=== PATIENT | male | born 1970 | race Caucasian/White ===

== ENCOUNTER 2016-08-01 05:23 | Inpatient (IN) | payer BC ==
[2016-07-13 13:48] VITALS: BMI 35.0
--- NOTE | 2016-07-13 14:09 | PAT Medication Instructions ---
Service Date Jul 13, 2016. Current Home Medication List B-Complex Vitamins (Vitamin B Complex), 1 TAB PO QAM Czopgukx-Idctpccs-Sdsfmdu-Vit (Liverite), 1 TAB PO QAM Vitamins C & E (Vitamin C), 1 TAB PO QAM Medication Instructions For Your Scheduled Surgery - Hold the following medications the morning of surgery: Vitamins C & E (Vitamin C), 1 TAB PO QAM B-Complex Vitamins (Vitamin B Complex), 1 TAB PO QAM Rkveaoua-Lgtqhwui-Gwuvbdi-Vit (Liverite), 1 TAB PO QAM Nothing to eat or drink after midnight If you have any questions please call us at [phone] or [phone] or [phone]
[2016-07-13 14:28] LABS: BASO % 0.3 %; BASO ABS # 0.02 K/uL (0-0.2); COMPLETE YES; EOS % 1.3 %; HEMATOCRIT 48.3 % (42-52); IG% 0.3 %; LYMPH % 30.5 %; LYMPH ABS # 1.91 K/uL (1.2-3.4); MEAN CORPUSCULAR HEMOGLOBIN 29.7 pg (25-34); MEAN CORPUSCULAR HGB CONC 35.4 g/dl (32-36); MEAN PLATELET VOLUME 11.6 fL (7.4-10.4); MONO % 8.6 %; PLATELET COUNT 168 K/uL (130-400); RED BLOOD COUNT 5.75 M/uL (4.7-6.1); WHITE BLOOD COUNT 6.27 K/uL (4.8-10.8)
[2016-07-13 14:45] LABS: BUN/CREATININE RATIO 11.9 (10-20); CALCIUM 9.6 mg/dl (8.5-10.1); CREATININE 0.9 mg/dl (0.60-1.40); POTASSIUM 4.4 mmol/L (3.5-5.1)
[2016-08-01] VITALS (9 sets, daily range): BP systolic 120–163; BP diastolic 71–96; PULSE 71–112; TEMP 36.4–36.9; O2SAT 90–97; Ht 170.2 cm; Wt 103.1 kg
[~2016-08-01] VITALS: Ht 170.2 cm; Wt 103.1 kg
[~2016-08-01 05:23] MED LIST: B-COTAB18 PO; VITACAP26 PO; [UNRECOGNIZED DRUG - CODE] PO
[2016-08-01] MEDS ORDERED: LACTATED RINGER'S 1000ML 1,000 ML IV SCH (06:00)
[2016-08-01] MEDS ORDERED: MIDAZOLAM HCL 1 MG/ML 2ML VIAL ONE (06:32)
[2016-08-01] MEDS ORDERED: ONDANSETRON INJ 2 MG/ML 2 ML VIAL ONE (06:32)
[2016-08-01] MEDS ORDERED: GLYCOPYRROLATE INJ 0.2 MG/ML VIAL ONE (06:32)
[2016-08-01] MEDS ORDERED: LIDOCAINE HCL 2% 2 ML VIAL (20MG/ML) ONE (06:32)
[2016-08-01] MEDS ORDERED: NEOSTIGMINE METHYLSULFATE 5 MG/5 ML SYR ONE (06:32)
[2016-08-01] MEDS ORDERED: PROPOFOL IV EMULSION 10 MG/ML 20 ML VIAL IV ONE (06:32)
[2016-08-01] MEDS ORDERED: ROCURONIUM BROMIDE 10 MG/ML 5 ML VIAL ONE ×3 (06:32→10:47)
[2016-08-01] MEDS ORDERED: FENTANYL CITRATE INJ 50 MCG/1 ML 2 ML VIAL ONE ×2 (06:32→09:43)
[2016-08-01] MEDS ORDERED: BUPIVACAINE LIPOSOME 1/3% 266 MG/20 ML VIAL INFIL ONE (07:14)
[2016-08-01] MEDS ORDERED: SODIUM CHLORIDE 0.9% PF 50 ML VIAL ONE (07:14)
--- NOTE | 2016-08-01 07:27 | History and Physical ---
History & Physical Date Aug 01, 2016. History of Present Illness The patient is a 46 year old male with a serendipitously found anterior mediastinal mass. We had a long discussion in the office and here. Will proceed with a robotic thymectomy today. Additional History Hepatic Disease: No Endocrine Disorder: No Kidney Disease: No Hypertension: No Heart Disease: No Bleeding Tendencies: No Infectious Diseases: No Allergies Coded Allergies: NO KNOWN DRUG ALLERGIES (Verified Allergy, Mild, ., 08/01/16) Home Medications Scheduled B-Complex Vitamins (Vitamin B Complex), 1 TAB PO QAM Zufsrytj-Qmdwcbtq-Wqaotek-Vit (Liverite), 1 TAB PO QAM Vitamins C & E (Vitamin C), 1 TAB PO QAM Physical Examination Skin: warm/dry, no rash Eyes: normal inspection, EOMI, sclerae normal ENT: normal ENT inspection, pharynx normal Head: normocephalic, atraumatic Neck: supple, no adenopathy, trachea midline Respiratory/Chest: lungs clear, normal breath sounds, no respiratory distress Cardiovascular: regular rate, rhythm, no edema, no murmur Abdomen / GI: normal bowel sounds, non tender Back: normal inspection Extremities: normal inspection, normal range of motion Neurologic/Psych: no motor/sensory deficits, alert, normal reflexes, oriented x 3 Diagnosis Anterior mediastinal mass. ASA Classification: ASA Class I Plan of Treatment Robotic thymectomy. Long discussion with patient and family about risks / benefits.
[2016-08-01] MEDS ORDERED: HYDROmorphone INJ 2 MG/ML SYR/VIAL IV PRN (07:30)
[2016-08-01] MEDS ORDERED: PHENYLEPHRINE 100MCG/ML 5ML SYR IV PRN (07:30)
[2016-08-01] MEDS ORDERED: EpHEDrine SULFATE INJ 50 MG/ML AMP IV PRN (07:30)
[2016-08-01] MEDS ORDERED: ATROPINE SULFATE 0.1 MG/ML 5ML SYR IV PRN (07:30)
[2016-08-01] MEDS ORDERED: ONDANSETRON INJ 2 MG/ML 2 ML VIAL IV PRN ×2 (07:30→11:45)
[2016-08-01] MEDS ORDERED: DEXAMETHASONE SOD INJ 4 MG/ML VIAL ONE (09:47)
[2016-08-01] MEDS ORDERED: HYDROmorphone INJ 2 MG/ML SYR/VIAL ONE (10:37)
[2016-08-01] MEDS ORDERED: OXYCODONE HCL IR 5 MG TAB (IMMEDIATE RELEASE) PO PRN (11:45)
[2016-08-01] MEDS ORDERED: MoRPHine SULFATE 2 MG/ML CARP IV PRN (11:45)
--- NOTE | 2016-08-01 12:05 | OPERATIVE REPORT ---
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 POSTOPERATIVE DIAGNOSIS: Same. PROCEDURE: Robotic left thoracoscopic thymectomy. SURGEON: Dr. Boston. PUBLIC RELATIONS SENIOR ASSOCIATE: Fracisco Miranda PA-C. ANESTHESIA: General anesthesia endotracheal intubation with double lumen tube. SPECIFICS OF PROCEDURE: Mr. Ortega is a 46-year-old male with no medical problems whatsoever except for the fact that he is a bit overweight. He works out and is in good physical shape and has never smoked. He underwent a CT scan as he was a potential bone marrow transplant donor for a member of his family and was found to have an anterior mediastinal mass. He was referred to me. This obviously needed to come out. On 08/01/2016 the patient had an uncomplicated robotic left thoracoscopic thymectomy. This is a very large mass and we removed it. There was no associated lymph nodes. It had a capsule and was not growing into any of the surrounding structures. He tolerated it well except we did have to extend our incision in order to remove the mass as it was rather large. PROCEDURE: The patient was brought to the operating room and laid in supine position. General anesthesia induced. Endotracheal intubation was performed. The patient was left in a supine position with his left arm dropped a bit. Three separate robotic ports were placed at about the third interspace, fifth interspace and fifth interspace laterally, middle and then more medial port. We were able to see that we were in the pleural cavity quite easily. I made an operator/assistant foreman port and triangulating it between the middle and the lateral port, a couple interspaces below. The mass was immediately seen and was rather large. I freed it up meticulously from the phrenic nerve as it was adherent to it. This came off nicely and took special care not to use the cautery and to avoid any injury. Most of the time blunt dissection was done. I then was able to pull this up. I freed it up laterally and rotated it medially and then started medially and free up our attachments and came upon there were a couple of vessels that needed to be clipped coming off the innominate vein and after we got these out the mass was completely free. I then placed the mass in an Endobag. Unfortunately, it was so large I had to enlarge the insertion tract of the operator/assistant foreman's port to about 8 cm and was able to deliver it out without using a retractor but it was very large. We lost about 200 mL of blood. I irrigated out the chest nicely. Exparel 266 mg mixed in 60 mL total of normal saline was injected from the 2nd to the 11th rib although it was a bit difficult down in the lower ribs. He had no air leak at the conclusion of the case. I did place a 24-[place] chest tube in the anterior thoracostomy port and directed towards the apex. 0 Vicryl was used to close the muscle layers and 4-0 Monocryl was used to close all of the skin of the thoracoscopy incisions. Heavy silk suture was used to anchor the chest tube to the patient's skin. He tolerated it well. I attest to the content of the Intraoperative Record and any orders documented therein. Any exceptio ns are noted below.
--- NOTE | 2016-08-01 12:37 | DIAGNOSTIC IMAGING REPORT ---
CHEST ONE VIEW PORTABLE CLINICAL HISTORY: s/p med mass excision postoperative evaluation COMPARISON STUDY: No previous studies for comparison. FINDINGS: Cardiomediastinal silhouette is unremarkable. Diaphragms are smooth. There is a chest tube in the left mid chest region. There is no significant pneumothorax. Diaphragms smooth. IMPRESSION: No evidence pneumothorax. Left-sided chest tube within the central left hemithorax Electronically signed by: Scot Jeffery M.D. 08/01/2016 12:36 PM Dictated Date/Time: 08/01/2016 12:31 PM
--- NOTE | 2016-08-01 12:41 | Medical Student: [facility] ---
Operative Report Operative Date Aug 01, 2016. Pre-Operative Diagnosis Anterior Mediastinal Mass likey Thymoma Post-Operative Diagnosis same Procedure(s) Performed Robotic thorascopic thymectomy Surgeon Dr. Boston Delineator Surgeon(s) Fracisco Miranda PA-C Estimated Blood Loss 100cc Findings Thymoma approximately 5cm in diameter Specimens Anterior Mediastinal Mass Drains Chest tube Complication(s) None Disposition Recovery Room / PACU
[2016-08-01] MEDS: D5W AND 1/2NSS 1,000 ML IV SCH ×2 (14:09→21:32)
[2016-08-01] MEDS: KETOROLAC TROMETHAMINE 15 MG/ML VIAL IV. SCH ×2 (14:10→21:35)
--- NOTE | 2016-08-01 14:33 | Anesthesiology Progress Note ---
Anesthesia Post Op Note Date & Time Aug 01, 2016 at 14:33 Vital Signs Pain Intensity: 7.0 Vital Signs Past 12 Hours Date Time Temp Pulse Resp B/P Pulse Ox O2 Delivery O2 Flow Rate FiO2 08/01/16 14:04 36.9 103 20 155/87 92 Nasal Cannula 4.0 08/01/16 13:46 36.7 95 20 132/86 91 Nasal Cannula 4.0 08/01/16 12:30 97 16 154/81 97 Nasal Cannula 4 08/01/16 12:20 80 16 150/97 99 Nasal Cannula 4 08/01/16 12:10 75 16 161/99 99 Mask 10 08/01/16 12:01 87 14 164/93 99 Mask 10 08/01/16 11:52 36.5 75 14 152/85 99 Mask 10 08/01/16 05:38 36.4 99 20 156/96 97 Room Air Notes Mental Status: alert / awake / arousable, participated in evaluation Pt Amnestic to Procedure: Yes Nausea / Vomiting: adequately controlled Pain: adequately controlled Airway Patency, RR, SpO2: stable & adequate BP & HR: stable & adequate Hydration State: stable & adequate Anesthetic Complications: no major complications apparent
[2016-08-01] MEDS: METOCLOPRAMIDE HCL INJ 5 MG/ML 2 ML VIAL IV. SCH ×2 (15:26→21:35)
[2016-08-01] MEDS: ACETAMINOPHEN IV 1,000 MG in EMPTY BAG 0 ML IV SCH ×2 (15:26→21:36)
[2016-08-01] MEDS: CEFAZOLIN IV 2,000 MG in DEXTROSE 5% 50ML 100 ML IV SCH ×2 (15:47→21:36)
[2016-08-01] MEDS: DOCUSATE SODIUM 100 MG CAP PO SCH (20:54)
[2016-08-02 04:11] VITALS: BP 130/66; PULSE 71; TEMP 36.7; O2SAT 93
[2016-08-02] MEDS: KETOROLAC TROMETHAMINE 15 MG/ML VIAL IV. SCH (05:41)
[2016-08-02] MEDS: METOCLOPRAMIDE HCL INJ 5 MG/ML 2 ML VIAL IV. SCH (05:41)
[2016-08-02] MEDS: ACETAMINOPHEN IV 1,000 MG in EMPTY BAG 0 ML IV SCH (05:42)
[2016-08-02] MEDS: D5W AND 1/2NSS 1,000 ML IV SCH (07:32)
--- NOTE | 2016-08-02 07:40 | DIAGNOSTIC IMAGING REPORT ---
CHEST ONE VIEW PORTABLE CLINICAL HISTORY: s/p med mass excision postoperative evaluation COMPARISON STUDY: 08/01/2016 FINDINGS: Stable postoperative changes left hemithorax. Subsegmental atelectasis left midlung. Left-sided chest tube in position. No pneumothorax. IMPRESSION: Stable postoperative changes left hemithorax. No evidence pneumothorax. Stable sub-segmental atelectasis left midlung Electronically signed by: Scot Jeffery M.D. 08/02/2016 7:39 AM Dictated Date/Time: 08/02/2016 7:34 AM
[2016-08-02] MEDS ORDERED: OXYC-57 PO (07:59)
[2016-08-02] MEDS ORDERED: CLC100 PO (07:59)
--- NOTE | 2016-08-02 08:01 | Discharge Instructions ---
Discharge Instructions Date of Service Aug 02, 2016. Admission Reason for Admission: Mediastinal Mass Discharge Discharge Diagnosis / Problem: Mediastinal Mass Discharge Goals Goal(s): Learn about illness Activity Recommendations Activity Limitations: as noted below Lifting Limitations: none Shower/Bathe: may shower/bathe in [address] if taking percocet 2. Do not fly until cleared to do so by Dr. Boston 3. You may remove dressings in 3 days and shower thereafter. No tub baths. . Instructions / Follow-Up Instructions / Follow-Up 1. Office appointment with Dr. Boston in 1 week. Office will call with date and time of appointment. You will need a chest x-ray prior to appointment. Current Hospital Diet Patient's current hospital diet: Regular Diet Discharge Diet Recommended Diet: Regular Diet Procedures Procedures Performed: Robotic assisted thymectomy Pending Studies Studies pending at discharge: no Medical Emergencies . Who to Call and When: Medical Emergencies: If at any time you feel your situation is an emergency, please call 911 immediately. . Non-Emergent Contact Non-Emergency issues call your: Surgeon Call Non-Emergent contact if: you have a fever, your pain is not controlled, wound has increased drainage . "Provider Documentation" section prepared by Nathaniel Miranda. VTE Core Measure Inpt VTE Proph given/why not?: Enoxaparin (Lovenox)SQ
--- NOTE | 2016-08-02 08:31 | DIAGNOSTIC IMAGING REPORT ---
CHEST ONE VIEW PORTABLE CLINICAL HISTORY: Chest tube removal. COMPARISON STUDY: Chest radiograph August 02, 2016. FINDINGS: Lung volumes are normal. Hazy left midlung opacity is unchanged. The left chest tube has been removed. There is no pneumothorax. Cardiac size is normal. Mediastinal contours are normal. IMPRESSION: 1. No pneumothorax following left chest tube removal. 2. No change in mild left midlung opacity. Electronically signed by: Shamar Nelson M.D. 08/02/2016 8:30 AM Dictated Date/Time: 08/02/2016 8:23 AM
[2016-08-02] MEDS ORDERED: ENOXAPARIN 40 MG/0.4 ML SYR SQ SCH (09:00)
[2016-08-02] MEDS: DOCUSATE SODIUM 100 MG CAP PO SCH (09:02)
--- NOTE | 2016-08-02 09:55 | Anesthesiology Progress Note ---
Anesthesia Post Op Note Date & Time Aug 02, 2016 at 09:54 Vital Signs Pain Intensity: 4.0 Vital Signs Past 12 Hours Date Time Temp Pulse Resp B/P Pulse Ox O2 Delivery O2 Flow Rate FiO2 08/02/16 04:11 36.7 71 17 130/66 93 Room Air 08/01/16 23:48 Nasal Cannula 08/01/16 23:05 36.7 92 18 120/73 90 Room Air Notes Mental Status: alert / awake / arousable Pt Amnestic to Procedure: Yes Nausea / Vomiting: adequately controlled Pain: adequately controlled Airway Patency, RR, SpO2: stable & adequate BP & HR: stable & adequate Hydration State: stable & adequate
[2016-08-02 10:25] VITALS: BP 130/66; PULSE 71; TEMP 36.7; O2SAT 93
--- NOTE | 2016-08-10 11:18 | DISCHARGE SUMMARY ---
DISCHARGE DIAGNOSIS: 1. Thymoma. HOSPITAL COURSE: This is a very nice 46-year-old male who was being worked up as a bone marrow donor and underwent a CT scan of his chest which found an asymptomatic mass in his anterior mediastinum. We suspected this was a thymoma, but he had no evidence of any metastases or lymphadenopathy. We elected to proceed with a robotic thymectomy. On 08/01/2016, the patient underwent an uncomplicated robotic thymectomy from the left side. We used 3 incisions. He tolerated it well. We placed a chest tube had no air leak and very little in the way of drainage. We removed his chest tube the following day and discharged him home. He was tolerating diet. His pain was very well controlled. I will see him back in the office in a week to go over his final pathology.
== END 2016-08-02 10:56 | disposition home or self-care (01) | DRG 804 ==
LOC: ENRESERVTM → ENRESERVDT → C.ACU 05:23 → C.MSN 11:36
PROVIDERS: ADMIT Surgery; ATTEND Surgery
PROC: 07TM4ZZ Resection of Thymus, Percutaneous Endoscopic Approach (ICD-10-PCS; principal; 2016-08-01 07:30)
PROC: 8E0W4CZ Robotic Assisted Procedure of Trunk Region, Percutaneous Endoscopic Approach (ICD-10-PCS; principal; 2016-08-01 07:30)
DX: D15.0 Benign neoplasm of thymus (principal); E66.3 Overweight; Z68.35 Body mass index [BMI] 35.0-35.9, adult

== ENCOUNTER → 2016-08-06 | Outpatient (CLI) | payer BC ==
[~2016-08-06] MED LIST changes: +CLC100 PO; +OXYC-57 PO
--- NOTE | 2016-08-06 13:09 | DIAGNOSTIC IMAGING REPORT ---
TWO VIEW CHEST CLINICAL HISTORY: Thymoma. FINDINGS: PA and lateral chest radiographs are compared to study dated 08/02/2016 and correlated with chest CT dated 06/08/2016. The cardiomediastinal silhouette is unremarkable. The lungs and pleural spaces are clear. There is no pneumothorax. The bony thorax appears intact. IMPRESSION: No active disease in the chest. Electronically signed by: Baldomero Díaz M.D. 08/06/2016 1:08 PM Dictated Date/Time: 08/06/2016 1:08 PM
== END | disposition home or self-care (01) ==
LOC: C.RAD1850 12:26
PROVIDERS: ATTEND Surgery
DX: D15.0 Benign neoplasm of thymus (principal)

== ENCOUNTER → 2016-11-10 | Outpatient (CLI) | payer BC ==
[2016-11-10 12:01] LABS: BASO % 0.3 %; BASO ABS # 0.02 K/uL (0-0.2); COMPLETE YES; EOS % 3.1 %; HEMATOCRIT 46.8 % (42-52); IG% 0.8 %; LYMPH % 27.9 %; LYMPH ABS # 1.71 K/uL (1.2-3.4); MEAN CELL VOLUME 84.9 fL (80-100); MEAN CORPUSCULAR HEMOGLOBIN 29.6 pg (25-34); MEAN CORPUSCULAR HGB CONC 34.8 g/dl (32-36); MEAN PLATELET VOLUME 11.7 fL (7.4-10.4); MONO % 7.2 %; NEUT % 60.7 %; PLATELET COUNT 151 K/uL (130-400); RED BLOOD COUNT 5.51 M/uL (4.7-6.1); WHITE BLOOD COUNT 6.14 K/uL (4.8-10.8)
[2016-11-10 12:30] LABS: CHOLESTEROL/HDL RATIO 6.8; PROSTATE SPECIFIC ANTIGEN 0.578 ng/ml (0.000-4.000)
[2016-11-10 12:47] LABS: HEPATITIS B AB NEG
== END | disposition home or self-care (01) ==
LOC: C.LAB 11:38
PROVIDERS: ATTEND Internal Medicine
DX: R74.8 Abnormal levels of other serum enzymes (principal); Z12.5 Encounter for screening for malignant neoplasm of prostate

== ENCOUNTER → 2017-03-08 | Outpatient (CLI) | payer BC ==
[~2017-03-08] MED LIST changes: -OXYC-57 PO
--- NOTE | 2017-03-08 16:36 | DIAGNOSTIC IMAGING REPORT ---
(CHEST) THORAX WITHOUT CLINICAL HISTORY: Z86.018 thymoma status post resection. COMPARISON STUDY: Outside CT scan dated 06/08/2016 CT DOSE: 836.30 mGy.cm TECHNIQUE: CT of the thorax was performed from the thoracic inlet to the lung bases. Images are reviewed in the axial, sagittal, and coronal planes. IV contrast was not administered for this examination. A dose lowering technique was utilized adhering to the principles of ALARA. FINDINGS: Thyroid: Imaged portions of the thyroid gland are normal in appearance. Thoracic aorta: The thoracic aorta is normal in course and caliber, noting standard 3 vessel arch anatomy. Heart: The heart is normal in size and configuration, without pericardial effusion. Lungs and pleural spaces: No pleural effusions are visualized. There is no evidence of focal pulmonary consolidation. There is a stable 3 mm right apical pulmonary nodule as visualized in image #[id number]. Mediastinum: There is been interval resection of the 6.7 cm anterior mediastinal mass. There is 7 mm of residual soft tissue anterior to the aortic arch. This may be postsurgical. This examination will serve as a postsurgical baseline. Surveillance is recommended. Loli: There is no evidence of pathologic hilar adenopathy given the limitations of a noncontrast study. Axilla: There is no evidence of pathologic axillary lymphadenopathy Upper abdomen: There is hepatic steatosis Skeletal structures: There are no lytic or blastic osseous lesions. IMPRESSION: 1. Interval resection of the 6.7 cm anterior mediastinal mass 2. 7 mm of residual soft tissue anterior to the aortic arch. This may be postsurgical. This examination will serve as a postsurgical baseline. Further surveillance is recommended. 3. Stable 3 mm right apical pulmonary nodule Electronically signed by: Primo Rolle M.D. 03/08/2017 4:35 PM Dictated Date/Time: 03/08/2017 4:29 PM
== END | disposition home or self-care (01) ==
LOC: C.CTS 16:19
PROVIDERS: ATTEND Surgery
DX: Z86.018 Personal history of other benign neoplasm (principal); Z98.890 Other specified postprocedural states; R91.1 Solitary pulmonary nodule

== ENCOUNTER → 2017-07-24 | Outpatient (CLI) | payer BC ==
[2017-07-24 09:57] LABS: ALBUMIN 4.3 gm/dl (3.4-5.0)
[2017-07-24 10:00] LABS: TOTAL PROTEIN 7.5 gm/dl (6.4-8.2)
== END | disposition home or self-care (01) ==
LOC: C.LAB1850 08:33
PROVIDERS: ATTEND Internal Medicine
DX: R74.8 Abnormal levels of other serum enzymes (principal); E78.1 Pure hyperglyceridemia

== ENCOUNTER 2021-04-30 01:12 | Inpatient (IN) ==
[2021-04-30] MEDS ORDERED: dexAMETHasone**PF** 10 MG/ML VIAL IV ONE (01:28)
[2021-04-30] MEDS ORDERED: ALBUT/IPRATROP 3MG/0.5MG NEB 3 ML VIAL INH STA (01:28)
[2021-04-30 01:53] LABS: Basophils # (auto) 0.02 K/uL (0-0.2); Basophils % (auto) 0.2 %; Eosinophils # (auto) 0.01 K/uL (0-0.5); Eosinophils % (auto) 0.1 %; Hematocrit (blood only) 46.7 % (42-52); Hemoglobin 16.3 g/dL (14.0-18.0); Immature Granulocytes # (auto) 0.05 K/uL (0.00-0.02); Immature Granulocytes % (auto) 0.4 %; Lymphocytes # (auto) 0.51 K/uL (1.2-3.4); Lymphocytes % (auto) 4.3 %; Mean Corpuscular Hemoglobin 30.8 pg (25-34); Mean Corpuscular Hgb Conc 34.9 g/dL (32-36); Mean Corpuscular Volume 88.3 fL (80-100); Mean Platelet Volume 11.6 fL (7.4-10.4); Monocytes # (auto) 0.58 K/uL (0.11-0.59); Monocytes % (auto) 4.8 %; Neutrophils # (auto) 10.79 K/uL (1.4-6.5); Neutrophils % (auto) 90.2 %; Platelet Count 148 K/uL (130-400); RDW Standard Deviation 42.2 fL (36.4-46.3); Red Blood Count 5.29 M/uL (4.7-6.1); White Blood Count 11.96 K/uL (4.8-10.8)
[2021-04-30 02:26] LABS: Alanine Aminotransferase 114 (12-78); Albumin Globulin Ratio 0.9 (0.9-2); Albumin Level 3.6 gm/dl (3.4-5.0); Alkaline Phosphatase 83 U/L (45-117); Aspartate Aminotransferase 60 U/L (15-37); BUN Creatinine Ratio 16.2 (10-20); Bilirubin,Total 1.4 mg/dl (0.2-1); Blood Urea Nitrogen 16 mg/dl (7-18); Calcium 9.6 mg/dl (8.5-10.1); Carbon Dioxide 23 mmol/L (21-32); Chloride 101 mmol/L (98-107); Creatinine Clr Calc Pharmacy 101.7 ml/min; Est GFR (African American) 104.9 ml/min; Est GFR (Non-African American) 90.5 ml/min; Globulin 4.2 gm/dl (2.5-4.0); Glucose 332 mg/dl (70-99); Potassium 3.9 mmol/L (3.5-5.1); Sodium 135 mmol/L (136-145); Total Protein 7.8 gm/dl (6.4-8.2); Troponin I < 0.015 ng/ml (0-0.045)
[2021-04-30] MEDS ORDERED: SODIUM CHLORIDE 0.9% 1000ML 1,000 ML IV ONE (02:26)
[2021-04-30] MEDS ORDERED: NovoLIN-R INSULIN PER UNIT CHARGE IV STA (02:26)
[2021-04-30 02:41] LABS: Influenza A virus by PCR Negative (Neg); Influenza B virus by PCR Negative (Neg); RSV by PCR Negative (Neg)
[2021-04-30 02:48] LABS: SARS CoV2 RNA(COVID-19) InHosp POSITIVE (Negative)
[2021-04-30 02:50] LABS: Beta-Hydroxybutyrate 26.07 mg/dl (0.2-2.81)
--- NOTE | 2021-04-30 03:08 | Emergency Department Note ---
Impression & Plan Pneumonia due to 2019-nCoV, Hypoxia, Acute hyperglycemia ED Provider Note CHIEF COMPLAINT: Shortness of breath HISTORY OF PRESENT ILLNESS: This 51-year-old male patient presents to the emergency department presents emergency department with complaints of shortness of breath. Patient states he has been ill for about 1 week. He has had some fevers, cough and believes it may be COVID-19. He is not vaccinated. He called the ambulance today because the shortness of breath became severe. He was noted to be 71% on room air by EMS. He is currently saturating above 90% on nonrebreather. Patient has been using occasional Tylenol for fevers. He states his is at home with a very similar illness but seems to be getting better. His daughter graduates from [employer] next week and he would like to see her graduate. REVIEW OF SYSTEMS: A review of systems was performed with positives and pertinent negatives listed in the history of present illness. 10 systems were reviewed and are otherwise negative. ALLERGIES: see below MEDICATIONS: see below PMH: see below SOCIAL HISTORY: see below DDx: Reactive airway disease, pneumonia, pneumothorax, COPD, CHF, infections, cardiac ischemia, pulmonary embolism, musculoskeletal, gastrointestinal, as well as other pathologies. PHYSICAL EXAM: Vital signs reviewed. Noted to be hypoxic on room air to 71% General: Chronically ill-appearing 51-year-old male, in some respiratory discomfort on nonrebreather. HEENT: No scleral icterus, PERRLA, neck supple. Atraumatic. Cardiovascular: Tachycardic rate and regular rhythm, no extra sounds. Pulmonary: Coarse breath sounds to auscultation bilaterally, increased work of breathing. On nonrebreather Abdomen: Soft, nontender, nondistended, positive bowel sounds. Musculoskeletal: Atraumatic, no peripheral edema. Neurologic: Patient awake alert and oriented x 3 Skin: Warm, dry, no rash EMERGENCY DEPARTMENT COURSE/MDM: This patient was evaluated and appeared to be in no significant distress. IV access was obtained and laboratory work was drawn. Patient was placed on a monitor car operator noted to be in a sinus tachycardia. Chest x-ray was performed and reveals a significant viral pneumonitis pattern. Patient is tested positive for COVID-19. He was given IV dexamethasone, DuoNeb treatment. He was able to maintain his oxygen saturations on 15 L nonrebreather. An order for BiPAP was placed as the patient seem to be tired from a respiratory standpoint and awfully tachypneic. CT imaging of the chest was performed and reveals no evidence of PE. The hospitalist service was consulted as the patient will require further management. The patient has expressed an understanding of the plan and agreed. MONITORING: An order for cardiac monitoring was placed and the patient is noted to be in a sinus tachycardia at 122 beats per minute. RADIOLOGY: See below EKG: Sinus tachycardia at 106 bpm. Left atrial enlargement. No PVC, no PAC. Nonspecific ST abnormality. DISPOSITION:admit I have personally spent greater than 40 minutes of critical care time in the direct management of this patient. This includes bedside care, interpretation of diagnostic studies, and testing, discussion with consultants, patient, and family members, and other required patient management activities. This 40 minutes is in excess of all separately billable procedures. Past Med/Surg History Medical History (Updated 05/01/21 @ 21:19 by Denzel Pizarro) Thymoma, benign Surgical History History of hernia repair S/P tonsillectomy S/P wisdom tooth extraction Family History Grandfather (Maternal) Myocardial infarction Grandfather (Paternal) Myocardial infarction Father AML (acute myeloblastic leukemia) Denies family history of Ovarian cancer Prostate cancer Breast cancer Colorectal cancer Social History Smoking Status: Never smoker Hx Alcohol Use: No Hx Substance Use: No Preferred Language: Lao Communication Ability: Effective Hairspring Truer Required: No Beliefs That Will Affect Care: None marital status: Current Living Situation: Family current occupational status: employed current occupation: Internet Sales Representative Other Information That Helps Us Care for You: No Feels Safe at Home: Yes Safety Concerns: Feels Safe At This Time Childhood Exposure to Second-Hand Smoke: Yes Dental Care, Regularly: Yes Physical Activity Frequency: 5-6 Times per Week Seatbelt Use: always Sunscreen Use: Yes Assistive Devices: Glasses and Oxygen - Continuous Allergies Allergies Allergy/AdvReac Type Severity Reaction Status Date / Time No Known Drug Allergies Allergy Mild . Verified 04/30/21 02:37 Home Meds Home Medications Medication Instructions Recorded Confirmed ascorbic acid (vitamin C) 500 mg 0 mg PO DAILY 04/30/21 04/30/21 tablet (Vitamin C) cholecalciferol (vitamin D3) 25 0 mcg PO DAILY 04/30/21 04/30/21 mcg (1,000 unit) tablet (Vitamin D3) ivermectin 3 mg tablet 12 mg PO .TODAY 04/30/21 04/30/21 vitamin B complex 1 tab PO DAILY 04/30/21 04/30/21 Results & Data (ED) Vital Signs Vital Signs - 24 hr 04/30/21 01:13 04/30/21 01:18 Temperature 36.5 C Temperature Source Temporal Artery Scan Pulse Rate 122 H Pulse Rate [Right Finger] 110 H Respiratory Rate 38 H 20 Respiratory Effort / Characteristics Labored Short of Breath Non-Labored Spontaneous Respiratory Depth Shallow Normal Blood Pressure 155/94 H Blood Pressure [Right Arm] 119/87 Blood Pressure Mean 114 Blood Pressure Mean [Right Arm] 97 Blood Pressure Position Sitting Pulse Oximetry 90 71 L Oxygen Delivery Method Non-rebreather Room Air Oxygen Flow Rate 15 Sepsis Recent Fever Within 48 Hours No Sepsis New/Unexplained Change in Mental Status N/A Sepsis Action Taken by Nursing No Action Required Oxygen Flow Rate - Titration 15 Pulse Oximetry Post Tiitration 91 Home Medications Current Medication List: was personally reviewed by me Laboratory Data Attestation: I reviewed the patient's lab results. Result diagrams: 05/04/21 07:10 05/04/21 07:10 Lab Results 04/30/21 04/30/21 04/30/21 Range/Units 01:39 01:39 01:39 WBC 11.96 H (4.8-10.8) K/uL RBC 5.29 (4.7-6.1) M/uL Hgb 16.3 (14.0-18.0) g/dL Hct 46.7 (42-52) % MCV 88.3 (80-100) fL MCH 30.8 (25-34) pg MCHC 34.9 (32-36) g/dL RDW Std Deviation 42.2 (36.4-46.3) fL RDW Coeff of Wan 13.0 (11.5-14.5) % Plt Count 148 (130-400) K/uL MPV 11.6 H (7.4-10.4) fL Immature Gran % (Auto) 0.4 % Neut % (Auto) 90.2 % Lymph % (Auto) 4.3 % Harney % (Auto) 4.8 % Eos % (Auto) 0.1 % Baso % (Auto) 0.2 % Neut # (Auto) 10.79 H (1.4-6.5) K/uL Lymph # (Auto) 0.51 L (1.2-3.4) K/uL Harney # (Auto) 0.58 (0.11-0.59) K/uL Eos # (Auto) 0.01 (0-0.5) K/uL Baso # (Auto) 0.02 (0-0.2) K/uL Immature Gran # (Auto) 0.05 H (0.00-0.02) K/uL Sodium 135 L (136-145) mmol/L Potassium 3.9 (3.5-5.1) mmol/L Chloride 101 (98-107) mmol/L Carbon Dioxide 23 (21-32) mmol/L Anion Gap 11.0 (3-11) BUN 16 (7-18) mg/dl Creatinine 0.96 (0.6-1.4) mg/dl Est Cr Clr Drug Dosing 101.7 ml/min Est GFR ( Amer) 104.9 ml/min Est GFR (Non-Af Amer) 90.5 ml/min BUN/Creatinine Ratio 16.2 (10-20) Glucose 332 H* (70-99) mg/dl POC Glucose (70-99) mg/dl Calcium 9.6 (8.5-10.1) mg/dl Total Bilirubin 1.4 H (0.2-1) mg/dl AST 60 H (15-37) U/L ALT 114 H (12-78) Alkaline Phosphatase 83 (45-117) U/L Troponin I < 0.015 (0-0.045) ng/ml C-Reactive Protein 21.20 H (0-0.29) mg/dl Total Protein 7.8 (6.4-8.2) gm/dl Albumin 3.6 (3.4-5.0) gm/dl Globulin 4.2 H (2.5-4.0) gm/dl Albumin/Globulin Ratio 0.9 (0.9-2) Beta-Hydroxybutyric Acd 26.07 H (0.2-2.81) mg/dl SARS-CoV-2 (PCR) (Negative) Influenza Type A (PCR) (Neg) Influenza Type B (PCR) (Neg) RSV (RT-PCR) (Neg) 04/30/21 04/30/21 Range/Units 01:41 04:35 WBC (4.8-10.8) K/uL RBC (4.7-6.1) M/uL Hgb (14.0-18.0) g/dL Hct (42-52) % MCV (80-100) fL MCH (25-34) pg MCHC (32-36) g/dL RDW Std Deviation (36.4-46.3) fL RDW Coeff of Wan (11.5-14.5) % Plt Count (130-400) K/uL MPV (7.4-10.4) fL Immature Gran % (Auto) % Neut % (Auto) % Lymph % (Auto) % Harney % (Auto) % Eos % (Auto) % Baso % (Auto) % Neut # (Auto) (1.4-6.5) K/uL Lymph # (Auto) (1.2-3.4) K/uL Harney # (Auto) (0.11-0.59) K/uL Eos # (Auto) (0-0.5) K/uL Baso # (Auto) (0-0.2) K/uL Immature Gran # (Auto) (0.00-0.02) K/uL Sodium (136-145) mmol/L Potassium (3.5-5.1) mmol/L Chloride (98-107) mmol/L Carbon Dioxide (21-32) mmol/L Anion Gap (3-11) BUN (7-18) mg/dl Creatinine (0.6-1.4) mg/dl Est Cr Clr Drug Dosing ml/min Est GFR ( Amer) ml/min Est GFR (Non-Af Amer) ml/min BUN/Creatinine Ratio (10-20) Glucose (70-99) mg/dl POC Glucose 310 H* (70-99) mg/dl Calcium (8.5-10.1) mg/dl Total Bilirubin (0.2-1) mg/dl AST (15-37) U/L ALT (12-78) Alkaline Phosphatase (45-117) U/L Troponin I (0-0.045) ng/ml C-Reactive Protein (0-0.29) mg/dl Total Protein (6.4-8.2) gm/dl Albumin (3.4-5.0) gm/dl Globulin (2.5-4.0) gm/dl Albumin/Globulin Ratio (0.9-2) Beta-Hydroxybutyric Acd (0.2-2.81) mg/dl SARS-CoV-2 (PCR) POSITIVE A* (Negative) Influenza Type A (PCR) Negative (Neg) Influenza Type B (PCR) Negative (Neg) RSV (RT-PCR) Negative (Neg) Administered Medications Ascorbic Acid (Ascorbic Acid 500 Mg Tab) 500 mg PO DAILY [facility] Stop: 05/30/21 08:59 Last Admin: 05/04/21 09:12 Dose: 500 mg Documented by: [id number] Admin: 05/03/21 08:14 Dose: 500 mg Documented by: [id number] Admin: 05/02/21 08:54 Dose: 500 mg Documented by: [id number] Admin: 05/01/21 15:12 Dose: 500 mg Documented by: [id number] Admin: 04/30/21 08:36 Dose: 500 mg Documented by: [id number] Azithromycin (Azithromycin 250 Mg Tab) 250 mg PO [facility] Stop: 05/05/21 08:59 Last Admin: 05/04/21 09:12 Dose: 250 mg Documented by: [id number] Admin: 05/03/21 08:14 Dose: 250 mg Documented by: [id number] Admin: 05/02/21 09:44 Dose: 250 mg Documented by: [id number] Baricitinib (4mg Daily X 14 Days (Egfr >60 Ml/Min/1.73m2)) 4 mg PO DAILY [facility]; Protocol Stop: 05/14/21 10:59 Last Admin: 05/04/21 09:11 Dose: 4 mg Documented by: [id number] Admin: 05/03/21 08:15 Dose: 4 mg Documented by: [id number] Admin: 05/02/21 08:53 Dose: 4 mg Documented by: [id number] Admin: 05/01/21 18:12 Dose: 4 mg Documented by: [id number] Admin: 04/30/21 10:47 Dose: 4 mg Documented by: [id number] Dextrose (Dextrose 50% 50 Ml Syringe) 25 - 50 ml IV UD PRN; Protocol PRN Reason: Hypoglycemia Protocol Stop: 05/30/21 06:32 Last Admin: 05/02/21 05:03 Dose: 25 ml Documented by: [id number] Enoxaparin Sodium (Enoxaparin Inj 60 Mg/0.6 Ml Syr) 50 mg SQ Q12H [facility] Stop: 05/30/21 07:59 Last Admin: 05/04/21 09:13 Dose: 50 mg Documented by: [id number] Admin: 05/03/21 20:38 Dose: 50 mg Documented by: [id number] Admin: 05/03/21 08:15 Dose: 50 mg Documented by: [id number] Admin: 05/02/21 20:23 Dose: 50 mg Documented by: [id number] Admin: 05/02/21 08:54 Dose: 50 mg Documented by: [id number] Admin: 05/01/21 20:27 Dose: 50 mg Documented by: [id number] Admin: 05/01/21 09:47 Dose: 50 mg Documented by: [id number] Admin: 04/30/21 21:05 Dose: 50 mg Documented by: [id number] Admin: 04/30/21 08:33 Dose: 50 mg Documented by: [id number] Famotidine (Famotidine 20 Mg Tab) 20 mg PO BID [facility] Stop: 05/30/21 08:59 Last Admin: 05/04/21 09:13 Dose: 20 mg Documented by: [id number] Admin: 05/03/21 20:37 Dose: 20 mg Documented by: [id number] Admin: 05/03/21 08:14 Dose: 20 mg Documented by: [id number] Admin: 05/02/21 20:23 Dose: 20 mg Documented by: [id number] Admin: 05/02/21 08:55 Dose: 20 mg Documented by: [id number] Admin: 05/01/21 20:25 Dose: 20 mg Documented by: [id number] Admin: 05/01/21 09:58 Dose: 20 mg Documented by: [id number] Admin: 04/30/21 21:06 Dose: 20 mg Documented by: [id number] Admin: 04/30/21 08:44 Dose: 20 mg Documented by: [id number] Guaifenesin (Guaifenesin 600 Mg Tabcr) 1,200 mg PO Q12 [facility] Stop: 05/30/21 08:59 Last Admin: 05/04/21 09:13 Dose: 1,200 mg Documented by: [id number] Admin: 05/03/21 20:37 Dose: 1,200 mg Documented by: [id number] Admin: 05/03/21 08:16 Dose: 1,200 mg Documented by: [id number] Admin: 05/02/21 20:23 Dose: 1,200 mg Documented by: [id number] Admin: 05/02/21 08:54 Dose: 1,200 mg Documented by: [id number] Admin: 05/01/21 20:26 Dose: 1,200 mg Documented by: [id number] Admin: 05/01/21 09:58 Dose: 1,200 mg Documented by: [id number] Admin: 04/30/21 21:06 Dose: 1,200 mg Documented by: [id number] Admin: 04/30/21 08:40 Dose: 1,200 mg Documented by: [id number] Dexamethasone 6 mg/ Syringe 1.5 mls @ 1 mls/min IV Q24H [facility] Stop: 05/30/21 08:59 Last Admin: 05/04/21 09:38 Dose: 1 mls/min Documented by: [id number] Admin: 05/03/21 08:14 Dose: 1 mls/min Documented by: [id number] Admin: 05/02/21 08:53 Dose: 1 mls/min Documented by: [id number] Admin: 05/01/21 09:48 Dose: 1 mls/min Documented by: [id number] Admin: 04/30/21 08:38 Dose: 1 mls/min Documented by: [id number] Remdesivir 100 mg/ Sodium (Chloride) 250 mls @ 250 mls/hr IV Q24H [facility]; Protocol Stop: 05/04/21 12:59 Last Infusion: 05/03/21 14:03 Dose: 0 mls/hr Documented by: [id number] Admin: 05/03/21 12:54 Dose: 250 mls/hr Documented by: [id number] Infusion: 05/02/21 14:09 Dose: 0 mls/hr Documented by: [id number] Admin: 05/02/21 12:50 Dose: 250 mls/hr Documented by: [id number] Infusion: 05/01/21 21:45 Dose: 0 mls/hr Documented by: [id number] Admin: 05/01/21 18:12 Dose: 250 mls/hr Documented by: [id number] Insulin Aspart (Insulin Aspart Per Unit) 0 units SC ACHS [facility] Stop: 05/30/21 16:29 Last Admin: 05/04/21 09:24 Dose: 7 units Documented by: [id number] Cosigned by: [id number] Admin: 05/03/21 21:39 Dose: Not Given Documented by: [id number] Admin: 05/03/21 17:49 Dose: 8 units Documented by: [id number] Cosigned by: [id number] Admin: 05/03/21 12:46 Dose: 11 units Documented by: [id number] Cosigned by: [id number] Admin: 05/03/21 08:48 Dose: 11 units Documented by: [id number] Cosigned by: [id number] Admin: 05/02/21 20:32 Dose: 1 units Documented by: [id number] Cosigned by: [id number] Admin: 05/02/21 17:43 Dose: 13 units Documented by: [id number] Cosigned by: [id number] Admin: 05/02/21 13:02 Dose: 7 units Documented by: [id number] Cosigned by: [id number] Admin: 05/02/21 09:11 Dose: 10 units Documented by: [id number] Cosigned by: [id number] Admin: 05/01/21 21:31 Dose: Not Given Documented by: [id number] Cosigned by: [id number] Admin: 05/01/21 18:57 Dose: Not Given Documented by: [id number] Cosigned by: [id number] Admin: 05/01/21 18:57 Dose: Not Given Documented by: [id number] Cosigned by: [id number] Admin: 05/01/21 07:38 Dose: Not Given Documented by: [id number] Admin: 04/30/21 21:07 Dose: Not Given Documented by: [id number] Admin: 04/30/21 18:55 Dose: 3 units Documented by: [id number] Cosigned by: [id number] Insulin Human NPH (Insulin Human Nph) 25 units SC DAILY [facility] Stop: 06/01/21 08:59 Last Admin: 05/04/21 09:25 Dose: 25 units Documented by: [id number] Cosigned by: [id number] Admin: 05/03/21 08:48 Dose: 25 units Documented by: [id number] Cosigned by: [id number] Admin: 05/02/21 09:12 Dose: 25 units Documented by: [id number] Cosigned by: [id number] Sodium Chloride (Sodium Chloride 0.9% 10ml Flush) 30 ml IV Q24H [facility] Stop: 05/04/21 14:01 Last Admin: 05/03/21 12:55 Dose: 30 ml Documented by: [id number] Admin: 05/02/21 13:11 Dose: 30 ml Documented by: [id number] Admin: 05/01/21 21:45 Dose: 30 ml Documented by: [id number] Vitamin B Complex (Vitamin B Complex Tab) 1 tab PO DAILY [facility] Stop: 05/30/21 08:59 Last Admin: 05/04/21 09:12 Dose: 1 tab Documented by: [id number] Admin: 05/03/21 08:14 Dose: 1 tab Documented by: [id number] Admin: 05/02/21 08:54 Dose: 1 tab Documented by: [id number] Admin: 05/01/21 15:12 Dose: 1 tab Documented by: [id number] Admin: 04/30/21 08:41 Dose: 1 tab Documented by: [id number] Vitamin D (Cholecalciferol 1,000 Units 25 Mcg Tab) 1,000 units PO DAILY [facility] Stop: 05/30/21 08:59 Last Admin: 05/04/21 09:12 Dose: 1,000 units Documented by: [id number] Admin: 05/03/21 08:14 Dose: 1,000 units Documented by: [id number] Admin: 05/02/21 08:54 Dose: 1,000 units Documented by: [id number] Admin: 05/01/21 15:12 Dose: 1,000 units Documented by: [id number] Admin: 04/30/21 08:37 Dose: 1,000 units Documented by: [id number] Zinc Sulfate (Zinc Sulfate 220 Mg Capsule) 220 mg PO QAM [facility] Stop: 05/30/21 08:59 Last Admin: 05/04/21 09:12 Dose: 220 mg Documented by: [id number] Admin: 05/03/21 08:17 Dose: 220 mg Documented by: [id number] Admin: 05/02/21 08:54 Dose: 220 mg Documented by: [id number] Admin: 05/01/21 15:12 Dose: 220 mg Documented by: [id number] Admin: 04/30/21 08:41 Dose: 220 mg Documented by: [id number] Discontinued Medications Albuterol (Albut/Ipratrop 3mg/0.5mg Neb 3 Ml Vial) 3 ml INH NOW STA Stop: 04/30/21 01:29 Last Admin: 04/30/21 02:01 Dose: 3 ml Documented by: [id number] Albuterol (Albut/Ipratrop 3mg/0.5mg Neb 3 Ml Vial) 3 ml NEB QIDR [facility] Stop: 05/30/21 06:59 Last Admin: 05/03/21 11:29 Dose: Not Given Documented by: [id number] Admin: 05/03/21 07:13 Dose: 3 ml Documented by: [id number] Admin: 05/02/21 20:05 Dose: 3 ml Documented by: [id number] Admin: 05/02/21 15:12 Dose: 3 ml Documented by: [id number] Admin: 05/02/21 11:55 Dose: 3 ml Documented by: [id number] Admin: 05/02/21 07:19 Dose: 3 ml Documented by: [id number] Admin: 05/01/21 19:28 Dose: 3 ml Documented by: [id number] Admin: 05/01/21 14:42 Dose: 3 ml Documented by: [id number] Admin: 05/01/21 11:20 Dose: 3 ml Documented by: [id number] Admin: 05/01/21 06:26 Dose: 3 ml Documented by: [id number] Admin: 04/30/21 19:32 Dose: 3 ml Documented by: [id number] Admin: 04/30/21 15:51 Dose: 3 ml Documented by: [id number] Admin: 04/30/21 11:12 Dose: 3 ml Documented by: [id number] Admin: 04/30/21 07:27 Dose: 3 ml Documented by: [id number] Baricitinib (Baricitinib Communication) 1 ea N/A ONE ONE Stop: 04/30/21 09:57 Last Admin: 04/30/21 13:19 Dose: Not Given Documented by: [id number] Dexamethasone Sodium Phosphate (DexamethasonePf 10 Mg/Ml Vial) 6 mg IV NOW ONE Stop: 04/30/21 01:29 Last Admin: 04/30/21 02:01 Dose: 10 mg Documented by: [id number] Furosemide (Furosemide 20 Mg Tab) 20 mg PO NOW ONE Stop: 05/03/21 14:19 Last Admin: 05/03/21 15:56 Dose: 20 mg Documented by: [id number] Furosemide (Furosemide 20 Mg Tab) 20 mg PO 0900 ONE Stop: 05/04/21 09:01 Last Admin: 05/04/21 09:38 Dose: 20 mg Documented by: [id number] Sodium Chloride (Nss 1000ml) 1,000 mls @ 999 mls/hr IV .Q1H1M ONE Stop: 04/30/21 03:26 Last Infusion: 04/30/21 04:06 Dose: 0 mls/hr Documented by: [id number] Admin: 04/30/21 02:50 Dose: 999 mls/hr Documented by: [id number] Remdesivir 200 mg/ Sodium (Chloride) 250 mls @ 125 mls/hr IV ONE [facility]; Protocol Stop: 04/30/21 05:14 Last Infusion: 04/30/21 06:02 Dose: 0 mls/hr Documented by: [id number] Admin: 04/30/21 03:50 Dose: 125 mls/hr Documented by: [id number] Azithromycin 500 mg/ Dextrose 255 mls @ 125 mls/hr IV DAILY [facility] Stop: 05/07/21 08:59 Last Infusion: 05/01/21 12:24 Dose: 0 mls/hr Documented by: [id number] Admin: 05/01/21 09:52 Dose: 125 mls/hr Documented by: [id number] Infusion: 04/30/21 10:59 Dose: 0 mls/hr Documented by: [id number] Admin: 04/30/21 08:42 Dose: 125 mls/hr Documented by: [id number] Insulin Human Regular 250 (units/ Sodium Chloride) 250 mls @ 0 mls/hr IV .Q0M [facility]; Protocol Stop: 05/30/21 14:44 Last Admin: 05/02/21 07:47 Dose: Not Given Documented by: [id number] Titration: 05/02/21 07:46 Dose: 0 units/hr, 0 mls/hr Documented by: [id number] Cosigned by: [id number] Titration: 05/02/21 04:58 Dose: 0 units/hr, 0 mls/hr Documented by: [id number] Cosigned by: [id number] Titration: 05/02/21 03:49 Dose: 2.4 units/hr, 2.4 mls/hr Documented by: [id number] Cosigned by: [id number] Titration: 05/02/21 01:34 Dose: 3 units/hr, 3 mls/hr Documented by: [id number] Cosigned by: [id number] Titration: 05/01/21 22:54 Dose: 3 units/hr, 3 mls/hr Documented by: [id number] Cosigned by: [id number] Titration: 05/01/21 20:35 Dose: 3 units/hr, 3 mls/hr Documented by: [id number] Cosigned by: [id number] Titration: 05/01/21 19:26 Dose: 3 units/hr, 3 mls/hr Documented by: [id number] Cosigned by: [id number] Titration: 05/01/21 18:30 Dose: 3.7 units/hr, 3.7 mls/hr Documented by: [id number] Cosigned by: [id number] Titration: 05/01/21 15:24 Dose: 4.6 units/hr, 4.6 mls/hr Documented by: [id number] Cosigned by: [id number] Titration: 05/01/21 04:20 Dose: 3.8 units/hr, 3.8 mls/hr Documented by: [id number] Cosigned by: [id number] Titration: 05/01/21 01:06 Dose: 4.8 units/hr, 4.8 mls/hr Documented by: [id number] Cosigned by: [id number] Titration: 04/30/21 19:04 Dose: 6 units/hr, 6 mls/hr Documented by: [id number] Cosigned by: [id number] Titration: 04/30/21 16:39 Dose: 8 units/hr, 8 mls/hr Documented by: [id number] Cosigned by: [id number] Admin: 04/30/21 15:30 Dose: 10 units/hr, 10 mls/hr Documented by: [id number] Cosigned by: [id number] Insulin Human Regular 10 units (/ Syringe) 10 mls @ 10 mls/min IV 1445 ONE Stop: 04/30/21 14:46 Last Admin: 04/30/21 15:30 Dose: 10 mls/min Documented by: [id number] Cosigned by: [id number] Insulin Aspart (Insulin Aspart Per Unit) 0 units SC ACHS [facility] Stop: 05/30/21 07:29 Last Admin: 04/30/21 14:01 Dose: 12 units Documented by: [id number] Cosigned by: [id number] Admin: 04/30/21 10:42 Dose: 10 units Documented by: [id number] Cosigned by: [id number] Insulin Glargine (Insulin Glargine Solostar 100 Units/Ml 3 Ml Pen) 10 units SC HS [facility] Stop: 05/30/21 20:59 Last Admin: 05/01/21 22:06 Dose: 10 units Documented by: [id number] Cosigned by: [id number] Admin: 04/30/21 21:25 Dose: 10 units Documented by: [id number] Cosigned by: [id number] Insulin Human Regular (Novolin-R Insulin Per Unit Charge) 10 units IV NOW STA Stop: 04/30/21 02:27 Last Admin: 04/30/21 03:15 Dose: 10 units Documented by: [id number] Cosigned by: [id number] Ioversol (Optiray 320 125ml) 120 ml IV ONCE ONE Stop: 04/30/21 03:44 Last Admin: 04/30/21 03:44 Dose: 120 ml Documented by: [id number] Miscellaneous (Dka Goal Range 150-250 Mg/Dl) 1 ea N/A ONE ONE Stop: 04/30/21 14:10 Last Admin: 04/30/21 15:30 Dose: 1 ea Documented by: [id number] Miscellaneous Information (Dc All Previously Ordered Diabetes Meds) 1 ea N/A ONE ONE Stop: 04/30/21 14:10 Last Admin: 04/30/21 15:30 Dose: 1 ea Documented by: [id number] Potassium Chloride (Potassium Chloride 10 Meq Tabcr) 10 meq PO NOW ST[facility] Stop: 05/03/21 14:19 Last Admin: 05/03/21 15:56 Dose: 10 meq Documented by: [id number] Potassium Chloride (Potassium Chloride 10 Meq Tabcr) 10 meq PO NOW ST[facility] Stop: 05/04/21 08:56 Last Admin: 05/04/21 09:11 Dose: 10 meq Documented by: [id number] Sodium Chloride (Sodium Chloride 0.9% 10ml Flush) 30 ml IV Q24H [facility] Stop: 04/30/21 06:34 Last Admin: 04/30/21 13:19 Dose: Not Given Documented by: [id number] Imaging Data Radiologist's Impression: Chest X-Ray 04/30/21 01:28 XR chest 1V portable CLINICAL HISTORY: Dyspnea TECHNIQUE: Single frontal radiograph of the chest was obtained. Comparison: Comparison is made to chest one view 08/02/2016 FINDINGS: No lines and tubes are seen. The cardiomediastinal silhouette is normal. Lungs are underinflated. Multifocal airspace opacities are seen. No evidence of pleural effusion or pneumothorax. IMPRESSION: Multifocal airspace opacities may represent atelectasis, pneumonia, and/or aspiration. ACT 112: Negative or not required by law. Electronically signed by: Robinson Henderson M.D. 04/30/2021 9:09 AM Chest CTA 04/30/21 02:38 CT angio chest PE protocol CLINICAL HISTORY: Chest pain and shortness of breath. Covid positive. Evaluate for pulmonary embolus. COMPARISON STUDY: Portable chest from 04/30/2021 CT DOSE: 806.87 mGy.cm TECHNIQUE: CT Angio of the chest was performed.followed by image post processing with coronal, and sagittal MIP reformats. Contrast Volume: Optiray 320, 120 ml FINDINGS: Vasculature: There is homogeneous perfusion of the pulmonary vasculature bilate rally. No intraluminal filling defects or evidence for pulmonary embolus is seen. Airway: The airway is clear. No endobronchial lesion is identified. Lungs: Extensive groundglass opacities are present throughout both lungs characteristic of a viral type pneumonitis and Covid 19 pneumonia. The lungs are otherwise clear of confluent alveolar opacities, air bronchograms or pulmonary nodules. Pleura: There is no evidence for pleural effusion. There is no evidence for pneumothorax. Mediastinum: There is no evidence for pathologic adenopathy. The heart size is within normal limits. The thoracic aorta is within normal limits. There is no evidence for pericardial effusion. Upper abdomen:The adrenal glands are normal bilaterally. There is a small hiatal hernia. There is evidence for fatty infiltration of the liver. Osseous structures: There is no acute osseous pathology. Impression: 1. No CTA evidence for pulmonary embolus. 2. Extensive groundglass opacities are present throughout both lungs characteristic of a viral type pneumonitis and Covid 19 pneumonia. 3. Small hiatal hernia and fatty infiltration of the liver. ACT 112: Negative or not required by law. Electronically signed by: Renan Hamilton M.D. 04/30/2021 9:16 AM Blood Pressure Blood Pressure Findings: Normal blood pressure Blood Pressure Disposition: did not require urgent referral Discharge Plan Visit Data Chief Complaint: Shortness of Breath/Dyspnea Stated Complaint: SOB ED Provider: Rhoda Wyatt Discharge Problem: Pneumonia due to 2019-nCoV, Hypoxia, Acute hyperglycemia Patient Disposition: Admitted As Inpatient Discharge Instructions Interventions: ED Discharge Assessment Last Done: 04/30/21 09:27
[2021-04-30] MEDS ORDERED: REMDESIVIR 200 MG in SODIUM CHLORIDE 0.9% 210 ML IV STA (03:15)
--- NOTE | 2021-04-30 03:16 | History & Physical Report ---
Date of Service April 30, 2021 Assessment & Plan (1) Pneumonia due to 2019-nCoV: Plan: COVID-19 pneumonia/acute respiratory failure with hypoxia- Dexamethasone 6 mg IV every morning Remdesivir IV per protocol Duonebs every 4 hours while awake and every 2 hours when necessary. Guaifenesin extended release 1200 mg p.o. twice daily Vitamin D 1000 international units p.o. daily Zinc sulfate 200 mg p.o. daily Azithromycin 500 mg IV daily Oxygen, titrate to keep pulse ox around 92% CT angiography PE protocol ordered and pending (2) Hypoxia: Plan: See above (3) Acute respiratory failure with hypoxia: Plan: See above (4) Acute hyperglycemia: Plan: Glucose 332 upon admission Diabetes mellitus is a new diagnosis for him Father has a history of diabetes mellitus Status post 10 units of regular insulin IV in the ED. We need to put on long-acting insulin to help control blood glucose which will have intensive to significantly elevate while on dexamethasone (5) Essential hypertriglyceridemia: Plan: Follow in the outpatient setting (6) History of thymoma: Plan: Followed in the outpatient setting (7) Fatty liver: Plan: AST 60, ALT 111, total bilirubin 1.4 Follow serially History of Present Illness Chief Complaint: The patient presents to the emergency department with 1 week of worsening shortness of breath, dyspnea exertion, cough and generalized fatigue Primary Care Provider: Janny Cool MD The patient is a 51-year-old male with a past medical history including essential hypertriglyceridemia, fatty liver, anxiety, thymoma, hypertension, and obesity. He reports that his is at home with COVID-19 infection, and he presents with symptoms as above concerning for the same. Pulse ox upon arrival 71% on room air Chest x-ray consistent with multifocal pneumonia Significant laboratories: WBC 11.96, hemoglobin 16.3, hematocrit 46.7, platelets 148, glucose 332, AST 60, ALT 111, total bilirubin 1.4. COVID-19 testing was positive. Influenza A & B are negative, and RSV is negative. Allergies Allergy/AdvReac Type Severity Reaction Status Date / Time No Known Drug Allergies Allergy Mild . Verified 04/30/21 02:37 Home Medications Medication Instructions Recorded Confirmed Type ascorbic acid (vitamin C) 500 mg 0 mg PO DAILY 04/30/21 04/30/21 History tablet (Vitamin C) cholecalciferol (vitamin D3) 25 0 mcg PO DAILY 04/30/21 04/30/21 History mcg (1,000 unit) tablet (Vitamin D3) ivermectin 3 mg tablet 12 mg PO .TODAY 04/30/21 04/30/21 History vitamin B complex 1 tab PO DAILY 04/30/21 04/30/21 History Past Med/Surg History Medical History (Updated 04/30/21 @ 04:19 by Jordy Wright MD) Thymoma, benign Surgical History History of hernia repair S/P tonsillectomy S/P wisdom tooth extraction Family History Grandfather (Maternal) Myocardial infarction Grandfather (Paternal) Myocardial infarction Father AML (acute myeloblastic leukemia) Denies family history of Ovarian cancer Prostate cancer Breast cancer Colorectal cancer Social History Smoking Status: Never smoker Hx Alcohol Use: No Hx Substance Use: No Preferred Language: Kazakh marital status: current occupational status: employed current occupation: [employer] Feels Safe at Home: Yes Childhood Exposure to Second-Hand Smoke: Yes Dental Care, Regularly: Yes Physical Activity Frequency: 5-6 Times per Week Seatbelt Use: always Sunscreen Use: Yes Review of Systems Review of Systems: The patient denies chest pain, palpitations, lower extremity swelling, sore throat, fevers, chills, sweats, nausea, vomiting, diarrhea , constipation, abdominal pain, pelvic pain, blood in urine or stool, dysuria, urinary frequency or urgency, lightheadedness, dizziness, headache, memory loss, loss of consciousness, rash, abnormal bruising or bleeding, imbalance, focal weakness, numbness or tingling in arms or legs, generalized arthralgias or myalgias, back or neck pain, or night sweats. The review of systems is otherwise negative other than for that already noted above, and at least 10 systems have been reviewed. Physical Exam Physical Exam: The patient is awake, alert and oriented 3, well developed and well nourished, normocephalic and atraumatic, sitting upright in bed, and in mild to moderate respiratory distress. HEENT--PERRL, EOMI, mucous membranes and oropharynx dry. Neck--supple. No JVD. No bruits. Thyroid normal, trachea midline, no adenopathy. Heart--normal S1 and S2. No murmurs, rubs or gallops. Lungs--coarse breath sounds bilaterally. Mild to moderate respiratory distress, no accessory muscle use. Abdomen--normal bowel sounds and soft. Nontender. Nondistended, morbidly obese Extremities--no cyanosis or clubbing. No edema. Dermatologic--normal skin turgor, normal color, no abnormal lymph nodes, no rash. Neurologic--cranial nerves II through XII grossly intact. Rheumatologic--normal range of motion. Psychiatric--normal affect. Results & Data Results & Data ([facility]) Vital Signs (Past 12 Hours) Vital Signs Temp Pulse Pulse Resp BP BP Pulse Ox 04/30/21 01:18 36.5 C 122 H 20 155/94 H 71 L 04/30/21 01:13 110 H 38 H 119/87 90 Laboratory Results Laboratory Results WBC 11.96 K/uL (4.8-10.8) H 04/30/21 01:39 RBC 5.29 M/uL (4.7-6.1) 04/30/21 01:39 Hgb 16.3 g/dL (14.0-18.0) 04/30/21 01:39 Hct 46.7 % (42-52) 04/30/21 01:39 MCV 88.3 fL (80-100) 04/30/21 01:39 MCH 30.8 pg (25-34) 04/30/21 01:39 MCHC 34.9 g/dL (32-36) 04/30/21 01:39 RDW Std Deviation 42.2 fL (36.4-46.3) 04/30/21 01:39 RDW Coeff of Wan 13.0 % (11.5-14.5) 04/30/21 01:39 Plt Count 148 K/uL (130-400) 04/30/21 01:39 MPV 11.6 fL (7.4-10.4) H 04/30/21 01:39 Immature Gran % (Auto) 0.4 % 04/30/21 01:39 Neut % (Auto) 90.2 % 04/30/21 01:39 Lymph % (Auto) 4.3 % 04/30/21 01:39 [place] % (Auto) 4.8 % 04/30/21 01:39 Eos % (Auto) 0.1 % 04/30/21 01:39 Baso % (Auto) 0.2 % 04/30/21 01:39 Neut # (Auto) 10.79 K/uL (1.4-6.5) H 04/30/21 01:39 Lymph # (Auto) 0.51 K/uL (1.2-3.4) L 04/30/21 01:39 [place] # (Auto) 0.58 K/uL (0.11-0.59) 04/30/21 01:39 Eos # (Auto) 0.01 K/uL (0-0.5) 04/30/21 01:39 Baso # (Auto) 0.02 K/uL (0-0.2) 04/30/21 01:39 Immature Gran # (Auto) 0.05 K/uL (0.00-0.02) H 04/30/21 01:39 Sodium 135 mmol/L (136-145) L 04/30/21 01:39 Potassium 3.9 mmol/L (3.5-5.1) 04/30/21 01:39 Chloride 101 mmol/L (98-107) 04/30/21 01:39 Carbon Dioxide 23 mmol/L (21-32) 04/30/21 01:39 Anion Gap 11.0 (3-11) 04/30/21 01:39 BUN 16 mg/dl (7-18) 04/30/21 01:39 Creatinine 0.96 mg/dl (0.6-1.4) 04/30/21 01:39 Est Cr Clr Drug Dosing 101.7 ml/min 04/30/21 01:39 Est GFR ( Amer) 104.9 ml/min 04/30/21 01:39 Est GFR (Non-Af Amer) 90.5 ml/min 04/30/21 01:39 BUN/Creatinine Ratio 16.2 (10-20) 04/30/21 01:39 Glucose 332 mg/dl (70-99) H* 04/30/21 01:39 Calcium 9.6 mg/dl (8.5-10.1) 04/30/21 01:39 Total Bilirubin 1.4 mg/dl (0.2-1) H 04/30/21 01:39 AST 60 U/L (15-37) H 04/30/21 01:39 ALT 114 (12-78) H 04/30/21 01:39 Alkaline Phosphatase 83 U/L (45-117) 04/30/21 01:39 Troponin I < 0.015 ng/ml (0-0.045) 04/30/21 01:39 Total Protein 7.8 gm/dl (6.4-8.2) 04/30/21 01:39 Albumin 3.6 gm/dl (3.4-5.0) 04/30/21 01:39 Globulin 4.2 gm/dl (2.5-4.0) H 04/30/21 01:39 Albumin/Globulin Ratio 0.9 (0.9-2) 04/30/21 01:39 Beta-Hydroxybutyric Acd 26.07 mg/dl (0.2-2.81) H 04/30/21 01:39 SARS-CoV-2 (PCR) POSITIVE (Negative) A* 04/30/21 01:41 Influenza Type A (PCR) Negative (Neg) 04/30/21 01:41 Influenza Type B (PCR) Negative (Neg) 04/30/21 01:41 RSV (RT-PCR) Negative (Neg) 04/30/21 01:41 Code Status & VTE Plan Code Status Full code PG Care Time/CCT Total # of Minutes Spent Total Time Spent with Patient: Total time spent is greater than 50% in coordination of care (as documented) at patient's floor/unit and/or counseling patient: Coding Level of Care Code 51435 Initial Inpt Care Lvl 3 Diagnoses Pneumonia due to 2019-nCoV U07.1; J12.82 Hypoxia R09.02 Acute respiratory failure with hypoxia J96.01 Acute hyperglycemia R73.9 Essential hypertriglyceridemia E78.1 History of thymoma Z86.018 Fatty liver K76.0
[2021-04-30] MEDS ORDERED: OPTIRAY 320 125ml IV ONE (03:43)
[2021-04-30] MEDS ORDERED: GLUCOSE 10 TABS/TUBE PO PRN (06:33)
[2021-04-30] MEDS ORDERED: ONDANSETRON INJ 2 MG/ML 2 ML VIAL IV PRN (06:33)
[2021-04-30] MEDS ORDERED: CARBOHYDRATES FOR HYPOGLYCEMIA PO PRN (06:33)
[2021-04-30] MEDS ORDERED: SODIUM CHLORIDE 0.9% 10ML FLUSH IV SCH (06:33)
[2021-04-30] MEDS ORDERED: DEXTROSE 50% 50 ML SYRINGE IV PRN (06:33)
[2021-04-30] MEDS ORDERED: GLUCAGON FOR INJ 1 MG VIAL SQ PRN (06:33)
[2021-04-30] MEDS ORDERED: GLUCOSE 40% GEL 15 GM TUBE PO PRN (06:33)
[2021-04-30 06:43] LABS: Appearance Urine Clear (Clear); Bacteria Urine Automated Negative (Negative); Bilirubin Urine Negative (Negative); Blood Urine Negative (Negative); Color Urine Yellow; Glucose Urine UA 3+ (Negative); Ketones Urine 4+ (Negative); Leukocyte Esterase Urine Negative (Negative); Nitrite Urine Negative (Negative); Protein Urine 1+ (Negative); RBC Urine Automated 0-4 /hpf (0-4); Specific Gravity Urine > 1.045 (1.000-1.030); Urobilinogen Urine Negative (Negative)
[2021-04-30] MEDS: ALBUT/IPRATROP 3MG/0.5MG NEB 3 ML VIAL NEB SCH ×4 (07:27→19:32)
[2021-04-30] MEDS: ENOXAPARIN INJ 60 MG/0.6 ML SYR SQ SCH ×2 (08:33→21:05)
[2021-04-30] MEDS: ASCORBIC ACID 500 MG TAB PO SCH (08:36)
[2021-04-30] MEDS: CHOLECALCIFEROL 1,000 UNITS 25 MCG TAB PO SCH (08:37)
[2021-04-30] MEDS: dexAMETHasone 6 MG in SYRINGE 0 ML IV SCH (08:38)
[2021-04-30] MEDS: guaiFENesin 600 MG TABCR PO SCH ×2 (08:40→21:06)
[2021-04-30] MEDS: VITAMIN B COMPLEX TAB PO SCH (08:41)
[2021-04-30] MEDS: ZINC SULFATE 220 MG CAPSULE PO SCH (08:41)
[2021-04-30] MEDS: AZITHROMYCIN 500 MG in DEXTROSE 5% 250 ML IV SCH (08:42)
[2021-04-30] MEDS: FAMOTIDINE 20 MG TAB PO SCH ×2 (08:44→21:06)
--- NOTE | 2021-04-30 09:10 | XRay Report ---
XR chest 1V portable CLINICAL HISTORY: Dyspnea TECHNIQUE: Single frontal radiograph of the chest was obtained. Comparison: Comparison is made to chest one view 08/02/2016 FINDINGS: No lines and tubes are seen. The cardiomediastinal silhouette is normal. Lungs are underinflated. Mul tifocal airspace opacities are seen. No evidence of pleural effusion or pneumothorax. IMPRESSION: Multifocal airspace opacities may represent atelectasis, pneumonia, and/or aspiration. ACT 112: Negative or not required by law. Electronically signed by: Robinson Henderson M.D. 04/30/2021 9:09 AM
--- NOTE | 2021-04-30 09:18 | CT Scan Report ---
CT angio chest PE protocol CLINICAL HISTORY: Chest pain and shortness of breath. Covid positive. Evaluate for pulmonary embolus. COMPARISON STUDY: Portable chest from 04/30/2021 CT DOSE: 806.87 mGy.cm TECHNIQUE: CT Angio of the chest was performed.followed by image post processing with coronal, and s agittal MIP reformats. Contrast Volume: Optiray 320, 120 ml FINDINGS: Vasculature: There is homogeneous perfusion of the pulmonary vasculature bilaterally. No intraluminal filling defects or evidence for pulmonary embolus is seen. Airway: The airway is clear. No endobronchial lesion is identified. Lungs: Extensive groundglass opacities are present throughout both lungs characteristic of a viral ty pe pneumonitis and Covid 19 pneumonia. The lungs are otherwise clear of confluent alveolar opacities, air bronchograms or pulmonary nodules. Pleura: There is no evidence for pleural effusion. There is no evidence for pneumothorax. Mediastinum: There is no evidence for pathologic adenopathy. The heart size is within normal limits. The thoracic aorta is within normal limits. There is no evidence for pericardial effusion. Upper abdomen:The adrenal glands are normal bilaterally. There is a small hiatal hernia. There is jerrica dence for fatty infiltration of the liver. Osseous structures: There is no acute osseous pathology. Impression: 1. No CTA evidence for pulmonary embolus. 2. Extensive groundglass opacities are present throughout both lungs characteristic of a viral type p neumonitis and Covid 19 pneumonia. 3. Small hiatal hernia and fatty infiltration of the liver. ACT 112: Negative or not required by law. Electronically signed by: Renan Hamilton M.D. 04/30/2021 9:16 AM
[2021-04-30] MEDS ORDERED: BARICITINIB COMMUNICATION ONE (09:56)
--- NOTE | 2021-04-30 09:59 | Communication Note ---
Date of Service: April 30, 2021 Saw patient in the ER - room A3 - earlier this am. Patient was mildly tachypneic on maxed out HFNC. Satting low 90s on 100% FiO2. He was able to speak in full sentences but endorsed dyspnea with minimal exertion. We discussed that he was a candidate for Baricitinib therapy (severe FiO2 requirement, markedly elevated CRP, etc). EUA sheet discussing Baricitinib given to patient. He verbally consented for starting the medication. I encouraged him to prone as much as possible, use flutter, etc. Exam - gen - mild tachypnea, looks tired and sick neck - no JVD mouth - MM dry heart - tachy, RR, s1 s2, no murmur lungs - bibasilar rales, no wheeze, tachypnea abd - soft NT no HSM ext - no edema, pulses 2+ b/l A/P: Severe acute hypoxic resp failure 2nd to severe COVID-19 pneumonia with early ARDS. New-onset T2DM - uncontrolled. Steroids/baricitinib/remdesivir/self-proning/etc. Start insulin infusion for glycemic control; consult pharmacy for their assistance. Will update pt's . Pt's status is very tenuous and he is at high risk of intubation. He does endorse snoring so BIPAP at night would be beneficial. Denzel Pizarro MD
[2021-04-30] MEDS: INSULIN ASPART PER UNIT SC SCH ×4 (10:42→21:07)
[2021-04-30] MEDS: 4mg Daily x 14 days (eGFR >60 mL/min/1.73m2) PO SCH (10:47)
[2021-04-30] MEDS ORDERED: PHARMACY GLYCEMIC MGMT CONSULT PRN (14:09)
[2021-04-30] MEDS ORDERED: DC ALL PREVIOUSLY ORDERED DIABETES MEDS ONE (14:09)
[2021-04-30] MEDS ORDERED: DKA GOAL RANGE 150-250 mg/dl ONE (14:09)
[2021-04-30] MEDS ORDERED: STAT IV Infusion **Titration per Protocol STA ×2 (14:09)
[2021-04-30] MEDS ORDERED: INSULIN HUMAN REGULAR IV BOLUS 10 UNITS in SYRINGE 0 ML IV ONE (14:45)
[2021-04-30] MEDS: INSULIN REGULAR 250 UNITS in SODIUM CHLORIDE 0.9% 247.5 ML IV SCH (15:30)
[2021-04-30 20:47] LABS: Base Excess VBG 1.1 mEq/L; Oxygen Saturation VBG 75.6 %; pH VBG 7.46 (7.36-7.41)
[2021-04-30] MEDS: INSULIN GLARGINE SOLOSTAR 100 UNITS/ML 3 ML PEN SC SCH (21:25)
--- NOTE | 2021-04-30 21:50 | Electrocardiogram Report ---
Test Reason : Blood Pressure : / mmHG Vent. Rate : 106 BPM Atrial Rate : 106 BPM P-R Int : 142 ms QRS Dur : 082 ms QT Int : 344 ms P-R-T Axes : 025 009 006 degrees QTc Int : 456 ms Sinus tachycardia Possible Left atrial enlargement Borderline ECG No previous ECGs available Confirmed by Omar Richardson ([id number]) on 04/30/2021 9:49:48 PM Referred By: REFERRED SELF Confirmed By:Omar Richardson
[2021-05-01 06:15] LABS: Basophils # (auto) 0.02 K/uL (0-0.2); Basophils % (auto) 0.1 %; Eosinophils # (auto) 0.01 K/uL (0-0.5); Eosinophils % (auto) 0.1 %; Hematocrit (blood only) 43.8 % (42-52); Hemoglobin 14.9 g/dL (14.0-18.0); Immature Granulocytes # (auto) 0.19 K/uL (0.00-0.02); Immature Granulocytes % (auto) 1.1 %; Lymphocytes # (auto) 1.19 K/uL (1.2-3.4); Lymphocytes % (auto) 6.9 %; Mean Corpuscular Hemoglobin 29.7 pg (25-34); Mean Corpuscular Volume 87.3 fL (80-100); Mean Platelet Volume 11.9 fL (7.4-10.4); Monocytes # (auto) 0.87 K/uL (0.11-0.59); Neutrophils # (auto) 15.04 K/uL (1.4-6.5); Neutrophils % (auto) 86.8 %; Platelet Count 194 K/uL (130-400); RDW Coefficient of Variation 13.2 % (11.5-14.5); RDW Standard Deviation 42.2 fL (36.4-46.3); Red Blood Count 5.02 M/uL (4.7-6.1); White Blood Count 17.32 K/uL (4.8-10.8)
[2021-05-01] MEDS: ALBUT/IPRATROP 3MG/0.5MG NEB 3 ML VIAL NEB SCH ×4 (06:26→19:28)
[2021-05-01 06:43] LABS: Albumin Level 2.8 gm/dl (3.4-5.0); BUN Creatinine Ratio 33.6 (10-20); Calcium 8.8 mg/dl (8.5-10.1); Creatinine Clr Calc Pharmacy 135.6 ml/min; Est GFR (African American) 124.3 ml/min; Est GFR (Non-African American) 107.3 ml/min; Potassium 3.8 mmol/L (3.5-5.1)
[2021-05-01 06:47] LABS: Albumin Globulin Ratio 0.7 (0.9-2); Bilirubin,Total 0.7 mg/dl (0.2-1); C Reactive Protein 13.3 mg/dl (0-0.29); Globulin 3.8 gm/dl (2.5-4.0); Magnesium 2.5 mg/dl (1.8-2.4); Total Protein 6.6 gm/dl (6.4-8.2)
[2021-05-01] MEDS: INSULIN ASPART PER UNIT SC SCH ×3 (07:38→21:31)
[2021-05-01 07:44] LABS: Estimated Average Glucose 203 mg/dl; Hemoglobin A1C 8.7 % (4.5-5.6)
--- NOTE | 2021-05-01 09:03 | Pharmacy Report ---
Pharmacy Glycemic Short Note 2 - Date of Service May 01, 2021 - Glycemic Short BSG Results (Last 24 hours): 04/30/21 04/30/21 04/30/21 12:27 15:10 16:37 Glucose POC Glucose 352 H* 305 H* 220 H 04/30/21 04/30/21 04/30/21 17:39 18:49 19:59 Glucose POC Glucose 195 H 149 H 141 H 04/30/21 04/30/21 05/01/21 20:59 22:50 01:00 Glucose POC Glucose 148 H 128 H 92 05/01/21 05/01/21 05/01/21 02:03 03:06 04:03 Glucose POC Glucose 96 103 H 98 05/01/21 05/01/21 05/01/21 05:12 05:48 06:17 Glucose 110 H POC Glucose 102 H 104 H 05/01/21 05/01/21 07:26 08:20 Glucose POC Glucose 119 H 127 H OUTPATIENT ANTIDIABETIC REGIMEN: * N/A * A1c = 8.7% 05/01/21 ASSESSMENT: * Patient admitted for COVID19 viral pneumonia * Severely hyperglycemic on admission, but no prior dx of DM. A1c consistent with DM. Hyperglycemic but not DKA/HHS. * IV insulin infusion started due to addition of IV steroids while already hyperglycemic. Low dose basal insulin also started in attempts to make future transition to SQ regimen easier. * Insulin infusion continues this AM, running steadily at 3.8units/hr with BSGs in goal range. Discussed pt's respiratory and nutritional status w/ RN this AM. Pt quickly desaturates when off BiPAP and likely will not be able to eat much if any today. Will refrain from adding NPH insulin due to uncertain PO intake. Will wait to see response to IV dexamethasone while NPO this AM to determine if NPH would still be appropriate moving forward. Insulin drip remains most appropriate therapy this AM, however may be able to begin transition to SQ later today once more data collected. PLAN FOR INPATIENT GLYCEMIC CONTROL: * Basal insulin * Lantus 10 units Q HS while on insulin drip. May add NPH if BSGs rise today following IV dexamethasone. * Bolus insulin * Nutritional / Prandial insulin per carb ratio of 1 unit per 5 grams CHO consumed PLAN FOR DISCHARGE: * to be determined
[2021-05-01] MEDS: ENOXAPARIN INJ 60 MG/0.6 ML SYR SQ SCH ×2 (09:47→20:27)
[2021-05-01] MEDS: dexAMETHasone 6 MG in SYRINGE 0 ML IV SCH (09:48)
[2021-05-01] MEDS: AZITHROMYCIN 500 MG in DEXTROSE 5% 250 ML IV SCH (09:52)
[2021-05-01] MEDS: FAMOTIDINE 20 MG TAB PO SCH ×2 (09:58→20:25)
[2021-05-01] MEDS: guaiFENesin 600 MG TABCR PO SCH ×2 (09:58→20:26)
--- NOTE | 2021-05-01 12:47 | Hospitalist Progress Note ---
Date of Service May 01, 2021 Assessment & Plan (1) Pneumonia due to 2019-nCoV: Plan: Severe, with resulting acute hypoxic respiratory failure. Continue dexamethasone 6 mg IV daily, day #2 today. Continue Remdesivir, day #2 today. Day #2 of azithromycin. Plan 5 days. Can d/c IV -- change to oral tomorrow. Day #2 of Baricitinib. Continue Duonebs q6h. Self-proning, flutter valve and incentive spirometry all encouraged once again. Lovenox 50mg BID for DVT prophylaxis. Repeat CRP today is improved in comparison to yesterday. He is at high risk of decompensation, intubation, and [facility]. (2) Acute respiratory failure with hypoxia: Plan: 2nd to #1. Continue CPAP at HS, HFNC during the day. (3) History of thymoma: (4) Fatty liver: (5) Diabetes mellitus type 2, uncontrolled: Plan: New diagnosis. A1C 8.7%. Discussed diagnosis with him. Will ultimately need diabetes education. He remains on insulin drip due to steroids & stress of illness. Pharmacy glycemic team involved; recommendations appreciated. Lantus initiated by pharmacy as well. T2DM diet. (6) DVT prophylaxis: Plan: lovenox 50mg BID (7) Transaminitis: Plan: likely 2nd to COVID infection. trend, repeat ast/alt in am. Plan: updated pt's by phone this evening Admission and Anticipated Discharge Date Admission Date: April 30, 2021 Subjective patient wore the CPAP all night he has been proning as much as possible he states he feels "slightly" better today; breathing marginally better able to eat breakfast mild cough, no sputum no chest pain no fevers/chills Review of Systems Review of Systems: gen - fatigue, weak CV - no chest pain, no orthopnea pulm - mild dyspnea on exertion GI - no N/V/D/abd pain Physical Exam Physical Exam: gen - mild tachypnea, but able to talk in complete sentences, l ooks sick neck - no JVD mouth - MM slightly dry heart - RRR, s1 s2, no murmur lungs - bibasilar rales, no wheeze; mild subcostal retractions; mild tachypnea abd - soft, NT, ND, BS+ ext - no edema, pulses 2+ b/l skin - no rash Results & Data Results & Data ([facility]) Vital Signs (Past 12 Hours) Vital Signs Pulse Pulse Resp BP Pulse Ox Pulse Ox 05/01/21 11:29 104 H 28 H 94 05/01/21 11:17 91 H 26 H 92 05/01/21 11:15 91 H 26 H 92 05/01/21 07:37 92 05/01/21 06:26 86 85 26 H 93 05/01/21 05:21 90 24 158/83 H 92 Laboratory Results Laboratory Results - last 24 hr 04/30/21 05/01/21 05/01/21 22:50 01:00 02:03 WBC RBC Hgb Hct MCV MCH MCHC RDW Std Deviation RDW Coeff of Wan Plt Count MPV Immature Gran % (Auto) Neut % (Auto) Lymph % (Auto) [place] % (Auto) Eos % (Auto) Baso % (Auto) Neut # (Auto) Lymph # (Auto) [place] # (Auto) Eos # (Auto) Baso # (Auto) Immature Gran # (Auto) Sodium Potassium Chloride Carbon Dioxide Anion Gap BUN Creatinine Est Cr Clr Drug Dosing Est GFR ( Amer) Est GFR (Non-Af Amer) BUN/Creatinine Ratio Glucose POC Glucose 128 H 92 96 Estimat Average Glucose Hemoglobin A1c Calcium Magnesium Total Bilirubin AST ALT Alkaline Phosphatase C-Reactive Protein Total Protein Albumin Globulin Albumin/Globulin Ratio Procalcitonin 05/01/21 05/01/21 05/01/21 03:06 04:03 05:12 WBC RBC Hgb Hct MCV MCH MCHC RDW Std Deviation RDW Coeff of Wan Plt Count MPV Immature Gran % (Auto) Neut % (Auto) Lymph % (Auto) [place] % (Auto) Eos % (Auto) Baso % (Auto) Neut # (Auto) Lymph # (Auto) [place] # (Auto) Eos # (Auto) Baso # (Auto) Immature Gran # (Auto) Sodium Potassium Chloride Carbon Dioxide Anion Gap BUN Creatinine Est Cr Clr Drug Dosing Est GFR ( Amer) Est GFR (Non-Af Amer) BUN/Creatinine Ratio Glucose POC Glucose 103 H 98 102 H Estimat Average Glucose Hemoglobin A1c Calcium Magnesium Total Bilirubin AST ALT Alkaline Phosphatase C-Reactive Protein Total Protein Albumin Globulin Albumin/Globulin Ratio Procalcitonin 05/01/21 05/01/21 05/01/21 05:48 05:48 05:48 WBC 17.32 H RBC 5.02 Hgb 14.9 Hct 43.8 MCV 87.3 MCH 29.7 MCHC 34.0 RDW Std Deviation 42.2 RDW Coeff of Wan 13.2 Plt Count 194 MPV 11.9 H Immature Gran % (Auto) 1.1 Neut % (Auto) 86.8 Lymph % (Auto) 6.9 [place] % (Auto) 5.0 Eos % (Auto) 0.1 Baso % (Auto) 0.1 Neut # (Auto) 15.04 H Lymph # (Auto) 1.19 L [place] # (Auto) 0.87 H Eos # (Auto) 0.01 Baso # (Auto) 0.02 Immature Gran # (Auto) 0.19 H Sodium 140 Potassium 3.8 Chloride 108 H Carbon Dioxide 26 Anion Gap 6.0 BUN 24 H Creatinine 0.72 Est Cr Clr Drug Dosing 135.6 Est GFR ( Amer) 124.3 Est GFR (Non-Af Amer) 107.3 BUN/Creatinine Ratio 33.6 H Glucose 110 H POC Glucose Estimat Average Glucose 203 Hemoglobin A1c 8.7 H Calcium 8.8 Magnesium 2.5 H Total Bilirubin 0.7 D AST 68 H ALT 83 H Alkaline Phosphatase 76 C-Reactive Protein 13.30 H Total Protein 6.6 Albumin 2.8 L Globulin 3.8 Albumin/Globulin Ratio 0.7 L Procalcitonin 05/01/21 05/01/21 05/01/21 05:48 06:17 07:26 WBC RBC Hgb Hct MCV MCH MCHC RDW Std Deviation RDW Coeff of Wan Plt Count MPV Immature Gran % (Auto) Neut % (Auto) Lymph % (Auto) [place] % (Auto) Eos % (Auto) Baso % (Auto) Neut # (Auto) Lymph # (Auto) [place] # (Auto) Eos # (Auto) Baso # (Auto) Immature Gran # (Auto) Sodium Potassium Chloride Carbon Dioxide Anion Gap BUN Creatinine Est Cr Clr Drug Dosing Est GFR ( Amer) Est GFR (Non-Af Amer) BUN/Creatinine Ratio Glucose POC Glucose 104 H 119 H Estimat Average Glucose Hemoglobin A1c Calcium Magnesium Total Bilirubin AST ALT Alkaline Phosphatase C-Reactive Protein Total Protein Albumin Globulin Albumin/Globulin Ratio Procalcitonin 0.41 05/01/21 05/01/21 05/01/21 08:20 10:37 12:36 WBC RBC Hgb Hct MCV MCH MCHC RDW Std Deviation RDW Coeff of Wan Plt Count MPV Immature Gran % (Auto) Neut % (Auto) Lymph % (Auto) [place] % (Auto) Eos % (Auto) Baso % (Auto) Neut # (Auto) Lymph # (Auto) [place] # (Auto) Eos # (Auto) Baso # (Auto) Immature Gran # (Auto) Sodium Potassium Chloride Carbon Dioxide Anion Gap BUN Creatinine Est Cr Clr Drug Dosing Est GFR ( Amer) Est GFR (Non-Af Amer) BUN/Creatinine Ratio Glucose POC Glucose 127 H 142 H 180 H Estimat Average Glucose Hemoglobin A1c Calcium Magnesium Total Bilirubin AST ALT Alkaline Phosphatase C-Reactive Protein Total Protein Albumin Globulin Albumin/Globulin Ratio Procalcitonin 05/01/21 05/01/21 05/01/21 15:11 16:30 18:17 WBC RBC Hgb Hct MCV MCH MCHC RDW Std Deviation RDW Coeff of Wan Plt Count MPV Immature Gran % (Auto) Neut % (Auto) Lymph % (Auto) [place] % (Auto) Eos % (Auto) Baso % (Auto) Neut # (Auto) Lymph # (Auto) [place] # (Auto) Eos # (Auto) Baso # (Auto) Immature Gran # (Auto) Sodium Potassium Chloride Carbon Dioxide Anion Gap BUN Creatinine Est Cr Clr Drug Dosing Est GFR ( Amer) Est GFR (Non-Af Amer) BUN/Creatinine Ratio Glucose POC Glucose 211 H 190 H 138 H Estimat Average Glucose Hemoglobin A1c Calcium Magnesium Total Bilirubin AST ALT Alkaline Phosphatase C-Reactive Protein Total Protein Albumin Globulin Albumin/Globulin Ratio Procalcitonin 05/01/21 05/01/21 19:18 20:32 WBC RBC Hgb Hct MCV MCH MCHC RDW Std Deviation RDW Coeff of Wan Plt Count MPV Immature Gran % (Auto) Neut % (Auto) Lymph % (Auto) [place] % (Auto) Eos % (Auto) Baso % (Auto) Neut # (Auto) Lymph # (Auto) [place] # (Auto) Eos # (Auto) Baso # (Auto) Immature Gran # (Auto) Sodium Potassium Chloride Carbon Dioxide Anion Gap BUN Creatinine Est Cr Clr Drug Dosing Est GFR ( Amer) Est GFR (Non-Af Amer) BUN/Creatinine Ratio Glucose POC Glucose 110 H 127 H Estimat Average Glucose Hemoglobin A1c Calcium Magnesium Total Bilirubin AST ALT Alkaline Phosphatase C-Reactive Protein Total Protein Albumin Globulin Albumin/Globulin Ratio Procalcitonin PG Care Time/CCT Total # of Minutes Spent Total Time Spent with Patient: Total time spent is greater than 50% in coordination of care (as documented) at patient's floor/unit and/or counseling patient: Coding Level of Care Code 28307 Subseq Hosp Care Lvl 3 Diagnoses Pneumonia due to 2019-nCoV U07.1; J12.82 Acute respiratory failure with hypoxia J96.01 History of thymoma Z86.018 Fatty liver K76.0 Diabetes mellitus type 2, uncontrolled E11.65 DVT prophylaxis Z29.9 Transaminitis R74.01
[2021-05-01] MEDS: CHOLECALCIFEROL 1,000 UNITS 25 MCG TAB PO SCH (15:12)
[2021-05-01] MEDS: ASCORBIC ACID 500 MG TAB PO SCH (15:12)
[2021-05-01] MEDS: ZINC SULFATE 220 MG CAPSULE PO SCH (15:12)
[2021-05-01] MEDS: VITAMIN B COMPLEX TAB PO SCH (15:12)
[2021-05-01] MEDS: 4mg Daily x 14 days (eGFR >60 mL/min/1.73m2) PO SCH (18:12)
[2021-05-01] MEDS: REMDESIVIR 100 MG in SODIUM CHLORIDE 0.9% 230 ML IV SCH (18:12)
[2021-05-01] MEDS: SODIUM CHLORIDE 0.9% 10ML FLUSH IV SCH (21:45)
[2021-05-01] MEDS: INSULIN GLARGINE SOLOSTAR 100 UNITS/ML 3 ML PEN SC SCH (22:06)
[2021-05-02] MEDS: ALBUT/IPRATROP 3MG/0.5MG NEB 3 ML VIAL NEB SCH ×4 (07:19→20:05)
[2021-05-02] MEDS: INSULIN REGULAR 250 UNITS in SODIUM CHLORIDE 0.9% 247.5 ML IV SCH (07:47)
[2021-05-02 08:05] LABS: BUN Creatinine Ratio 33.2 (10-20); Calcium 8.4 mg/dl (8.5-10.1); Creatinine Clr Calc Pharmacy 126.9 ml/min; Est GFR (African American) 121.6 ml/min; Est GFR (Non-African American) 104.9 ml/min
[2021-05-02 08:22] LABS: Potassium 3.7 mmol/L (3.5-5.1)
[2021-05-02] MEDS: dexAMETHasone 6 MG in SYRINGE 0 ML IV SCH (08:53)
[2021-05-02] MEDS: 4mg Daily x 14 days (eGFR >60 mL/min/1.73m2) PO SCH (08:53)
[2021-05-02] MEDS: ENOXAPARIN INJ 60 MG/0.6 ML SYR SQ SCH ×2 (08:54→20:23)
[2021-05-02] MEDS: ASCORBIC ACID 500 MG TAB PO SCH (08:54)
[2021-05-02] MEDS: CHOLECALCIFEROL 1,000 UNITS 25 MCG TAB PO SCH (08:54)
[2021-05-02] MEDS: ZINC SULFATE 220 MG CAPSULE PO SCH (08:54)
[2021-05-02] MEDS: guaiFENesin 600 MG TABCR PO SCH ×2 (08:54→20:23)
[2021-05-02] MEDS: VITAMIN B COMPLEX TAB PO SCH (08:54)
[2021-05-02] MEDS: FAMOTIDINE 20 MG TAB PO SCH ×2 (08:55→20:23)
[2021-05-02] MEDS: INSULIN ASPART PER UNIT SC SCH ×4 (09:11→20:32)
[2021-05-02] MEDS: INSULIN HUMAN NPH SC SCH (09:12)
[2021-05-02] MEDS: AZITHROMYCIN 250 MG TAB PO SCH (09:44)
[2021-05-02] MEDS: REMDESIVIR 100 MG in SODIUM CHLORIDE 0.9% 230 ML IV SCH (12:50)
[2021-05-02] MEDS: SODIUM CHLORIDE 0.9% 10ML FLUSH IV SCH (13:11)
--- NOTE | 2021-05-02 13:19 | Pharmacy Report ---
Pharmacy Glycemic Short Note 2 - Date of Service May 02, 2021 - Glycemic Short BSG Results (Last 24 hours): 05/01/21 05/01/21 05/01/21 15:11 16:30 18:17 Glucose POC Glucose 211 H 190 H 138 H 05/01/21 05/01/21 05/01/21 19:18 20:32 22:50 Glucose POC Glucose 110 H 127 H 138 H 05/02/21 05/02/21 05/02/21 01:31 03:34 04:53 Glucose POC Glucose 122 H 98 77 05/02/21 05/02/21 05/02/21 05:19 06:02 06:41 Glucose 142 H POC Glucose 152 H 138 H 05/02/21 05/02/21 07:10 11:54 Glucose POC Glucose 156 H 122 H OUTPATIENT ANTIDIABETIC REGIMEN: * N/A * A1c = 8.7% 05/01/21 ASSESSMENT: 05/02: * BSGs well-controlled yesterday while on insulin infusion * Insulin infusion discontinued this morning due to BSGs below goal range at reasonable insulin infusion rates * Will cover IV dexamethasone with conservative NPH dose and maintain aggressive Novolog parameters 05/01: * Patient admitted for COVID19 viral pneumonia * Severely hyperglycemic on admission, but no prior dx of DM. A1c consistent with DM. Hyperglycemic but not DKA/HHS. * IV insulin infusion started due to addition of IV steroids while already hyperglycemic. Low dose basal insulin also started in attempts to make future transition to SQ regimen easier. * Insulin infusion continues this AM, running steadily at 3.8units/hr with BSGs in goal range. Discussed pt's respiratory and nutritional status w/ RN this AM. Pt quickly desaturates when off BiPAP and likely will not be able to eat much if any today. Will refrain from adding NPH insulin due to uncertain PO intake. Will wait to see response to IV dexamethasone while NPO this AM to determine if NPH would still be appropriate moving forward. Insulin drip remains most appropriate therapy this AM, however may be able to begin transition to SQ later today once more data collected. PLAN FOR INPATIENT GLYCEMIC CONTROL: * Basal insulin * NPH 25 units (~0.25 unit/kg) * Bolus insulin * NovoLog per scale ACHS or Q6hrs while NPO * Goal Range: Low 110 mg/dL - High 140 mg/dL * Correction Factor: 15 mg/dL/unit * Nutritional / Prandial insulin per carb ratio of 1 unit per 5 grams CHO consumed PLAN FOR DISCHARGE: * HbA1c of 8.7% (05/01/21), reasonable goal for this patient would be less than 7% * Metformin should be started at the time type 2 diabetes is diagnosed unless there are contraindications. Metformin is effective and safe, is inexpensive, and may reduce risk of cardiovascular events and . * B12 supplementation may be necessary with intermediate metformin use * FDA has revised the label for metformin to reflect its safety in patients with eGFR 30 mL/min or above * Recommend starting: Metformin XR 500mg PO daily with evening meal. Typically the XR formulation of metformin is better tolerated than the immediate release formulation. Continue to titrate metformin dosing upwards as recommended. Dosage increases should be made in increments of 500 mg weekly, up to 2,000 mg/day PO, given in divided doses. Doses above 2000 mg/day may be better tolerated if divided and given 3 times per day with meals. Max: 2,550 mg/day PO, in divided doses * Support Patient Self-Management * Healthy Lifestyle (diet, exercise, and smoking cessation) * Disease self-management (SMBG) * Prevention of complications (BP, Lipid goals, Immunizations) * Consider outpatient Diabetes Self-Management Education & Support * Patient will likely require additional antidiabetic therapy, but would first trial metformin and defer further decision-making to outpatient provider
--- NOTE | 2021-05-02 23:47 | Hospitalist Progress Note ---
Date of Service May 02, 2021 Assessment & Plan (1) Pneumonia due to 2019-nCoV: Plan: Severe, with resulting acute hypoxic respiratory failure. Continue dexamethasone 6 mg IV daily, day #3 today. Continue Remdesivir, day #3 today. Day #3 of azithromycin. Plan 5 days. Day #3 of Baricitinib. Continue Duonebs q6h. Self-proning, flutter valve and incentive spirometry. Lovenox 50mg BID for DVT prophylaxis. Repeat CRP today again is improved. Continue HFNC during the day; CPAP at night. (2) Acute respiratory failure with hypoxia: Plan: 2nd to #1. Continue CPAP at HS, HFNC during the day. (3) History of thymoma: (4) Fatty liver: Plan: stable LFTs (5) Diabetes mellitus type 2, uncontrolled: Plan: New diagnosis. A1C 8.7%. Discussed diagnosis with him. Needs diabetes education and dietary counseling. Pharmacy glycemic team involved; recommendations appreciated. Insulin drip stopped. Transitioned to basal-bolus SC regimen. (6) DVT prophylaxis: Plan: lovenox 50mg BID (7) Transaminitis: Plan: likely 2nd to COVID infection. trend, repeat ast/alt in am. Plan: updated pt's by phone this evening and last evening Admission and Anticipated Discharge Date Admission Date: April 30, 2021 Subjective no events overnight tele stable remains on 40 L + 100% FiO2 HFNC has been in the chair much of the day no significant dyspnea at rest; PRESTON remains no significant cough no chest pain "eating well" Review of Systems Review of Systems: gen - no fevers or chills; mild fatigue CV - no orthopnea, no cp pulm - no sputum GI - no N/V/D/constipation/pain Physical Exam Physical Exam: gen - tachypnea improved; looks better than previous visits neck - no JVD mouth - MMM heart - RRR, s1 s2, no murmur lungs - fine bibasilar rales, no wheeze; no increased work of breathing abd - soft, NT, ND, BS+ ext - no edema, pulses 2+ b/l skin - no rash Results & Data Results & Data ([facility]) Vital Signs (Past 12 Hours) Vital Signs Temp Pulse Pulse Resp BP Pulse Ox 05/02/21 22:49 36.6 C 83 21 117/80 94 05/02/21 22:19 67 05/02/21 20:06 77 26 H 89 L 05/02/21 19:25 36.5 C 75 23 148/81 H 88 L 05/02/21 15:30 36.6 C 98 H 24 139/85 89 L 05/02/21 15:15 78 20 93 05/02/21 12:14 37.0 C 91 H 24 125/81 88 L 05/02/21 11:56 88 24 90 Laboratory Results Laboratory Results - last 24 hr 05/02/21 05/02/21 05/02/21 01:31 03:34 04:53 Sodium Potassium Chloride Carbon Dioxide Anion Gap BUN Creatinine Est Cr Clr Drug Dosing Est GFR ( Amer) Est GFR (Non-Af Amer) BUN/Creatinine Ratio Glucose POC Glucose 122 H 98 77 Calcium AST ALT C-Reactive Protein 05/02/21 05/02/21 05/02/21 05:19 06:02 06:41 Sodium 139 Potassium 3.7 Chloride 108 H Carbon Dioxide 24 Anion Gap 7.0 BUN 25 H Creatinine 0.76 Est Cr Clr Drug Dosing 126.9 Est GFR ( Amer) 121.6 Est GFR (Non-Af Amer) 104.9 BUN/Creatinine Ratio 33.2 H Glucose 142 H POC Glucose 152 H 138 H Calcium 8.4 L AST 91 H ALT 95 H C-Reactive Protein 6.00 H 05/02/21 05/02/21 05/02/21 07:10 11:54 16:52 Sodium Potassium Chloride Carbon Dioxide Anion Gap BUN Creatinine Est Cr Clr Drug Dosing Est GFR ( Amer) Est GFR (Non-Af Amer) BUN/Creatinine Ratio Glucose POC Glucose 156 H 122 H 169 H Calcium AST ALT C-Reactive Protein 05/02/21 05/02/21 16:52 20:15 Sodium Potassium Chloride Carbon Dioxide Anion Gap BUN Creatinine Est Cr Clr Drug Dosing Est GFR ( Amer) Est GFR (Non-Af Amer) BUN/Creatinine Ratio Glucose POC Glucose 169 H 145 H Calcium AST ALT C-Reactive Protein PG Care Time/CCT Total # of Minutes Spent Total Time Spent with Patient: Total time spent is greater than 50% in coordination of care (as documented) at patient's floor/unit and/or counseling patient: Coding Level of Care Code 01365 Subseq Hosp Care Lvl 2 Diagnoses Pneumonia due to 2019-nCoV U07.1; J12.82 Acute respiratory failure with hypoxia J96.01 History of thymoma Z86.018 Fatty liver K76.0 Diabetes mellitus type 2, uncontrolled E11.65 DVT prophylaxis Z29.9 Transaminitis R74.01
[2021-05-03] MEDS: ALBUT/IPRATROP 3MG/0.5MG NEB 3 ML VIAL NEB SCH ×2 (07:13→11:29)
[2021-05-03 07:28] LABS: BUN Creatinine Ratio 26.3 (10-20); Est GFR (African American) 116.7 ml/min; Est GFR (Non-African American) 100.7 ml/min; Potassium 4.2 mmol/L (3.5-5.1)
[2021-05-03 07:48] LABS: Magnesium 2.4 mg/dl (1.8-2.4)
[2021-05-03] MEDS: ASCORBIC ACID 500 MG TAB PO SCH (08:14)
[2021-05-03] MEDS: FAMOTIDINE 20 MG TAB PO SCH ×2 (08:14→20:37)
[2021-05-03] MEDS: CHOLECALCIFEROL 1,000 UNITS 25 MCG TAB PO SCH (08:14)
[2021-05-03] MEDS: VITAMIN B COMPLEX TAB PO SCH (08:14)
[2021-05-03] MEDS: AZITHROMYCIN 250 MG TAB PO SCH (08:14)
[2021-05-03] MEDS: dexAMETHasone 6 MG in SYRINGE 0 ML IV SCH (08:14)
[2021-05-03] MEDS: ENOXAPARIN INJ 60 MG/0.6 ML SYR SQ SCH ×2 (08:15→20:38)
[2021-05-03] MEDS: 4mg Daily x 14 days (eGFR >60 mL/min/1.73m2) PO SCH (08:15)
[2021-05-03] MEDS: guaiFENesin 600 MG TABCR PO SCH ×2 (08:16→20:37)
[2021-05-03] MEDS: ZINC SULFATE 220 MG CAPSULE PO SCH (08:17)
[2021-05-03] MEDS: INSULIN HUMAN NPH SC SCH (08:48)
[2021-05-03] MEDS: INSULIN ASPART PER UNIT SC SCH ×4 (08:48→21:39)
[2021-05-03] MEDS ORDERED: ALBUT/IPRATROP 3MG/0.5MG NEB 3 ML VIAL NEB PRN (11:24)
[2021-05-03] MEDS: REMDESIVIR 100 MG in SODIUM CHLORIDE 0.9% 230 ML IV SCH (12:54)
[2021-05-03] MEDS: SODIUM CHLORIDE 0.9% 10ML FLUSH IV SCH (12:55)
[2021-05-03] MEDS ORDERED: FUROSEMIDE 20 MG TAB PO ONE (14:18)
[2021-05-03] MEDS ORDERED: POTASSIUM CHLORIDE 10 MEQ TABCR PO STA (14:18)
--- NOTE | 2021-05-03 14:19 | Hospitalist Progress Note ---
Date of Service May 03, 2021 Assessment & Plan (1) Pneumonia due to 2019-nCoV: Plan: Severe, with resulting acute hypoxic respiratory failure. NO significant change today but no worsening either. Continue dexamethasone 6 mg IV daily, day #4 today. Continue Remdesivir, day #4 today. Day #4 of azithromycin. Plan 5 days. Day #4 of Baricitinib. No wheezing - make Duonebs prn. Self-proning, flutter valve and incentive spirometry. Lovenox 50mg BID for DVT prophylaxis. Continue HFNC during the day; CPAP at night. (2) Acute respiratory failure with hypoxia: Plan: 2nd to #1. Continue CPAP at HS, HFNC during the day. lasix 20mg po x 1 to keep net I/O balance negative (3) History of thymoma: (4) Fatty liver: Plan: LFTs modestly worse today but still meets criteria for use of remdesivir/baricitinib (5) Diabetes mellitus type 2, uncontrolled: Plan: New diagnosis. A1C 8.7%. Discussed diagnosis with him. Needs diabetes education and dietary counseling. Pharmacy glycemic team involved; recommendations appreciated. Insulin drip stopped. Transitioned to basal-bolus SC regimen. Control very adequate now. (6) DVT prophylaxis: Plan: lovenox 50mg BID (7) Transaminitis: Plan: likely 2nd to COVID infection. ast/alt modestly worse today these need to be watched carefully if they continue to worsen would need to consider holding last doses of Remdesivir and/or Baricitinib LFTs am Plan: updated pt's by phone this evening and last evening Admission and Anticipated Discharge Date Admission Date: April 30, 2021 Subjective patient again states he feels a little better today slept very well last night eating robustly PRESTON remains and this is unchanged; walking 5-10 feet leads to severe dyspnea scant cough no chest pain remains on very high settings of HFNC tolerant of CPAP at HS he continues to prone Review of Systems Review of Systems: gen - fever this am; weak CV - no cp, no orthopnea pulm - no wheezing GI - no N/V/diarrhea Physical Exam Physical Exam: gen - tachypnea similar to yesterday's exam, slight conversational dyspnea neck - no JVD mouth - MMM heart - RRR, s1 s2, no murmur lungs - fine bibasilar rales, no wheeze; no increased work of breathing but mild tachypnea abd - soft, NT, ND, BS+ ext - no edema, pulses 2+ b/l skin - no rash Results & Data Results & Data ([facility]) Vital Signs (Past 12 Hours) Vital Signs Temp Pulse Pulse Resp BP Pulse Ox Pulse Ox 05/03/21 11:37 80 19 89 L 05/03/21 11:32 36.9 C 79 24 109/73 89 L 05/03/21 08:46 37.1 C 05/03/21 08:00 91 05/03/21 07:35 37.9 C H 88 24 138/77 95 05/03/21 07:13 68 22 98 05/03/21 03:35 72 22 96 05/03/21 03:04 92 05/03/21 03:00 37.4 C 73 20 119/72 93 Laboratory Results Laboratory Results - last 24 hr 05/02/21 05/02/21 05/02/21 16:52 16:52 20:15 Sodium Potassium Chloride Carbon Dioxide Anion Gap BUN Creatinine Est Cr Clr Drug Dosing Est GFR ( Amer) Est GFR (Non-Af Amer) BUN/Creatinine Ratio Glucose POC Glucose 169 H 169 H 145 H Calcium Phosphorus Magnesium AST ALT Specimen Hemolysis 05/03/21 05/03/21 05/03/21 06:25 07:35 11:31 Sodium 140 Potassium 4.2 Chloride 108 H Carbon Dioxide 23 Anion Gap 9.0 BUN 22 H Creatinine 0.84 Est Cr Clr Drug Dosing 115.0 Est GFR ( Amer) 116.7 Est GFR (Non-Af Amer) 100.7 BUN/Creatinine Ratio 26.3 H Glucose 130 H POC Glucose 143 H 169 H Calcium 9.0 Phosphorus 4.0 Magnesium 2.4 AST 148 H ALT 149 H Specimen Hemolysis PG Care Time/CCT Total # of Minutes Spent Total Time Spent with Patient: Total time spent is greater than 50% in coordination of care (as documented) at patient's floor/unit and/or counseling patient: Coding Level of Care Code 06435 Subseq Hosp Care Lvl 2 Diagnoses Pneumonia due to 2019-nCoV U07.1; J12.82 Acute respiratory failure with hypoxia J96.01 History of thymoma Z86.018 Fatty liver K76.0 Diabetes mellitus type 2, uncontrolled E11.65 DVT prophylaxis Z29.9 Transaminitis R74.01
[2021-05-04 08:06] LABS: Hematocrit (blood only) 43.3 % (42-52); Hemoglobin 15.3 g/dL (14.0-18.0); Mean Corpuscular Hemoglobin 30.6 pg (25-34); Mean Corpuscular Hgb Conc 35.3 g/dL (32-36); Mean Corpuscular Volume 86.6 fL (80-100); Mean Platelet Volume 11.7 fL (7.4-10.4); Platelet Count 278 K/uL (130-400); RDW Standard Deviation 41.6 fL (36.4-46.3); White Blood Count 17.17 K/uL (4.8-10.8)
[2021-05-04 08:40] LABS: Albumin Level 2.9 gm/dl (3.4-5.0); BUN Creatinine Ratio 27.8 (10-20); Bilirubin Direct 0.2 mg/dl (0-0.2); Creatinine Clr Calc Pharmacy 129.5 ml/min; Est GFR (African American) 122.2 ml/min; Est GFR (Non-African American) 105.5 ml/min
[2021-05-04 08:43] LABS: Bilirubin,Total 0.9 mg/dl (0.2-1); Total Protein 6.8 gm/dl (6.4-8.2)
[2021-05-04] MEDS ORDERED: POTASSIUM CHLORIDE 10 MEQ TABCR PO STA (08:55)
[2021-05-04] MEDS ORDERED: FUROSEMIDE 20 MG TAB PO ONE (09:00)
[2021-05-04] MEDS: 4mg Daily x 14 days (eGFR >60 mL/min/1.73m2) PO SCH (09:11)
[2021-05-04] MEDS: VITAMIN B COMPLEX TAB PO SCH (09:12)
[2021-05-04] MEDS: AZITHROMYCIN 250 MG TAB PO SCH (09:12)
[2021-05-04] MEDS: CHOLECALCIFEROL 1,000 UNITS 25 MCG TAB PO SCH (09:12)
[2021-05-04] MEDS: ZINC SULFATE 220 MG CAPSULE PO SCH (09:12)
[2021-05-04] MEDS: ASCORBIC ACID 500 MG TAB PO SCH (09:12)
[2021-05-04] MEDS: guaiFENesin 600 MG TABCR PO SCH ×2 (09:13→20:56)
[2021-05-04] MEDS: ENOXAPARIN INJ 60 MG/0.6 ML SYR SQ SCH ×2 (09:13→20:57)
[2021-05-04] MEDS: FAMOTIDINE 20 MG TAB PO SCH ×2 (09:13→20:57)
[2021-05-04] MEDS: INSULIN ASPART PER UNIT SC SCH ×4 (09:24→20:56)
[2021-05-04] MEDS: INSULIN HUMAN NPH SC SCH (09:25)
[2021-05-04] MEDS: dexAMETHasone 6 MG in SYRINGE 0 ML IV SCH (09:38)
[2021-05-04] MEDS: REMDESIVIR 100 MG in SODIUM CHLORIDE 0.9% 230 ML IV SCH (11:10)
[2021-05-04] MEDS: SODIUM CHLORIDE 0.9% 10ML FLUSH IV SCH (13:34)
--- NOTE | 2021-05-04 22:55 | Hospitalist Progress Note ---
Date of Service May 04, 2021 Assessment & Plan (1) Pneumonia due to 2019-nCoV: Plan: Severe, with resulting acute hypoxic respiratory failure. No change in O2 requirements overnight. Continue dexamethasone 6 mg IV daily, day #5 today. Continue Remdesivir, day #5 today. Day #5 of azithromycin. Plan 5 days. Day #5 of Baricitinib. Cont self-proning, flutter valve and incentive spirometry. Lovenox 50mg BID for DVT prophylaxis. Continue HFNC during the day; CPAP at night. Showed CT of chest to patient and his today explaining the severity of his disease, potential timing of his hospital course, etc. Give another dose of PO lasix to keep I/O balance negative (2) Acute respiratory failure with hypoxia: Plan: 2nd to #1. Continue CPAP at HS, HFNC during the day. lasix 20mg po x 1 to keep net I/O balance negative (3) History of thymoma: (4) Fatty liver: Plan: LFTs modestly improved today repeat am still meets criteria for use of remdesivir/baricitinib (5) Diabetes mellitus type 2, uncontrolled: Plan: New diagnosis. A1C 8.7%. Needs diabetes education and dietary counseling. Pharmacy glycemic team involved; recommendations appreciated. Insulin drip stopped. Transitioned to basal-bolus SC regimen. Control very adequate now. (6) DVT prophylaxis: Plan: lovenox 50mg BID (7) Transaminitis: Plan: likely 2nd to COVID infection. ast/alt modestly improved today these need to be watched carefully LFTs am Plan: updated pt's via Face-time call today Admission and Anticipated Discharge Date Admission Date: April 30, 2021 Subjective patient has no new complaints using CPAP at HS HFNC - max settings - during the day states his PRESTON is improved eating well no areas of pain during the visit the pt's was face-timing with him no chest pain no orthopnea Review of Systems Review of Systems: gen - no fevers, no chills CV - no pleurisy pulm - no dyspnea at rest GI - no N/V/D Physical Exam Physical Exam: gen - modest tachypnea similar to yesterday's exam, slight conversational dyspnea; sitting in bed neck - no JVD mouth - MMM heart - RRR, s1 s2, no murmur lungs - fine bibasilar rales - improved from prior exams; decreased BS bases; no wheeze; no increased work of breathing but mild tachypnea abd - soft, NT, ND, BS+ ext - no edema, pulses 2+ b/l skin - no rash Results & Data Results & Data ([facility]) Vital Signs (Past 12 Hours) Vital Signs Temp Pulse Pulse Resp BP Pulse Ox 05/04/21 20:16 86 22 91 05/04/21 19:16 37.4 C 77 22 134/77 88 L 05/04/21 18:00 76 05/04/21 15:57 37.3 C 87 22 116/82 94 05/04/21 15:04 96 H 24 91 05/04/21 11:50 37.0 C 91 H 18 123/70 89 L 05/04/21 11:12 98 H 24 88 L Laboratory Results Laboratory Results - last 24 hr 05/04/21 05/04/21 05/04/21 07:10 07:10 07:59 WBC 17.17 H RBC 5.00 Hgb 15.3 Hct 43.3 MCV 86.6 MCH 30.6 MCHC 35.3 RDW Std Deviation 41.6 RDW Coeff of Wan 13.0 Plt Count 278 MPV 11.7 H Sodium 138 Potassium 4.0 Chloride 107 Carbon Dioxide 20 L Anion Gap 11.0 BUN 21 H Creatinine 0.75 Est Cr Clr Drug Dosing 129.5 Est GFR ( Amer) 122.2 Est GFR (Non-Af Amer) 105.5 BUN/Creatinine Ratio 27.8 H Glucose 137 H POC Glucose 139 H Calcium 9.0 Total Bilirubin 0.9 Direct Bilirubin 0.2 AST 99 H ALT 130 H Alkaline Phosphatase 84 Total Protein 6.8 Albumin 2.9 L 05/04/21 05/04/21 05/04/21 11:50 17:03 20:14 WBC RBC Hgb Hct MCV MCH MCHC RDW Std Deviation RDW Coeff of Wan Plt Count MPV Sodium Potassium Chloride Carbon Dioxide Anion Gap BUN Creatinine Est Cr Clr Drug Dosing Est GFR ( Amer) Est GFR (Non-Af Amer) BUN/Creatinine Ratio Glucose POC Glucose 162 H 90 132 H Calcium Total Bilirubin Direct Bilirubin AST ALT Alkaline Phosphatase Total Protein Albumin PG Care Time/CCT Total # of Minutes Spent Total Time Spent with Patient: Total time spent is greater than 50% in coordination of care (as documented) at patient's floor/unit and/or counseling patient: Coding Level of Care Code 62711 Subseq Hosp Care Lvl 3 Diagnoses Pneumonia due to 2019-nCoV U07.1; J12.82 Acute respiratory failure with hypoxia J96.01 History of thymoma Z86.018 Fatty liver K76.0 Diabetes mellitus type 2, uncontrolled E11.65 DVT prophylaxis Z29.9 Transaminitis R74.01
[2021-05-05] MEDS: dexAMETHasone 6 MG in SYRINGE 0 ML IV SCH (07:49)
[2021-05-05] MEDS: guaiFENesin 600 MG TABCR PO SCH ×2 (07:52→19:44)
[2021-05-05] MEDS: ZINC SULFATE 220 MG CAPSULE PO SCH (07:52)
[2021-05-05] MEDS: CHOLECALCIFEROL 1,000 UNITS 25 MCG TAB PO SCH (07:52)
[2021-05-05] MEDS: ASCORBIC ACID 500 MG TAB PO SCH (07:52)
[2021-05-05] MEDS: ENOXAPARIN INJ 60 MG/0.6 ML SYR SQ SCH ×2 (07:52→19:44)
[2021-05-05] MEDS: FAMOTIDINE 20 MG TAB PO SCH ×2 (07:52→19:45)
[2021-05-05] MEDS: VITAMIN B COMPLEX TAB PO SCH (07:52)
[2021-05-05 08:28] LABS: BUN Creatinine Ratio 27.4 (10-20); C Reactive Protein 7.31 mg/dl (0-0.29); Calcium 8.3 mg/dl (8.5-10.1); Creatinine Clr Calc Pharmacy 123.6 ml/min; Est GFR (African American) 120.3 ml/min; Est GFR (Non-African American) 103.8 ml/min; Potassium 4.3 mmol/L (3.5-5.1)
[2021-05-05] MEDS: 4mg Daily x 14 days (eGFR >60 mL/min/1.73m2) PO SCH (09:29)
--- NOTE | 2021-05-05 09:35 | Pharmacy Report ---
Pharmacy Glycemic Short Note 2 - Date of Service May 05, 2021 - Glycemic Short BSG Results (Last 24 hours): 05/04/21 05/04/21 05/04/21 11:50 17:03 20:14 Glucose POC Glucose 162 H 90 132 H 05/05/21 05/05/21 07:33 07:34 Glucose 126 H POC Glucose 144 H OUTPATIENT ANTIDIABETIC REGIMEN: * N/A * A1c = 8.7% 05/01/21 ASSESSMENT: 05/05 * Pt has received 47 units of insulin over the past 24hrs * 25 units of basal with NPH for steroid induced hyperglycemia * 22 units of bolus with NovoLog * BSGs well controlled with current orders. All BSGs <180. No changes needed to regimen at this time. 05/02: * BSGs well-controlled yesterday while on insulin infusion * Insulin infusion discontinued this morning due to BSGs below goal range at reasonable insulin infusion rates * Will cover IV dexamethasone with conservative NPH dose and maintain aggressive Novolog parameters 05/01: * Patient admitted for COVID19 viral pneumonia * Severely hyperglycemic on admission, but no prior dx of DM. A1c consistent with DM. Hyperglycemic but not DKA/HHS. * IV insulin infusion started due to addition of IV steroids while already hyperglycemic. Low dose basal insulin also started in attempts to make future transition to SQ regimen easier. * Insulin infusion continues this AM, running steadily at 3.8units/hr with BSGs in goal range. Discussed pt's respiratory and nutritional status w/ RN this AM. Pt quickly desaturates when off BiPAP and likely will not be able to eat much if any today. Will refrain from adding NPH insulin due to uncertain PO intake. Will wait to see response to IV dexamethasone while NPO this AM to determine if NPH would still be appropriate moving forward. Insulin drip remains most appropriate therapy this AM, however may be able to begin transition to SQ later today once more data collected. PLAN FOR INPATIENT GLYCEMIC CONTROL: * Basal insulin * NPH 25 units (~0.25 unit/kg) SQ daily to be given with dexamethasone. * Bolus insulin * NovoLog per scale ACHS or Q6hrs while NPO * Goal Range: Low 110 mg/dL - High 140 mg/dL * Correction Factor: 15 mg/dL/unit * Nutritional / Prandial insulin per carb ratio of 1 unit per 5 grams CHO consumed PLAN FOR DISCHARGE: * HbA1c of 8.7% (05/01/21), reasonable goal for this patient would be less than 7% * Metformin should be started at the time type 2 diabetes is diagnosed unless there are contraindications. Metformin is effective and safe, is inexpensive, and may reduce risk of cardiovascular events and . * B12 supplementation may be necessary with vermin exterminator metformin use * FDA has revised the label for metformin to reflect its safety in patients with eGFR 30 mL/min or above * Recommend starting: Metformin XR 500mg PO daily with evening meal. Typically the XR formulation of metformin is better tolerated than the immediate release formulation. Continue to titrate metformin dosing upwards as recommended. Dosage increases should be made in increments of 500 mg weekly, up to 2,000 mg/day PO, given in divided doses. Doses above 2000 mg/day may be better tolerated if divided and given 3 times per day with meals. Max: 2,550 mg/day PO, in divided doses * Support Patient Self-Management * Healthy Lifestyle (diet, exercise, and smoking cessation) * Disease self-management (SMBG) * Prevention of complications (BP, Lipid goals, Immunizations) * Consider outpatient Diabetes Self-Management Education & Support * Patient will likely require additional antidiabetic therapy, but would first trial metformin and defer further decision-making to outpatient provider
[2021-05-05] MEDS: INSULIN ASPART PER UNIT SC SCH ×4 (10:01→21:15)
[2021-05-05] MEDS: INSULIN HUMAN NPH SC SCH (10:02)
--- NOTE | 2021-05-05 22:35 | Hospitalist Progress Note ---
Date of Service May 05, 2021 Assessment & Plan (1) Pneumonia due to 2019-nCoV: Plan: Severe, with resulting acute hypoxic respiratory failure. No change in O2 requirements overnight. No change in overall respiratory status. Continue dexamethasone 6 mg IV daily, day #6 today. Continue Baricitinib - day #6 today. Completed 5-day course of Remdesivir. Completed 5-day course of Azithromycin. Cont self-proning, flutter valve and incentive spirometry. Lovenox 50mg BID for DVT prophylaxis. Continue HFNC during the day; BIPAP at night. CO2 on BMP this am dropped slightly, and Cr vivian slightly - no additional lasix today. CRP noted to be high today - stagnant. Cont to trend. Thus far no evidence of complicating bacterial superinfection or CHF or PE. (2) Acute respiratory failure with hypoxia: Plan: 2nd to #1. Continue BIPAP at HS, HFNC during the day. see above (3) History of thymoma: (4) Fatty liver: Plan: LFTs mildly high but acceptable enought to continue Baricitinib Continue to trend (5) Diabetes mellitus type 2, uncontrolled: Plan: New diagnosis. A1C 8.7%. Needs diabetes education and dietary counseling. Pharmacy glycemic team involved; recommendations appreciated. Was on Insulin drip early in his stay then transitioned to basal-bolus SC regimen. Control acceptable at this time. (6) DVT prophylaxis: Plan: lovenox 50mg BID (7) Transaminitis: Plan: likely 2nd to COVID infection. ast/alt mildly high but acceptable cont to trend Plan: updated pt's by phone this evening cont supportive care hospital stay will be lengthy given severity of his illness Admission and Anticipated Discharge Date Admission Date: April 30, 2021 Subjective patient without any new complaints stable overnight - used BIPAP last pm without issues max HFNC during the day he states "I'm ready to go home" he is despondent today - he is missing his daughter's college graduation tomorrow he is also sad about the potential of missing Ree with his family he continues to prone, use his incentive and flutter, etc appetite good no new complaints tele overnight wnl Review of Systems Review of Systems: gen - no fevers or chills CV - no pleuritic chest pain or substernal cp pulm - PRESTON but no change from prior exam GI - no N/V/D or abd pain Physical Exam Physical Exam: gen - sitting in chair, NAD, looks sad today; no respiratory distress neck - no JVD mouth - MMM, no thrush heart - RRR, s1 s2, no murmur lungs - fine bibasilar rales; decreased BS bases; no wheeze; no increased work of breathing but mild tachypnea still present like on previous exams abd - soft, NT, ND, BS+ ext - no edema, pulses 2+ b/l skin - no rash psych - restricted affect Results & Data Results & Data ([facility]) Vital Signs (Past 12 Hours) Vital Signs Temp Pulse Pulse Resp BP Pulse Ox Pulse Ox 05/05/21 19:39 37.1 C 84 28 H 141/71 H 92 05/05/21 16:03 81 05/05/21 15:23 36.6 C 70 39 H 92 05/05/21 15:21 79 05/05/21 12:00 75 22 88 L 05/05/21 11:59 36.5 C 76 26 H 124/84 92 05/05/21 11:33 94 H 93 Laboratory Results Laboratory Results - last 24 hr 05/05/21 05/05/21 05/05/21 07:33 07:34 12:04 Sodium 136 Potassium 4.3 Chloride 104 Carbon Dioxide 19 L Anion Gap 12.0 H BUN 21 H Creatinine 0.78 Est Cr Clr Drug Dosing 123.6 Est GFR ( Amer) 120.3 Est GFR (Non-Af Amer) 103.8 BUN/Creatinine Ratio 27.4 H Glucose 126 H POC Glucose 144 H 190 H Calcium 8.3 L AST 91 H ALT 105 H C-Reactive Protein 7.31 H 05/05/21 05/05/21 16:59 20:40 Sodium Potassium Chloride Carbon Dioxide Anion Gap BUN Creatinine Est Cr Clr Drug Dosing Est GFR ( Amer) Est GFR (Non-Af Amer) BUN/Creatinine Ratio Glucose POC Glucose 125 H 120 H Calcium AST ALT C-Reactive Protein PG Care Time/CCT Total # of Minutes Spent Total Time Spent with Patient: Total time spent is greater than 50% in coordination of care (as documented) at patient's floor/unit and/or counseling patient: Coding Level of Care Code 60386 Subseq Hosp Care Lvl 2 Diagnoses Pneumonia due to 2019-nCoV U07.1; J12.82 Acute respiratory failure with hypoxia J96.01 History of thymoma Z86.018 Fatty liver K76.0 Diabetes mellitus type 2, uncontrolled E11.65 DVT prophylaxis Z29.9 Transaminitis R74.01
[2021-05-06] MEDS: 4mg Daily x 14 days (eGFR >60 mL/min/1.73m2) PO SCH (07:52)
[2021-05-06] MEDS: CHOLECALCIFEROL 1,000 UNITS 25 MCG TAB PO SCH (07:52)
[2021-05-06] MEDS: ASCORBIC ACID 500 MG TAB PO SCH (07:52)
[2021-05-06] MEDS: ZINC SULFATE 220 MG CAPSULE PO SCH (07:52)
[2021-05-06] MEDS: FAMOTIDINE 20 MG TAB PO SCH ×2 (07:53→21:10)
[2021-05-06] MEDS: VITAMIN B COMPLEX TAB PO SCH (07:53)
[2021-05-06] MEDS: guaiFENesin 600 MG TABCR PO SCH ×2 (07:53→21:10)
[2021-05-06] MEDS: ENOXAPARIN INJ 60 MG/0.6 ML SYR SQ SCH ×2 (07:55→21:10)
[2021-05-06] MEDS: INSULIN HUMAN NPH SC SCH (09:08)
[2021-05-06] MEDS: INSULIN ASPART PER UNIT SC SCH ×4 (09:08→21:16)
[2021-05-06] MEDS: dexAMETHasone 6 MG in SYRINGE 0 ML IV SCH (09:09)
[2021-05-06 09:23] LABS: Basophils # (auto) 0.01 K/uL (0-0.2); Basophils % (auto) 0.1 %; Eosinophils # (auto) 0.21 K/uL (0-0.5); Eosinophils % (auto) 1.3 %; Hematocrit (blood only) 41.3 % (42-52); Hemoglobin 14.6 g/dL (14.0-18.0); Immature Granulocytes # (auto) 0.25 K/uL (0.00-0.02); Immature Granulocytes % (auto) 1.5 %; Lymphocytes # (auto) 0.66 K/uL (1.2-3.4); Mean Corpuscular Hemoglobin 30.4 pg (25-34); Mean Corpuscular Hgb Conc 35.4 g/dL (32-36); Mean Corpuscular Volume 85.9 fL (80-100); Mean Platelet Volume 11.2 fL (7.4-10.4); Monocytes # (auto) 0.69 K/uL (0.11-0.59); Monocytes % (auto) 4.1 %; Neutrophils # (auto) 14.82 K/uL (1.4-6.5); Platelet Count 241 K/uL (130-400); RDW Coefficient of Variation 12.7 % (11.5-14.5); RDW Standard Deviation 40.3 fL (36.4-46.3); Red Blood Count 4.81 M/uL (4.7-6.1); White Blood Count 16.64 K/uL (4.8-10.8)
[2021-05-06 09:52] LABS: Calcium 8.5 mg/dl (8.5-10.1); Creatinine Clr Calc Pharmacy 108.4 ml/min; Est GFR (African American) 113.9 ml/min; Est GFR (Non-African American) 98.3 ml/min
--- NOTE | 2021-05-06 11:16 | Hospitalist Progress Note ---
Date of Service May 06, 2021 Assessment & Plan (1) Pneumonia due to 2019-nCoV: Plan: Severe, with resulting acute hypoxic respiratory failure. currently on 50L and 80% FiO2 Continue dexamethasone 6 mg IV daily, day #7 today. Continue Baricitinib - day #7 today. Completed 5-day course of Remdesivir. Completed 5-day course of Azithromycin. Cont self-proning, flutter valve and incentive spirometry. Lovenox 50mg BID for DVT prophylaxis. Continue HFNC during the day; BIPAP at night. CO2 on BMP this am dropped slightly, and Cr vivian slightly - no additional lasix today. had a fever, procalcitonin is normal has gotten Lasix, urine is dark, lungs clear, hold on Lasix for today (2) Acute respiratory failure with hypoxia: Plan: 2nd to #1. Continue BIPAP at HS, HFNC during the day, he is on 50L 80% he is compliant with proning no distress at all, sitting up in a chair currently see above (3) Diabetes mellitus type 2, uncontrolled: Plan: New diagnosis. A1C 8.7%. Needs diabetes education and dietary counseling. Pharmacy glycemic team involved; recommendations appreciated. Was on Insulin drip early in his stay then transitioned to basal-bolus SC regimen. Control acceptable at this time monitor for hypoglycemia and hyperglycemia (4) History of thymoma: (5) Fatty liver: Plan: LFTs mildly high but acceptable enought to continue Baricitinib Continue to trend (6) DVT prophylaxis: Plan: lovenox 50mg BID (7) Transaminitis: Plan: likely 2nd to COVID infection. ast/alt mildly high but acceptable cont to trend Admission and Anticipated Discharge Date Admission Date: April 30, 2021 Subjective patient looks great even though he is on 50L and 80% he is sitting up in a chair, breathing comfortably he is eating and drinking more he has a dry cough he watched his daughter graduate today, upset that he could not be there in person reviewed chart and labs he had a fever this morning but procalcitonin is normal Review of Systems Review of Systems: All systems reviewed & are unremarkable except as noted in Subjective Constitutional: + fever, + fatigue and + weakness Respiratory: + cough, + dyspnea and + dyspnea on exertion Physical Exam Physical Exam: General: well developed, well nourished, middle aged man, ill appearing, no distress Neck: supple, trachea midline, normal thyroid Lungs: clear to auscultation bilaterally, + tachypneic, no accessory muscle use, no distress Heart: regular S1 and S2, no murmur, peripheral pulses normal, capillary refill normal, no edema Abdomen: soft, NT, ND, + BS, no hepatomegaly, normal to percussion Extremities: normal in appearance, no cyanosis, no petechiae, strength is 5/5 bilaterally Neuro: awake, cooperative, moves all extremities, no focal motor deficits, CN II-XII intact, sensation in extremities intact, normal speech Skin: warm, dry, no rash, normal turgor Psych: Awake, alert oriented x 3, euthymic affect Results & Data Results & Data ([facility]) Vital Signs (Past 12 Hours) Vital Signs Temp Pulse Pulse Resp BP Pulse Ox 05/06/21 10:27 86 24 88 L 05/06/21 09:16 76 05/06/21 08:06 71 28 H 91 05/06/21 08:01 37.3 C 79 19 121/72 89 L 05/06/21 03:00 73 30 H 97 05/06/21 02:40 38.2 C H 84 24 137/71 100 05/06/21 00:03 36.8 C 76 21 122/59 L 98 05/05/21 23:31 68 27 H 95 Laboratory Results Laboratory Results - last 24 hr 05/05/21 05/05/21 05/05/21 12:04 16:59 20:40 WBC RBC Hgb Hct MCV MCH MCHC RDW Std Deviation RDW Coeff of Wan Plt Count MPV Immature Gran % (Auto) Neut % (Auto) Lymph % (Auto) Randolph % (Auto) Eos % (Auto) Baso % (Auto) Neut # (Auto) Lymph # (Auto) Randolph # (Auto) Eos # (Auto) Baso # (Auto) Immature Gran # (Auto) Sodium Potassium Chloride Carbon Dioxide Anion Gap BUN Creatinine Est Cr Clr Drug Dosing Est GFR ( Amer) Est GFR (Non-Af Amer) BUN/Creatinine Ratio Glucose POC Glucose 190 H 125 H 120 H Calcium AST ALT Procalcitonin 05/06/21 05/06/21 05/06/21 07:57 08:58 08:58 WBC 16.64 H RBC 4.81 Hgb 14.6 Hct 41.3 L MCV 85.9 MCH 30.4 MCHC 35.4 RDW Std Deviation 40.3 RDW Coeff of Wan 12.7 Plt Count 241 MPV 11.2 H Immature Gran % (Auto) 1.5 Neut % (Auto) 89.0 Lymph % (Auto) 4.0 Randolph % (Auto) 4.1 Eos % (Auto) 1.3 Baso % (Auto) 0.1 Neut # (Auto) 14.82 H Lymph # (Auto) 0.66 L Randolph # (Auto) 0.69 H Eos # (Auto) 0.21 Baso # (Auto) 0.01 Immature Gran # (Auto) 0.25 H Sodium 133 L Potassium 4.0 Chloride 102 Carbon Dioxide 22 Anion Gap 10.0 BUN 19 H Creatinine 0.89 Est Cr Clr Drug Dosing 108.4 Est GFR ( Amer) 113.9 Est GFR (Non-Af Amer) 98.3 BUN/Creatinine Ratio 21.0 H Glucose 247 H POC Glucose 129 H Calcium 8.5 AST 85 H ALT 90 H Procalcitonin 05/06/21 08:58 WBC RBC Hgb Hct MCV MCH MCHC RDW Std Deviation RDW Coeff of Wna Plt Count MPV Immature Gran % (Auto) Neut % (Auto) Lymph % (Auto) Randolph % (Auto) Eos % (Auto) Baso % (Auto) Neut # (Auto) Lymph # (Auto) Randolph # (Auto) Eos # (Auto) Baso # (Auto) Immature Gran # (Auto) Sodium Potassium Chloride Carbon Dioxide Anion Gap BUN Creatinine Est Cr Clr Drug Dosing Est GFR ( Amer) Est GFR (Non-Af Amer) BUN/Creatinine Ratio Glucose POC Glucose Calcium AST ALT Procalcitonin 0.25 Medications Administered Current Inpatient Medications Albuterol (Albut/Ipratrop 3mg/0.5mg Neb 3 Ml Vial) 3 ml NEB Q4 PRN PRN Reason: Shortness Of Breath Or Wheezing Stop: 06/02/21 11:59 Ascorbic Acid (Ascorbic Acid 500 Mg Tab) 500 mg PO DAILY ANISHA Stop: 05/30/21 08:59 Last Admin: 05/06/21 07:52 Dose: 500 mg Documented by: Baricitinib (4mg Daily X 14 Days (Egfr >60 Ml/Min/1.73m2)) 4 mg PO DAILY ANISHA; Protocol Stop: 05/14/21 10:59 Last Admin: 05/06/21 07:52 Dose: 4 mg Documented by: Dextrose (Dextrose 50% 50 Ml Syringe) 25 - 50 ml IV UD PRN; Protocol PRN Reason: Hypoglycemia Protocol Stop: 05/30/21 06:32 Last Admin: 05/02/21 05:03 Dose: 25 ml Documented by: Enoxaparin Sodium (Enoxaparin Inj 60 Mg/0.6 Ml Syr) 50 mg SQ Q12H ANISHA Stop: 05/30/21 07:59 Last Admin: 05/06/21 07:55 Dose: 50 mg Documented by: Famotidine (Famotidine 20 Mg Tab) 20 mg PO BID ANISHA Stop: 05/30/21 08:59 Last Admin: 05/06/21 07:53 Dose: 20 mg Documented by: Glucagon (Glucagon For Inj 1 Mg Vial) 1 mg SQ UD PRN; Protocol PRN Reason: Hypoglycemia Protocol Stop: 05/30/21 06:32 Glucose (Glucose 10 Tabs/Tube) 4 - 8 tabs PO UD PRN; Protocol PRN Reason: Hypoglycemia Protocol Stop: 05/30/21 06:32 Glucose (Glucose 40% Gel 15 Gm Tube) 15 - 30 gm PO UD PRN; Protocol PRN Reason: Hypoglycemia Protocol Stop: 05/30/21 06:32 Guaifenesin (Guaifenesin 600 Mg Tabcr) 1,200 mg PO Q12 ANISHA Stop: 05/30/21 08:59 Last Admin: 05/06/21 07:53 Dose: 1,200 mg Documented by: Dexamethasone 6 mg/ Syringe 1.5 mls @ 1 mls/min IV Q24H ANISHA Stop: 05/30/21 08:59 Last Admin: 05/06/21 09:09 Dose: 1 mls/min Documented by: Insulin Aspart (Insulin Aspart Per Unit) 0 units SC ACHS [facility] Stop: 05/30/21 16:29 Last Admin: 05/06/21 09:08 Dose: 16 units Documented by: Insulin Human NPH (Insulin Human Nph) 25 units SC DAILY [facility] Stop: 06/01/21 08:59 Last Admin: 05/06/21 09:08 Dose: 25 units Documented by: Miscellaneous (Carbohydrates For Hypoglycemia ) 15 - 30 gm PO UD PRN PRN Reason: Hypoglycemia Protocol Stop: 05/30/21 06:32 Miscellaneous Information (Pharmacy Glycemic Mgmt Consult) 1 ea N/A UD PRN PRN Reason: Consult Stop: 05/30/21 14:08 Ondansetron HCl (Ondansetron Inj 2 Mg/Ml 2 Ml Vial) 4 mg IV Q6H PRN PRN Reason: Nausea Stop: 05/30/21 06:32 Vitamin B Complex (Vitamin B Complex Tab) 1 tab PO DAILY ANISHA Stop: 05/30/21 08:59 Last Admin: 05/06/21 07:53 Dose: 1 tab Documented by: Vitamin D (Cholecalciferol 1,000 Units 25 Mcg Tab) 1,000 units PO DAILY ANISHA Stop: 05/30/21 08:59 Last Admin: 05/06/21 07:52 Dose: 1,000 units Documented by: Zinc Sulfate (Zinc Sulfate 220 Mg Capsule) 220 mg PO QAM [facility] Stop: 05/30/21 08:59 Last Admin: 05/06/21 07:52 Dose: 220 mg Documented by: PG Care Time/CCT Total # of Minutes Spent Total Time Spent: 33 Total Time Spent with Patient: Total time spent is greater than 50% in coordination of care (as documented) at patient's floor/unit and/or counseling patient: Coding Level of Care Code 89492 Subseq Hosp Care Lvl 2 Diagnoses Pneumonia due to 2019-nCoV U07.1; J12.82 Acute respiratory failure with hypoxia J96.01 History of thymoma Z86.018 Fatty liver K76.0 Diabetes mellitus type 2, uncontrolled E11.65 DVT prophylaxis Z29.9 Transaminitis R74.01
[2021-05-07] MEDS: 4mg Daily x 14 days (eGFR >60 mL/min/1.73m2) PO SCH (08:03)
[2021-05-07] MEDS: VITAMIN B COMPLEX TAB PO SCH (08:03)
[2021-05-07] MEDS: ZINC SULFATE 220 MG CAPSULE PO SCH (08:03)
[2021-05-07] MEDS: CHOLECALCIFEROL 1,000 UNITS 25 MCG TAB PO SCH (08:04)
[2021-05-07] MEDS: ASCORBIC ACID 500 MG TAB PO SCH (08:04)
[2021-05-07] MEDS: ENOXAPARIN INJ 60 MG/0.6 ML SYR SQ SCH ×2 (08:04→21:27)
[2021-05-07] MEDS: FAMOTIDINE 20 MG TAB PO SCH ×2 (08:04→21:27)
[2021-05-07] MEDS: guaiFENesin 600 MG TABCR PO SCH ×2 (08:04→21:27)
[2021-05-07] MEDS: dexAMETHasone 6 MG in SYRINGE 0 ML IV SCH (09:12)
--- NOTE | 2021-05-07 09:32 | XRay Report ---
XR chest 1V portable HISTORY: 51 years-old Male covid, hypoxia acute hypoxia. COVID Positive. COMPARISON: Chest radiograph and CTA chest 04/30/2021 TECHNIQUE: Portable AP view of the chest FINDINGS: Cardiac silhouette is enlarged. No pneumothorax. Mild blunting of the costophrenic angles is unchange d. Extensive bilateral airspace opacities redemonstrated. No pneumothorax or large pleural effusion. No acute fracture. IMPRESSION: No significant change of the extensive bilateral airspace opacities compatible with viral pneumonia. ACT 112: Negative or not required by law. The above report was generated using voice recognition software. It may contain grammatical, syntax o r spelling errors. Electronically signed by: Chino Pace M.D. 05/07/2021 9:31 AM
[2021-05-07] MEDS: INSULIN HUMAN NPH SC SCH (09:53)
[2021-05-07] MEDS: INSULIN ASPART PER UNIT SC SCH ×4 (09:53→21:32)
--- NOTE | 2021-05-07 09:54 | Pharmacy Report ---
Pharmacy Glycemic Short Note 2 - Date of Service May 07, 2021 - Glycemic Short BSG Results (Last 24 hours): 05/06/21 05/06/21 05/06/21 12:01 16:46 20:50 POC Glucose 161 H 76 179 H 05/07/21 07:43 POC Glucose 137 H OUTPATIENT ANTIDIABETIC REGIMEN: * N/A * A1c = 8.7% 05/01/21 ASSESSMENT: 05/07/21 * Patient's BSGs yesterday were 223-321-50-179 mg/dL. Fasting today is 137 mg/dL. * Patient received 57 units of insulin yesterday. * 25 units of basal with NPH for steroid induced hyperglycemia * 22 units of bolus with NovoLog * BSGs well controlled with current orders. All BSGs <180. No changes needed to regimen at this time. 05/05 * Pt has received 47 units of insulin over the past 24hrs * 25 units of basal with NPH for steroid induced hyperglycemia * 22 units of bolus with NovoLog * BSGs well controlled with current orders. All BSGs <180. No changes needed to regimen at this time. 05/02: * BSGs well-controlled yesterday while on insulin infusion * Insulin infusion discontinued this morning due to BSGs below goal range at reasonable insulin infusion rates * Will cover IV dexamethasone with conservative NPH dose and maintain aggressive Novolog parameters 05/01: * Patient admitted for COVID19 viral pneumonia * Severely hyperglycemic on admission, but no prior dx of DM. A1c consistent with DM. Hyperglycemic but not DKA/HHS. * IV insulin infusion started due to addition of IV steroids while already hyperglycemic. Low dose basal insulin also started in attempts to make future transition to SQ regimen easier. * Insulin infusion continues this AM, running steadily at 3.8units/hr with BSGs in goal range. Discussed pt's respiratory and nutritional status w/ RN this AM. Pt quickly desaturates when off BiPAP and likely will not be able to eat much if any today. Will refrain from adding NPH insulin due to uncertain PO intake. Will wait to see response to IV dexamethasone while NPO this AM to determine if NPH would still be appropriate moving forward. Insulin drip remains most appropriate therapy this AM, however may be able to begin transition to SQ later today once more data collected. PLAN FOR INPATIENT GLYCEMIC CONTROL: * Basal insulin * NPH 25 units (~0.25 unit/kg) SQ daily to be given with dexamethasone. * Bolus insulin * NovoLog per scale ACHS or Q6hrs while NPO * Goal Range: Low 110 mg/dL - High 140 mg/dL * Correction Factor: 15 mg/dL/unit * Nutritional / Prandial insulin per carb ratio of 1 unit per 5 grams CHO consumed PLAN FOR DISCHARGE: * HbA1c of 8.7% (05/01/21), reasonable goal for this patient would be less than 7% * Metformin should be started at the time type 2 diabetes is diagnosed unless there are contraindications. Metformin is effective and safe, is inexpensive, and may reduce risk of cardiovascular events and . * B12 supplementation may be necessary with correction metformin use * FDA has revised the label for metformin to reflect its safety in patients with eGFR 30 mL/min or above * Recommend starting: Metformin XR 500mg PO daily with evening meal. Typically the XR formulation of metformin is better tolerated than the immediate release formulation. Continue to titrate metformin dosing upwards as recommended. Dosage increases should be made in increments of 500 mg weekly, up to 2,000 mg/day PO, given in divided doses. Doses above 2000 mg/day may be better tolerated if divided and given 3 times per day with meals. Max: 2,550 mg/day PO, in divided doses * Support Patient Self-Management * Healthy Lifestyle (diet, exercise, and smoking cessation) * Disease self-management (SMBG) * Prevention of complications (BP, Lipid goals, Immunizations) * Consider outpatient Diabetes Self-Management Education & Support * Patient will likely require additional antidiabetic therapy, but would first trial metformin and defer further decision-making to outpatient provider
--- NOTE | 2021-05-07 16:28 | Hospitalist Progress Note ---
Date of Service May 07, 2021 Assessment & Plan (1) Pneumonia due to 2019-nCoV: Plan: Severe, with resulting acute hypoxic respiratory failure. currently on 50L and 70% FiO2 Continue dexamethasone 6 mg IV daily, day #8 today. Continue Baricitinib - day #8 today. CXR 05/07: no significant change compared to 04/30 Completed 5-day course of Remdesivir. Completed 5-day course of Azithromycin. Cont self-proning, flutter valve and incentive spirometry. Lovenox 50mg BID for DVT prophylaxis. Continue HFNC during the day; BIPAP at night. hold Lasix for now, check BMP tomorrow had a fever, procalcitonin is normal (2) Acute respiratory failure with hypoxia: Plan: 2nd to #1. Continue BIPAP at HS, HFNC during the day, he is on 5L 70% he is compliant with proning no distress at all, sitting up in a chair currently see above (3) Diabetes mellitus type 2, uncontrolled: Plan: New diagnosis. A1C 8.7%. Needs diabetes education and dietary counseling. Pharmacy glycemic team involved; recommendations appreciated. Was on Insulin drip early in his stay then transitioned to basal-bolus SC regimen. Control acceptable at this time monitor for hypoglycemia and hyperglycemia, no issues, all sugars are < 200 and no hypoglycemia (4) Fatty liver: Plan: LFTs mildly high but acceptable enought to continue Baricitinib Continue to trend (5) DVT prophylaxis: Plan: lovenox 50mg BID (6) Transaminitis: Plan: likely 2nd to COVID infection. ast/alt mildly high but acceptable cont to trend Admission and Anticipated Discharge Date Admission Date: April 30, 2021 Subjective patient feeling great, he feels so good that he would "walk home now if you would let me" he is on 50L and 70%, sitting upright in a chair eating very well, moving his bowels, making urine no fever, minimal cough he is laying prone several hours a day and at night Review of Systems Review of Systems: All systems reviewed & are unremarkable except as noted in Subjective Respiratory: + cough and + dyspnea on exertion Physical Exam Physical Exam: General: well developed, well nourished, middle aged man, ill appearing, no distress Neck: supple, trachea midline, normal thyroid Lungs: clear to auscultation bilaterally, + tachypneic, no accessory muscle use, no distress Heart: regular S1 and S2, no murmur, peripheral pulses normal, capillary refill normal, no edema Abdomen: soft, NT, ND, + BS, no hepatomegaly, normal to percussion Extremities: normal in appearance, no cyanosis, no petechiae, strength is 5/5 bilaterally Neuro: awake, cooperative, moves all extremities, no focal motor deficits, CN II-XII intact, sensation in extremities intact, normal speech Skin: warm, dry, no rash, normal turgor Psych: Awake, alert oriented x 3, euthymic affect Results & Data Results & Data ([facility]) Vital Signs (Past 12 Hours) Vital Signs Temp Pulse Pulse Resp BP Pulse Ox Pulse Ox 05/07/21 15:53 88 22 93 05/07/21 14:18 76 05/07/21 11:55 37.7 C H 76 19 119/75 92 05/07/21 11:02 86 18 89 L 05/07/21 10:00 93 05/07/21 08:52 74 20 92 05/07/21 07:46 37.9 C H 82 21 132/69 95 Laboratory Results Laboratory Results - last 24 hr 05/06/21 05/06/21 05/07/21 16:46 20:50 07:43 POC Glucose 76 179 H 137 H 05/07/21 11:53 POC Glucose 171 H Medications Administered Current Inpatient Medications Albuterol (Albut/Ipratrop 3mg/0.5mg Neb 3 Ml Vial) 3 ml NEB Q4 PRN PRN Reason: Shortness Of Breath Or Wheezing Stop: 06/02/21 11:59 Ascorbic Acid (Ascorbic Acid 500 Mg Tab) 500 mg PO DAILY ANISHA Stop: 05/30/21 08:59 Last Admin: 05/07/21 08:04 Dose: 500 mg Documented by: Baricitinib (4mg Daily X 14 Days (Egfr >60 Ml/Min/1.73m2)) 4 mg PO DAILY ANISHA; Protocol Stop: 05/14/21 10:59 Last Admin: 05/07/21 08:03 Dose: 4 mg Documented by: Dextrose (Dextrose 50% 50 Ml Syringe) 25 - 50 ml IV UD PRN; Protocol PRN Reason: Hypoglycemia Protocol Stop: 05/30/21 06:32 Last Admin: 05/02/21 05:03 Dose: 25 ml Documented by: Enoxaparin Sodium (Enoxaparin Inj 60 Mg/0.6 Ml Syr) 50 mg SQ Q12H ANISHA Stop: 05/30/21 07:59 Last Admin: 05/07/21 08:04 Dose: 50 mg Documented by: Famotidine (Famotidine 20 Mg Tab) 20 mg PO BID ANISHA Stop: 05/30/21 08:59 Last Admin: 05/07/21 08:04 Dose: 20 mg Documented by: Glucagon (Glucagon For Inj 1 Mg Vial) 1 mg SQ UD PRN; Protocol PRN Reason: Hypoglycemia Protocol Stop: 05/30/21 06:32 Glucose (Glucose 10 Tabs/Tube) 4 - 8 tabs PO UD PRN; Protocol PRN Reason: Hypoglycemia Protocol Stop: 05/30/21 06:32 Glucose (Glucose 40% Gel 15 Gm Tube) 15 - 30 gm PO UD PRN; Protocol PRN Reason: Hypoglycemia Protocol Stop: 05/30/21 06:32 Guaifenesin (Guaifenesin 600 Mg Tabcr) 1,200 mg PO Q12 ANISHA Stop: 05/30/21 08:59 Last Admin: 05/07/21 08:04 Dose: 1,200 mg Documented by: Dexamethasone 6 mg/ Syringe 1.5 mls @ 1 mls/min IV Q24H ANISHA Stop: 05/30/21 08:59 Last Admin: 05/07/21 09:12 Dose: 1 mls/min Documented by: Insulin Aspart (Insulin Aspart Per Unit) 0 units SC ACHS ANISHA Stop: 05/30/21 16:29 Last Admin: 05/07/21 13:14 Dose: 14 units Documented by: Insulin Human NPH (Insulin Human Nph) 25 units SC DAILY ANISHA Stop: 06/01/21 08:59 Last Admin: 05/07/21 09:53 Dose: 25 units Documented by: Miscellaneous (Carbohydrates For Hypoglycemia ) 15 - 30 gm PO UD PRN PRN Reason: Hypoglycemia Protocol Stop: 05/30/21 06:32 Miscellaneous Information (Pharmacy Glycemic Mgmt Consult) 1 ea N/A UD PRN PRN Reason: Consult Stop: 05/30/21 14:08 Ondansetron HCl (Ondansetron Inj 2 Mg/Ml 2 Ml Vial) 4 mg IV Q6H PRN PRN Reason: Nausea Stop: 05/30/21 06:32 Vitamin B Complex (Vitamin B Complex Tab) 1 tab PO DAILY ANISHA Stop: 05/30/21 08:59 Last Admin: 05/07/21 08:03 Dose: 1 tab Documented by: Vitamin D (Cholecalciferol 1,000 Units 25 Mcg Tab) 1,000 units PO DAILY ANISHA Stop: 05/30/21 08:59 Last Admin: 05/07/21 08:04 Dose: 1,000 units Documented by: Zinc Sulfate (Zinc Sulfate 220 Mg Capsule) 220 mg PO QAM ANISHA Stop: 05/30/21 08:59 Last Admin: 05/07/21 08:03 Dose: 220 mg Documented by: PG Care Time/CCT Total # of Minutes Spent Total Time Spent with Patient: Total time spent is greater than 50% in coordination of care (as documented) at patient's floor/unit and/or counseling patient: Coding Level of Care Code 80697 Subseq Hosp Care Lvl 2 Diagnoses Pneumonia due to 2019-nCoV U07.1; J12.82 Acute respiratory failure with hypoxia J96.01 Diabetes mellitus type 2, uncontrolled E11.65 Fatty liver K76.0 DVT prophylaxis Z29.9 Transaminitis R74.01
[2021-05-08 08:09] LABS: Hematocrit (blood only) 42.6 % (42-52); Hemoglobin 14.7 g/dL (14.0-18.0); Mean Corpuscular Hemoglobin 29.9 pg (25-34); Mean Corpuscular Hgb Conc 34.5 g/dL (32-36); Mean Corpuscular Volume 86.6 fL (80-100); Mean Platelet Volume 11.1 fL (7.4-10.4); Platelet Count 298 K/uL (130-400); RDW Coefficient of Variation 12.8 % (11.5-14.5); RDW Standard Deviation 40.7 fL (36.4-46.3); Red Blood Count 4.92 M/uL (4.7-6.1)
[2021-05-08] MEDS: 4mg Daily x 14 days (eGFR >60 mL/min/1.73m2) PO SCH (08:18)
[2021-05-08] MEDS: CHOLECALCIFEROL 1,000 UNITS 25 MCG TAB PO SCH (08:19)
[2021-05-08] MEDS: ASCORBIC ACID 500 MG TAB PO SCH (08:19)
[2021-05-08] MEDS: guaiFENesin 600 MG TABCR PO SCH ×2 (08:19→20:58)
[2021-05-08] MEDS: FAMOTIDINE 20 MG TAB PO SCH ×2 (08:19→20:58)
[2021-05-08] MEDS: ENOXAPARIN INJ 60 MG/0.6 ML SYR SQ SCH ×2 (08:20→20:59)
[2021-05-08] MEDS: ZINC SULFATE 220 MG CAPSULE PO SCH (08:20)
[2021-05-08] MEDS: VITAMIN B COMPLEX TAB PO SCH (08:20)
[2021-05-08] MEDS: dexAMETHasone 6 MG in SYRINGE 0 ML IV SCH (08:22)
[2021-05-08 08:42] LABS: Albumin Level 2.5 gm/dl (3.4-5.0); BUN Creatinine Ratio 19.2 (10-20); Bilirubin,Total 0.7 mg/dl (0.2-1); C Reactive Protein 5.85 mg/dl (0-0.29); Calcium 8.5 mg/dl (8.5-10.1); Creatinine Clr Calc Pharmacy 121.2 ml/min; Est GFR (Non-African American) 102.7 ml/min; Potassium 3.7 mmol/L (3.5-5.1)
[2021-05-08 08:44] LABS: Albumin Globulin Ratio 0.6 (0.9-2); Globulin 4.2 gm/dl (2.5-4.0); Total Protein 6.7 gm/dl (6.4-8.2)
[2021-05-08] MEDS: INSULIN HUMAN NPH SC SCH (09:00)
[2021-05-08] MEDS: INSULIN ASPART PER UNIT SC SCH ×4 (09:00→21:45)
[2021-05-08] MEDS ORDERED: FUROSEMIDE INJ 20 MG/2 ML VIAL IV ONE (09:42)
--- NOTE | 2021-05-08 12:25 | Hospitalist Progress Note ---
Date of Service May 08, 2021 Assessment & Plan (1) Pneumonia due to 2019-nCoV: Plan: Severe, with resulting acute hypoxic respiratory failure. still on 50L and 70% FiO2 Continue dexamethasone 6 mg IV daily, day #9 today CRP is 5 today, if no improvement in high flow tomorrow then will increase dexamethasone to 20mg Continue Baricitinib - day #9 today. CXR 05/07: no significant change compared to 04/30 Completed 5-day course of Remdesivir. Completed 5-day course of Azithromycin. Cont self-proning, flutter valve and incentive spirometry. Lovenox 50mg BID for DVT prophylaxis. Continue HFNC during the day; BIPAP at night. Cr is stable, give Lasix 20mg IV qAM to keep negative fluid balance had a fever, procalcitonin is normal (2) Acute respiratory failure with hypoxia: Plan: 2nd to #1. Continue BIPAP at HS, HFNC during the day, he is on 50L 70% he is compliant with proning no distress at all, sitting up in a chair currently see above (3) Diabetes mellitus type 2, uncontrolled: Plan: New diagnosis. A1C 8.7%. Needs diabetes education and dietary counseling. Pharmacy glycemic team involved; recommendations appreciated. Was on Insulin drip early in his stay then transitioned to basal-bolus SC regimen. Control acceptable at this time monitor for hypoglycemia and hyperglycemia, no issues, all sugars are < 200 and no hypoglycemia (4) Fatty liver: Plan: LFTs mildly high but acceptable enough to continue Baricitinib AST 92 and ALT 117 today (5) Transaminitis: Plan: see above (6) DVT prophylaxis: Plan: lovenox 50mg BID Admission and Anticipated Discharge Date Admission Date: April 30, 2021 Subjective patient continues to feel fine eating and sleeping well making a lot of urine after Lasix 20mg IV this morning CR is stable, CRP is still elevated at 5 K is stable, CBC stable discussed possibly increasing dexamethasone tomorrow Review of Systems Review of Systems: All systems reviewed & are unremarkable except as noted in Subjective Respiratory: + cough, + dyspnea and + dyspnea on exertion Physical Exam Physical Exam: General: well developed, well nourished, middle aged man, ill appearing, no distress Neck: supple, trachea midline, normal thyroid Lungs: clear to auscultation bilaterally, + tachypneic, no accessory muscle use, no distress Heart: regular S1 and S2, no murmur, peripheral pulses normal, capillary refill normal, no edema Abdomen: soft, NT, ND, + BS, no hepatomegaly, normal to percussion Extremities: normal in appearance, no cyanosis, no petechiae, strength is 5/5 bilaterally Neuro: awake, cooperative, moves all extremities, no focal motor deficits, CN II-XII intact, sensation in extremities intact, normal speech Skin: warm, dry, no rash, normal turgor Psych: Awake, alert oriented x 3, euthymic affect Results & Data Results & Data ([facility]) Vital Signs (Past 12 Hours) Vital Signs Temp Pulse Resp BP Pulse Ox Pulse Ox 05/08/21 11:34 36.8 C 93 H 22 127/75 93 05/08/21 11:31 81 15 92 05/08/21 11:00 93 05/08/21 08:36 101 H 18 91 05/08/21 07:30 37.2 C 75 18 116/66 90 05/08/21 03:23 36.9 C 72 16 112/60 90 05/08/21 03:01 76 14 94 Laboratory Results Laboratory Results - last 24 hr 05/07/21 05/07/21 05/08/21 16:56 20:56 07:40 WBC 15.10 H RBC 4.92 Hgb 14.7 Hct 42.6 MCV 86.6 MCH 29.9 MCHC 34.5 RDW Std Deviation 40.7 RDW Coeff of Wan 12.8 Plt Count 298 MPV 11.1 H Sodium Potassium Chloride Carbon Dioxide Anion Gap BUN Creatinine Est Cr Clr Drug Dosing Est GFR ( Amer) Est GFR (Non-Af Amer) BUN/Creatinine Ratio Glucose POC Glucose 171 H 115 H Calcium Total Bilirubin AST ALT Alkaline Phosphatase C-Reactive Protein Total Protein Albumin Globulin Albumin/Globulin Ratio 05/08/21 05/08/21 05/08/21 07:40 07:54 11:51 WBC RBC Hgb Hct MCV MCH MCHC RDW Std Deviation RDW Coeff of Wan Plt Count MPV Sodium 135 L Potassium 3.7 Chloride 102 Carbon Dioxide 27 Anion Gap 6.0 BUN 15 Creatinine 0.80 Est Cr Clr Drug Dosing 121.2 Est GFR ( Amer) 119.0 Est GFR (Non-Af Amer) 102.7 BUN/Creatinine Ratio 19.2 Glucose 111 H POC Glucose 107 H 164 H Calcium 8.5 Total Bilirubin 0.7 AST 92 H ALT 117 H Alkaline Phosphatase 116 C-Reactive Protein 5.85 H Total Protein 6.7 Albumin 2.5 L Globulin 4.2 H Albumin/Globulin Ratio 0.6 L Medications Administered Current Inpatient Medications Albuterol (Albut/Ipratrop 3mg/0.5mg Neb 3 Ml Vial) 3 ml NEB Q4 PRN PRN Reason: Shortness Of Breath Or Wheezing Stop: 06/02/21 11:59 Ascorbic Acid (Ascorbic Acid 500 Mg Tab) 500 mg PO DAILY [facility] Stop: 05/30/21 08:59 Last Admin: 05/08/21 08:19 Dose: 500 mg Documented by: Baricitinib (4mg Daily X 14 Days (Egfr >60 Ml/Min/1.73m2)) 4 mg PO DAILY [facility]; Protocol Stop: 05/14/21 10:59 Last Admin: 05/08/21 08:18 Dose: 4 mg Documented by: Dextrose (Dextrose 50% 50 Ml Syringe) 25 - 50 ml IV UD PRN; Protocol PRN Reason: Hypoglycemia Protocol Stop: 05/30/21 06:32 Last Admin: 05/02/21 05:03 Dose: 25 ml Documented by: Enoxaparin Sodium (Enoxaparin Inj 60 Mg/0.6 Ml Syr) 50 mg SQ Q12H [facility] Stop: 05/30/21 07:59 Last Admin: 05/08/21 08:20 Dose: 50 mg Documented by: Famotidine (Famotidine 20 Mg Tab) 20 mg PO BID [facility] Stop: 05/30/21 08:59 Last Admin: 05/08/21 08:19 Dose: 20 mg Documented by: Glucagon (Glucagon For Inj 1 Mg Vial) 1 mg SQ UD PRN; Protocol PRN Reason: Hypoglycemia Protocol Stop: 05/30/21 06:32 Glucose (Glucose 10 Tabs/Tube) 4 - 8 tabs PO UD PRN; Protocol PRN Reason: Hypoglycemia Protocol Stop: 05/30/21 06:32 Glucose (Glucose 40% Gel 15 Gm Tube) 15 - 30 gm PO UD PRN; Protocol PRN Reason: Hypoglycemia Protocol Stop: 05/30/21 06:32 Guaifenesin (Guaifenesin 600 Mg Tabcr) 1,200 mg PO Q12 [facility] Stop: 05/30/21 08:59 Last Admin: 05/08/21 08:19 Dose: 1,200 mg Documented by: Dexamethasone 6 mg/ Syringe 1.5 mls @ 1 mls/min IV Q24H [facility] Stop: 05/30/21 08:59 Last Admin: 05/08/21 08:22 Dose: 1 mls/min Documented by: Insulin Aspart (Insulin Aspart Per Unit) 0 units SC ACHS [facility] Stop: 05/30/21 16:29 Last Admin: 05/08/21 09:00 Dose: 15 units Documented by: Insulin Human NPH (Insulin Human Nph) 25 units SC DAILY [facility] Stop: 06/01/21 08:59 Last Admin: 05/08/21 09:00 Dose: 25 units Documented by: Miscellaneous (Carbohydrates For Hypoglycemia ) 15 - 30 gm PO UD PRN PRN Reason: Hypoglycemia Protocol Stop: 05/30/21 06:32 Miscellaneous Information (Pharmacy Glycemic Mgmt Consult) 1 ea N/A UD PRN PRN Reason: Consult Stop: 05/30/21 14:08 Ondansetron HCl (Ondansetron Inj 2 Mg/Ml 2 Ml Vial) 4 mg IV Q6H PRN PRN Reason: Nausea Stop: 05/30/21 06:32 Vitamin B Complex (Vitamin B Complex Tab) 1 tab PO DAILY [facility] Stop: 05/30/21 08:59 Last Admin: 05/08/21 08:20 Dose: 1 tab Documented by: Vitamin D (Cholecalciferol 1,000 Units 25 Mcg Tab) 1,000 units PO DAILY [facility] Stop: 05/30/21 08:59 Last Admin: 05/08/21 08:19 Dose: 1,000 units Documented by: Zinc Sulfate (Zinc Sulfate 220 Mg Capsule) 220 mg PO QAM [facility] Stop: 05/30/21 08:59 Last Admin: 05/08/21 08:20 Dose: 220 mg Documented by: PG Care Time/CCT Total # of Minutes Spent Total Time Spent with Patient: Total time spent is greater than 50% in coordination of care (as documented) at patient's floor/unit and/or counseling patient: Coding Level of Care Code 82355 Subseq Hosp Care Lvl 2 Diagnoses Pneumonia due to 2019-nCoV U07.1; J12.82 Acute respiratory failure with hypoxia J96.01 Diabetes mellitus type 2, uncontrolled E11.65 Fatty liver K76.0 DVT prophylaxis Z29.9 Transaminitis R74.01
[2021-05-09] MEDS: 4mg Daily x 14 days (eGFR >60 mL/min/1.73m2) PO SCH (08:11)
[2021-05-09] MEDS: VITAMIN B COMPLEX TAB PO SCH (08:12)
[2021-05-09] MEDS: ZINC SULFATE 220 MG CAPSULE PO SCH (08:12)
[2021-05-09] MEDS: guaiFENesin 600 MG TABCR PO SCH ×2 (08:12→20:23)
[2021-05-09] MEDS: ASCORBIC ACID 500 MG TAB PO SCH (08:12)
[2021-05-09] MEDS: FAMOTIDINE 20 MG TAB PO SCH ×2 (08:13→20:23)
[2021-05-09] MEDS: FUROSEMIDE INJ 20 MG/2 ML VIAL IV SCH (08:13)
[2021-05-09] MEDS: CHOLECALCIFEROL 1,000 UNITS 25 MCG TAB PO SCH (08:13)
[2021-05-09] MEDS: ENOXAPARIN INJ 60 MG/0.6 ML SYR SQ SCH ×2 (08:14→20:23)
[2021-05-09] MEDS: INSULIN ASPART PER UNIT SC SCH ×4 (08:24→20:31)
[2021-05-09] MEDS ORDERED: INSULIN HUMAN NPH SC SCH (09:00)
[2021-05-09] MEDS ORDERED: dexAMETHasone 20 MG in SYRINGE 0 ML IV SCH (09:00)
--- NOTE | 2021-05-09 09:01 | Hospitalist Progress Note ---
Date of Service May 09, 2021 Assessment & Plan (1) Pneumonia due to 2019-nCoV: Plan: Severe, with resulting acute hypoxic respiratory failure. downt to 40L and 70% FiO2 completed 9 days of dexamethasone 6mg IV, no significant improvement now on day 10 increase dexamethasone to 20mg IV x 5 days then 10mg x 5 days Continue Baricitinib - day #10 today. CXR 05/07: no significant change compared to 04/30 Completed 5-day course of Remdesivir. Completed 5-day course of Azithromycin. Cont self-proning, flutter valve and incentive spirometry. Lovenox 50mg BID for DVT prophylaxis. Continue HFNC during the day; BIPAP at night. Cr is stable, give Lasix 20mg IV qAM to keep negative fluid balance, making a lot of urine in the morning had a fever, procalcitonin is normal (2) Acute respiratory failure with hypoxia: Plan: 2nd to #1. Continue BIPAP at HS, HFNC during the day, he is on 40 70% this morning he is compliant with proning no distress at all, sitting up in a chair currently see above (3) Diabetes mellitus type 2, uncontrolled: Plan: New diagnosis. A1C 8.7%. Needs diabetes education and dietary counseling. Pharmacy glycemic team involved; recommendations appreciated. Was on Insulin drip early in his stay then transitioned to basal-bolus SC regimen. Control acceptable at this time monitor for hypoglycemia and hyperglycemia, no issues, all sugars are < 200 and no hypoglycemia increase NPH to 40 with increase in dexamethasone to 20mg (4) Fatty liver: Plan: LFTs mildly high but acceptable enough to continue Baricitinib AST 92 and ALT 117 yesterday (5) Transaminitis: Plan: see above (6) DVT prophylaxis: Plan: lovenox 50mg BID Admission and Anticipated Discharge Date Admission Date: April 30, 2021 Subjective patient says he feels more congested this morning, coughing more, no sputum production no rhonchi on exam eating and drinking well, making urine, moving his bowels down to 40L 70% will increase dexamethasone he agrees to trying Codeine for cough as it is dry and just bothersome, not helpful Review of Systems Review of Systems: All systems reviewed & are unremarkable except as noted in Subjective Respiratory: + cough, + chest congestion, + dyspnea and + dyspnea on exertion Physical Exam Physical Exam: General: well developed, well nourished, middle aged man, ill appearing, no distress Neck: supple, trachea midline, normal thyroid Lungs: clear to auscultation bilaterally, + tachypneic, no accessory muscle use, no distress Heart: regular S1 and S2, no murmur, peripheral pulses normal, capillary refill normal, no edema Abdomen: soft, NT, ND, + BS, no hepatomegaly, normal to percussion Extremities: normal in appearance, no cyanosis, no petechiae, strength is 5/5 bilaterally Neuro: awake, cooperative, moves all extremities, no focal motor deficits, CN II-XII intact, sensation in extremities intact, normal speech Skin: warm, dry, no rash, normal turgor Psych: Awake, alert oriented x 3, euthymic affect Results & Data Results & Data ([facility]) Vital Signs (Past 12 Hours) Vital Signs Temp Pulse Pulse Resp BP BP Pulse Ox 05/09/21 07:51 37.0 C 71 24 93/57 L 92 05/09/21 07:22 78 20 88 L 05/09/21 03:46 95 H 18 91 05/09/21 03:36 37.6 C H 87 20 112/71 90 05/09/21 01:05 74 18 94 05/08/21 23:00 72 05/08/21 22:40 37.9 C H 79 17 128/59 L 92 Laboratory Results Laboratory Results - last 24 hr 05/08/21 05/08/21 05/08/21 11:51 16:40 20:55 POC Glucose 164 H 119 H 154 H 05/09/21 07:49 POC Glucose 119 H Medications Administered Current Inpatient Medications Albuterol (Albut/Ipratrop 3mg/0.5mg Neb 3 Ml Vial) 3 ml NEB Q4 PRN PRN Reason: Shortness Of Breath Or Wheezing Stop: 06/02/21 11:59 Ascorbic Acid (Ascorbic Acid 500 Mg Tab) 500 mg PO DAILY [facility] Stop: 05/30/21 08:59 Last Admin: 05/09/21 08:12 Dose: 500 mg Documented by: Baricitinib (4mg Daily X 14 Days (Egfr >60 Ml/Min/1.73m2)) 4 mg PO DAILY [facility]; Protocol Stop: 05/14/21 10:59 Last Admin: 05/09/21 08:11 Dose: 4 mg Documented by: Dextrose (Dextrose 50% 50 Ml Syringe) 25 - 50 ml IV UD PRN; Protocol PRN Reason: Hypoglycemia Protocol Stop: 05/30/21 06:32 Last Admin: 05/02/21 05:03 Dose: 25 ml Documented by: Enoxaparin Sodium (Enoxaparin Inj 60 Mg/0.6 Ml Syr) 50 mg SQ Q12H [facility] Stop: 05/30/21 07:59 Last Admin: 05/09/21 08:14 Dose: 50 mg Documented by: Famotidine (Famotidine 20 Mg Tab) 20 mg PO BID [facility] Stop: 05/30/21 08:59 Last Admin: 05/09/21 08:13 Dose: 20 mg Documented by: Furosemide (Furosemide Inj 20 Mg/2 Ml Vial) 20 mg IV QAM [facility] Stop: 06/08/21 08:59 Last Admin: 05/09/21 08:13 Dose: 20 mg Documented by: Glucagon (Glucagon For Inj 1 Mg Vial) 1 mg SQ UD PRN; Protocol PRN Reason: Hypoglycemia Protocol Stop: 05/30/21 06:32 Glucose (Glucose 10 Tabs/Tube) 4 - 8 tabs PO UD PRN; Protocol PRN Reason: Hypoglycemia Protocol Stop: 05/30/21 06:32 Glucose (Glucose 40% Gel 15 Gm Tube) 15 - 30 gm PO UD PRN; Protocol PRN Reason: Hypoglycemia Protocol Stop: 05/30/21 06:32 Guaifenesin (Guaifenesin 600 Mg Tabcr) 1,200 mg PO Q12 [facility] Stop: 05/30/21 08:59 Last Admin: 05/09/21 08:12 Dose: 1,200 mg Documented by: Dexamethasone 20 mg/ Dextrose 30 mls @ 60 mls/hr IV DAILY@0900 [facility] Stop: 06/08/21 08:59 Insulin Aspart (Insulin Aspart Per Unit) 0 units SC ACHS [facility] Stop: 05/30/21 16:29 Last Admin: 05/09/21 08:24 Dose: 15 units Documented by: Insulin Human NPH (Insulin Human Nph) 40 units SC DAILY [facility] Stop: 06/08/21 08:59 Last Admin: 05/09/21 08:15 Dose: 40 units Documented by: Miscellaneous (Carbohydrates For Hypoglycemia ) 15 - 30 gm PO UD PRN PRN Reason: Hypoglycemia Protocol Stop: 05/30/21 06:32 Miscellaneous Information (Pharmacy Glycemic Mgmt Consult) 1 ea N/A UD PRN PRN Reason: Consult Stop: 05/30/21 14:08 Ondansetron HCl (Ondansetron Inj 2 Mg/Ml 2 Ml Vial) 4 mg IV Q6H PRN PRN Reason: Nausea Stop: 05/30/21 06:32 Vitamin B Complex (Vitamin B Complex Tab) 1 tab PO DAILY [facility] Stop: 05/30/21 08:59 Last Admin: 05/09/21 08:12 Dose: 1 tab Documented by: Vitamin D (Cholecalciferol 1,000 Units 25 Mcg Tab) 1,000 units PO DAILY [facility] Stop: 05/30/21 08:59 Last Admin: 05/09/21 08:13 Dose: 1,000 units Documented by: Zinc Sulfate (Zinc Sulfate 220 Mg Capsule) 220 mg PO QAM [facility] Stop: 05/30/21 08:59 Last Admin: 05/09/21 08:12 Dose: 220 mg Documented by: PG Care Time/CCT Total # of Minutes Spent Total Time Spent with Patient: Total time spent is greater than 50% in coordination of care (as documented) at patient's floor/unit and/or counseling patient: Coding Level of Care Code 54687 Subseq Hosp Care Lvl 3 Diagnoses Pneumonia due to 2019-nCoV U07.1; J12.82 Acute respiratory failure with hypoxia J96.01 Diabetes mellitus type 2, uncontrolled E11.65 Fatty liver K76.0 Transaminitis R74.01 DVT prophylaxis Z29.9
[2021-05-09] MEDS: dexAMETHasone 20 MG in DEXTROSE 5% 25 ML IV SCH (09:22)
--- NOTE | 2021-05-09 11:00 | Pharmacy Report ---
Pharmacy Glycemic Short Note 2 - Date of Service May 09, 2021 - Glycemic Short BSG Results (Last 24 hours): 05/08/21 05/08/21 05/08/21 11:51 16:40 20:55 POC Glucose 164 H 119 H 154 H 05/09/21 07:49 POC Glucose 119 H OUTPATIENT ANTIDIABETIC REGIMEN: * N/A * A1c = 8.7% 05/01/21 ASSESSMENT: 05/09: * Pt received total of 64 units of insulin yesterday: 25 units basal and 39 units bolus. * Fasting BSG today was 119 mg/dl. * IV Dexamethasone increased from 6 mg yesterday to 20 mg daily this AM. NPH dose therefore increased to 40 units (0.4 units/kg) to be given with IV Dex. May need adjusted further depending on how BSGs trend in the evening. * Novolog CR tightened slightly with breakfast. 05/07/21 * Patient's BSGs yesterday were [phone] mg/dL. Fasting today is 137 mg/dL. * Patient received 57 units of insulin yesterday. * 25 units of basal with NPH for steroid induced hyperglycemia * 22 units of bolus with NovoLog * BSGs well controlled with current orders. All BSGs <180. No changes needed to regimen at this time. 05/05 * Pt has received 47 units of insulin over the past 24hrs * 25 units of basal with NPH for steroid induced hyperglycemia * 22 units of bolus with NovoLog * BSGs well controlled with current orders. All BSGs <180. No changes needed to regimen at this time. 05/02: * BSGs well-controlled yesterday while on insulin infusion * Insulin infusion discontinued this morning due to BSGs below goal range at reasonable insulin infusion rates * Will cover IV dexamethasone with conservative NPH dose and maintain aggressive Novolog parameters 05/01: * Patient admitted for COVID19 viral pneumonia * Severely hyperglycemic on admission, but no prior dx of DM. A1c consistent with DM. Hyperglycemic but not DKA/HHS. * IV insulin infusion started due to addition of IV steroids while already hyperglycemic. Low dose basal insulin also started in attempts to make future transition to SQ regimen easier. * Insulin infusion continues this AM, running steadily at 3.8units/hr with BSGs in goal range. Discussed pt's respiratory and nutritional status w/ RN this AM. Pt quickly desaturates when off BiPAP and likely will not be able to eat much if any today. Will refrain from adding NPH insulin due to uncertain PO intake. Will wait to see response to IV dexamethasone while NPO this AM to determine if NPH would still be appropriate moving forward. Insulin drip remains most appropriate therapy this AM, however may be able to begin transition to SQ later today once more data collected. PLAN FOR INPATIENT GLYCEMIC CONTROL: * Basal insulin: increased * NPH 40 units (0.4 unit/kg) SQ daily to be given with IV dexamethasone 20mg * Bolus insulin: tightened CR * NovoLog per scale ACHS or Q6hrs while NPO * Goal Range: Low 110 mg/dL - High 140 mg/dL * Correction Factor: 15 mg/dL/unit * Nutritional / Prandial insulin per carb ratio of 1 unit per 4.5 grams CHO consumed PLAN FOR DISCHARGE: * HbA1c of 8.7% (05/01/21), reasonable goal for this patient would be less than 7% * Metformin should be started at the time type 2 diabetes is diagnosed unless there are contraindications. Metformin is effective and safe, is inexpensive, and may reduce risk of cardiovascular events and . * B12 supplementation may be necessary with fdc metformin use * FDA has revised the label for metformin to reflect its safety in patients with eGFR 30 mL/min or above * Recommend starting: Metformin XR 500mg PO daily with evening meal. Typically the XR formulation of metformin is better tolerated than the immediate release formulation. Continue to titrate metformin dosing upwards as recommended. Dosage increases should be made in increments of 500 mg weekly, up to 2,000 mg/day PO, given in divided doses. Doses above 2000 mg/day may be better tolerated if divided and given 3 times per day with meals. Max: 2,550 mg/day PO, in divided doses * Support Patient Self-Management * Healthy Lifestyle (diet, exercise, and smoking cessation) * Disease self-management (SMBG) * Prevention of complications (BP, Lipid goals, Immunizations) * Consider outpatient Diabetes Self-Management Education & Support * Patient will likely require additional antidiabetic therapy, but would first trial metformin and defer further decision-making to outpatient provider
[2021-05-09] MEDS ORDERED: IBUPROFEN 200 MG TAB PO PRN (11:16)
[2021-05-09] MEDS: ACETAMINOPHEN 325 MG TAB PO PRN (11:45)
[2021-05-10 08:52] LABS: Creatinine Clr Calc Pharmacy 107.3 ml/min; Est GFR (African American) 114.5 ml/min; Est GFR (Non-African American) 98.8 ml/min
[2021-05-10] MEDS: VITAMIN B COMPLEX TAB PO SCH (08:54)
[2021-05-10] MEDS: ZINC SULFATE 220 MG CAPSULE PO SCH (08:54)
[2021-05-10] MEDS: 4mg Daily x 14 days (eGFR >60 mL/min/1.73m2) PO SCH (08:54)
[2021-05-10] MEDS: ASCORBIC ACID 500 MG TAB PO SCH (08:55)
[2021-05-10] MEDS: CHOLECALCIFEROL 1,000 UNITS 25 MCG TAB PO SCH (08:55)
[2021-05-10] MEDS: FAMOTIDINE 20 MG TAB PO SCH ×2 (08:55→21:27)
[2021-05-10] MEDS: FUROSEMIDE INJ 20 MG/2 ML VIAL IV SCH (08:56)
[2021-05-10] MEDS: ENOXAPARIN INJ 60 MG/0.6 ML SYR SQ SCH ×2 (08:56→21:28)
[2021-05-10] MEDS: guaiFENesin 600 MG TABCR PO SCH ×2 (08:56→21:28)
[2021-05-10] MEDS: dexAMETHasone 20 MG in DEXTROSE 5% 25 ML IV SCH (09:04)
[2021-05-10] MEDS: INSULIN HUMAN NPH SC SCH (09:13)
[2021-05-10] MEDS: INSULIN ASPART PER UNIT SC SCH ×4 (09:13→21:28)
--- NOTE | 2021-05-10 09:48 | Hospitalist Progress Note ---
Date of Service May 10, 2021 Assessment & Plan (1) Pneumonia due to 2019-nCoV: Plan: Severe, with resulting acute hypoxic respiratory failure. downt to 40L and 65% FiO2 completed 9 days of dexamethasone 6mg IV, no significant improvement 05/09: increased dexamethasone to 20mg IV x 5 days then 10mg x 5 days Continue Baricitinib - day #11 today. CXR 05/07: no significant change compared to 04/30 Completed 5-day course of Remdesivir. Completed 5-day course of Azithromycin. Cont self-proning, flutter valve and incentive spirometry. Lovenox 50mg BID for DVT prophylaxis. Continue HFNC during the day; BIPAP at night. Cr is stable, give Lasix 20mg IV qAM to keep negative fluid balance, making a lot of urine in the morning had a fever, procalcitonin is normal (2) Acute respiratory failure with hypoxia: Plan: 2nd to #1. Continue BIPAP at HS, HFNC during the day, he is on 40L 65% this morning he is compliant with proning no distress at all, sitting up in a chair currently see above (3) Diabetes mellitus type 2, uncontrolled: Plan: New diagnosis. A1C 8.7%. Needs diabetes education and dietary counseling. Pharmacy glycemic team involved; recommendations appreciated. Was on Insulin drip early in his stay then transitioned to basal-bolus SC regimen. Control acceptable at this time increase NPH to 40 with increase in dexamethasone to 20mg sugar went to 280 yesterday will watch (4) Fatty liver: Plan: LFTs mildly high but acceptable enough to continue Baricitinib AST 92 and ALT 117 yesterday (5) Transaminitis: Plan: see above (6) DVT prophylaxis: Plan: lovenox 50mg BID Admission and Anticipated Discharge Date Admission Date: April 30, 2021 Subjective patient is really upset that he is not getting better faster still on 40L and 65%, has a cough that is loosening up he is eating, ambulating, making urine with lasix just doesn't understand why he is not getting better faster I told him realistically he will be here another week, he has already been here 11 days Review of Systems Review of Systems: All systems reviewed & are unremarkable except as noted in Subjective Respiratory: + cough, + dyspnea and + dyspnea on exertion Physical Exam Physical Exam: General: well developed, well nourished, middle aged man, ill appearing, no distress Neck: supple, trachea midline, normal thyroid Lungs: clear to auscultation bilaterally, + tachypneic, no accessory muscle use, no distress Heart: regular S1 and S2, no murmur, peripheral pulses normal, capillary refill normal, no edema Abdomen: soft, NT, ND, + BS, no hepatomegaly, normal to percussion Extremities: normal in appearance, no cyanosis, no petechiae, strength is 5/5 bilaterally Neuro: awake, cooperative, moves all extremities, no focal motor deficits, CN II-XII intact, sensation in extremities intact, normal speech Skin: warm, dry, no rash, normal turgor Psych: Awake, alert oriented x 3, euthymic affect Results & Data Results & Data ([facility]) Vital Signs (Past 12 Hours) Vital Signs Temp Pulse Pulse Resp BP BP Pulse Ox 05/10/21 08:22 76 20 05/10/21 07:14 36.3 C L 63 16 121/61 92 05/10/21 05:19 36.7 C 72 22 115/68 90 05/10/21 03:36 61 15 91 05/10/21 00:05 112 H 05/09/21 22:56 36.9 C 76 20 114/56 L 88 L 05/09/21 22:33 88 19 91 Laboratory Results Laboratory Results - last 24 hr 05/09/21 05/09/21 05/09/21 11:56 16:46 20:28 Creatinine Est Cr Clr Drug Dosing Est GFR ( Amer) Est GFR (Non-Af Amer) POC Glucose 194 H 282 H 123 H 05/10/21 05/10/21 07:31 07:44 Creatinine 0.88 Est Cr Clr Drug Dosing 107.3 Est GFR ( Amer) 114.5 Est GFR (Non-Af Amer) 98.8 POC Glucose 96 Medications Administered Current Inpatient Medications Acetaminophen (Acetaminophen 325 Mg Tab) 650 mg PO Q4H PRN PRN Reason: Headache Stop: 06/08/21 11:15 Last Admin: 05/09/21 11:45 Dose: 650 mg Documented by: Albuterol (Albut/Ipratrop 3mg/0.5mg Neb 3 Ml Vial) 3 ml NEB Q4 PRN PRN Reason: Shortness Of Breath Or Wheezing Stop: 06/02/21 11:59 Ascorbic Acid (Ascorbic Acid 500 Mg Tab) 500 mg PO DAILY [facility] Stop: 05/30/21 08:59 Last Admin: 05/10/21 08:55 Dose: 500 mg Documented by: Baricitinib (4mg Daily X 14 Days (Egfr >60 Ml/Min/1.73m2)) 4 mg PO DAILY ANISHA; Protocol Stop: 05/14/21 10:59 Last Admin: 05/10/21 08:54 Dose: 4 mg Documented by: Dextrose (Dextrose 50% 50 Ml Syringe) 25 - 50 ml IV UD PRN; Protocol PRN Reason: Hypoglycemia Protocol Stop: 05/30/21 06:32 Last Admin: 05/02/21 05:03 Dose: 25 ml Documented by: Enoxaparin Sodium (Enoxaparin Inj 60 Mg/0.6 Ml Syr) 50 mg SQ Q12H [facility] Stop: 05/30/21 07:59 Last Admin: 05/10/21 08:56 Dose: 50 mg Documented by: Famotidine (Famotidine 20 Mg Tab) 20 mg PO BID [facility] Stop: 05/30/21 08:59 Last Admin: 05/10/21 08:55 Dose: 20 mg Documented by: Furosemide (Furosemide Inj 20 Mg/2 Ml Vial) 20 mg IV QAM [facility] Stop: 06/08/21 08:59 Last Admin: 05/10/21 08:56 Dose: 20 mg Documented by: Glucagon (Glucagon For Inj 1 Mg Vial) 1 mg SQ UD PRN; Protocol PRN Reason: Hypoglycemia Protocol Stop: 05/30/21 06:32 Glucose (Glucose 10 Tabs/Tube) 4 - 8 tabs PO UD PRN; Protocol PRN Reason: Hypoglycemia Protocol Stop: 05/30/21 06:32 Glucose (Glucose 40% Gel 15 Gm Tube) 15 - 30 gm PO UD PRN; Protocol PRN Reason: Hypoglycemia Protocol Stop: 05/30/21 06:32 Guaifenesin (Guaifenesin 600 Mg Tabcr) 1,200 mg PO Q12 [facility] Stop: 05/30/21 08:59 Last Admin: 05/10/21 08:56 Dose: 1,200 mg Documented by: Guaifenesin/Codeine Phosphate (Guaifenesin/Codeine 200mg/20mg 10ml Udc) 10 ml PO Q6H PRN PRN Reason: Cough Stop: 06/08/21 09:04 Dexamethasone 20 mg/ Dextrose 30 mls @ 60 mls/hr IV DAILY@0900 [facility] Stop: 06/08/21 08:59 Last Admin: 05/10/21 09:04 Dose: 50 mls/hr Documented by: Ibuprofen (Ibuprofen 200 Mg Tab) 400 mg PO TID PRN PRN Reason: Headache Stop: 06/08/21 11:15 Insulin Aspart (Insulin Aspart Per Unit) 0 units SC ACHS [facility] Stop: 05/30/21 16:29 Last Admin: 05/10/21 09:13 Dose: 13 units Documented by: Insulin Human NPH (Insulin Human Nph) 45 units SC DAILY [facility] Stop: 06/09/21 08:59 Last Admin: 05/10/21 09:13 Dose: 45 units Documented by: Miscellaneous (Carbohydrates For Hypoglycemia ) 15 - 30 gm PO UD PRN PRN Reason: Hypoglycemia Protocol Stop: 05/30/21 06:32 Miscellaneous Information (Pharmacy Glycemic Mgmt Consult) 1 ea N/A UD PRN PRN Reason: Consult Stop: 05/30/21 14:08 Ondansetron HCl (Ondansetron Inj 2 Mg/Ml 2 Ml Vial) 4 mg IV Q6H PRN PRN Reason: Nausea Stop: 05/30/21 06:32 Vitamin B Complex (Vitamin B Complex Tab) 1 tab PO DAILY [facility] Stop: 05/30/21 08:59 Last Admin: 05/10/21 08:54 Dose: 1 tab Documented by: Vitamin D (Cholecalciferol 1,000 Units 25 Mcg Tab) 1,000 units PO DAILY [facility] Stop: 05/30/21 08:59 Last Admin: 05/10/21 08:55 Dose: 1,000 units Documented by: Zinc Sulfate (Zinc Sulfate 220 Mg Capsule) 220 mg PO QAM [facility] Stop: 05/30/21 08:59 Last Admin: 05/10/21 08:54 Dose: 220 mg Documented by: PG Care Time/CCT Total # of Minutes Spent Total Time Spent with Patient: Total time spent is greater than 50% in coordination of care (as documented) at patient's floor/unit and/or counseling patient: Coding Level of Care Code 43395 Subseq Hosp Care Lvl 2 Diagnoses Pneumonia due to 2019-nCoV U07.1; J12.82 Acute respiratory failure with hypoxia J96.01 Diabetes mellitus type 2, uncontrolled E11.65 Fatty liver K76.0 Transaminitis R74.01 DVT prophylaxis Z29.9
--- NOTE | 2021-05-10 10:53 | Pharmacy Report ---
Pharmacy Glycemic Short Note 2 - Date of Service May 10, 2021 - Glycemic Short BSG Results (Last 24 hours): 05/09/21 05/09/21 05/09/21 11:56 16:46 20:28 POC Glucose 194 H 282 H 123 H 05/10/21 07:44 POC Glucose 96 OUTPATIENT ANTIDIABETIC REGIMEN: * N/A * A1c = 8.7% 05/01/21 ASSESSMENT: 05/10: * Pt received total 93 units of insulin yesterday: 40 units basal NPH and 53 units bolus. * Fasting BSG today = 96 mg/dl. * IV Dexamethasone continues at 20 mg q24h. Yesterday dinner BSG was 282 mg/dl and this was the only BSG that was significantly elevated. NPH dose today increased slightly to 45 units with IV Dex today AM. * Novolog CF tightened slightly this AM as well. 05/09: * Pt received total of 64 units of insulin yesterday: 25 units basal and 39 units bolus. * Fasting BSG today was 119 mg/dl. * IV Dexamethasone increased from 6 mg yesterday to 20 mg daily this AM. NPH dose therefore increased to 40 units (0.4 units/kg) to be given with IV Dex. May need adjusted further depending on how BSGs trend in the evening. * Novolog CR tightened slightly with breakfast. 05/07/21 * Patient's BSGs yesterday were [phone] mg/dL. Fasting today is 137 mg/dL. * Patient received 57 units of insulin yesterday. * 25 units of basal with NPH for steroid induced hyperglycemia * 22 units of bolus with NovoLog * BSGs well controlled with current orders. All BSGs <180. No changes needed to regimen at this time. 05/05 * Pt has received 47 units of insulin over the past 24hrs * 25 units of basal with NPH for steroid induced hyperglycemia * 22 units of bolus with NovoLog * BSGs well controlled with current orders. All BSGs <180. No changes needed to regimen at this time. 05/02: * BSGs well-controlled yesterday while on insulin infusion * Insulin infusion discontinued this morning due to BSGs below goal range at reasonable insulin infusion rates * Will cover IV dexamethasone with conservative NPH dose and maintain aggressive Novolog parameters 05/01: * Patient admitted for COVID19 viral pneumonia * Severely hyperglycemic on admission, but no prior dx of DM. A1c consistent with DM. Hyperglycemic but not DKA/HHS. * IV insulin infusion started due to addition of IV steroids while already hyperglycemic. Low dose basal insulin also started in attempts to make future transition to SQ regimen easier. * Insulin infusion continues this AM, running steadily at 3.8units/hr with BSGs in goal range. Discussed pt's respiratory and nutritional status w/ RN this AM. Pt quickly desaturates when off BiPAP and likely will not be able to eat much if any today. Will refrain from adding NPH insulin due to uncertain PO intake. Will wait to see response to IV dexamethasone while NPO this AM to determine if NPH would still be appropriate moving forward. Insulin drip remains most appropriate therapy this AM, however may be able to begin transition to SQ later today once more data collected. PLAN FOR INPATIENT GLYCEMIC CONTROL: * Basal insulin: increased * NPH 45 units SQ daily to be given with IV dexamethasone 20mg * Bolus insulin: tightened CF * NovoLog per scale ACHS or Q6hrs while NPO * Goal Range: Low 110 mg/dL - High 140 mg/dL * Correction Factor: 10 mg/dL/unit * Nutritional / Prandial insulin per carb ratio of 1 unit per 4.5 grams CHO consumed PLAN FOR DISCHARGE: * HbA1c of 8.7% (05/01/21), reasonable goal for this patient would be less than 7% * Metformin should be started at the time type 2 diabetes is diagnosed unless there are contraindications. Metformin is effective and safe, is inexpensive, and may reduce risk of cardiovascular events and . * B12 supplementation may be necessary with alf metformin use * FDA has revised the label for metformin to reflect its safety in patients with eGFR 30 mL/min or above * Recommend starting: Metformin XR 500mg PO daily with evening meal. Typically the XR formulation of metformin is better tolerated than the immediate release formulation. Continue to titrate metformin dosing upwards as recommended. Dosage increases should be made in increments of 500 mg weekly, up to 2,000 mg/day PO, given in divided doses. Doses above 2000 mg/day may be better tolerated if divided and given 3 times per day with meals. Max: 2,550 mg/day PO, in divided doses * Support Patient Self-Management * Healthy Lifestyle (diet, exercise, and smoking cessation) * Disease self-management (SMBG) * Prevention of complications (BP, Lipid goals, Immunizations) * Consider outpatient Diabetes Self-Management Education & Support * Patient will likely require additional antidiabetic therapy, but would first trial metformin and defer further decision-making to outpatient provider
[2021-05-11 08:31] LABS: Hematocrit (blood only) 42.1 % (42-52); Hemoglobin 14.4 g/dL (14.0-18.0); Mean Corpuscular Hemoglobin 30.1 pg (25-34); Mean Corpuscular Hgb Conc 34.2 g/dL (32-36); Mean Corpuscular Volume 87.9 fL (80-100); Mean Platelet Volume 11.4 fL (7.4-10.4); Platelet Count 352 K/uL (130-400); RDW Standard Deviation 41.5 fL (36.4-46.3); Red Blood Count 4.79 M/uL (4.7-6.1); White Blood Count 17.17 K/uL (4.8-10.8)
[2021-05-11] MEDS: INSULIN ASPART PER UNIT SC SCH ×4 (08:39→21:17)
[2021-05-11] MEDS: CHOLECALCIFEROL 1,000 UNITS 25 MCG TAB PO SCH (08:43)
[2021-05-11] MEDS: VITAMIN B COMPLEX TAB PO SCH (08:43)
[2021-05-11] MEDS: ASCORBIC ACID 500 MG TAB PO SCH (08:43)
[2021-05-11] MEDS: ZINC SULFATE 220 MG CAPSULE PO SCH (08:43)
[2021-05-11] MEDS: ENOXAPARIN INJ 60 MG/0.6 ML SYR SQ SCH ×2 (08:44→21:07)
[2021-05-11] MEDS: FAMOTIDINE 20 MG TAB PO SCH ×2 (08:44→21:06)
[2021-05-11] MEDS: dexAMETHasone 20 MG in DEXTROSE 5% 25 ML IV SCH (08:44)
[2021-05-11] MEDS: guaiFENesin 600 MG TABCR PO SCH ×2 (08:45→21:06)
[2021-05-11] MEDS: FUROSEMIDE INJ 20 MG/2 ML VIAL IV SCH ×2 (08:45→17:54)
[2021-05-11] MEDS: INSULIN HUMAN NPH SC SCH (08:45)
[2021-05-11] MEDS: 4mg Daily x 14 days (eGFR >60 mL/min/1.73m2) PO SCH (08:48)
[2021-05-11 09:20] LABS: Albumin Level 2.5 gm/dl (3.4-5.0); BUN Creatinine Ratio 23.9 (10-20); Bilirubin Direct 0.1 mg/dl (0-0.2); C Reactive Protein 1.33 mg/dl (0-0.29); Calcium 8.8 mg/dl (8.5-10.1); Creatinine Clr Calc Pharmacy 99.2 ml/min; Est GFR (African American) 106.2 ml/min; Est GFR (Non-African American) 91.7 ml/min; Magnesium 2.3 mg/dl (1.8-2.4); Phosphorus 3.9 mg/dl (2.5-4.9); Potassium 3.8 mmol/L (3.5-5.1); Total Protein 6.5 gm/dl (6.4-8.2)
[2021-05-11 09:21] LABS: Bilirubin,Total 0.5 mg/dl (0.2-1)
--- NOTE | 2021-05-11 15:01 | Hospitalist Progress Note ---
Date of Service May 11, 2021 Assessment & Plan (1) Pneumonia due to 2019-nCoV: Plan: Severe, with resulting acute hypoxic respiratory failure. downt to 40L and 65% FiO2 completed 9 days of dexamethasone 6mg IV, no significant improvement 05/09: increased dexamethasone to 20mg IV x 5 days (day 3 today) then 10mg x 5 days Continue Baricitinib - day #12 today. CXR 05/07: no significant change compared to 04/30 Completed 5-day course of Remdesivir. Completed 5-day course of Azithromycin. Cont self-proning, flutter valve and incentive spirometry. Lovenox 50mg BID for DVT prophylaxis. Continue HFNC during the day; BIPAP at night. Cr is stable, increase Lasix 20mg IV to BID for more negative balance, see if oxygen requirements can come down procalcitonin is normal (2) Acute respiratory failure with hypoxia: Plan: 2nd to #1. Continue BIPAP at HS, HFNC during the day, he is on 40L 65% this morning he is compliant with proning no distress at all, sitting up in a chair currently see above (3) Depressed affect: Plan: frustrated at being here so long, wants to get better faster sad that he will be here over Ree encourage him daily, short term goal is to get off Vapotherm, then work on getting home by the New Year (4) Diabetes mellitus type 2, uncontrolled: Plan: New diagnosis. A1C 8.7%. Needs diabetes education and dietary counseling. Pharmacy glycemic team involved; recommendations appreciated. Was on Insulin drip early in his stay then transitioned to basal-bolus SC regimen. Control acceptable at this time increase NPH to 40 with increase in dexamethasone to 20mg sugars managed by pharmacy (5) Fatty liver: Plan: LFTs mildly high but acceptable enough to continue Baricitinib AST 92 and ALT 117 when last checked (6) Transaminitis: Plan: see above (7) DVT prophylaxis: Plan: lovenox 50mg BID Admission and Anticipated Discharge Date Admission Date: April 30, 2021 Subjective patient continues to be depressed that he is here he is eating well, sleeping fine, making urine with Lasix, moving his bowels still cannot get him lower than 40L and 65%, RT tried several times increased his Lasix to BID on labs, Cr and K are stable, his CRP is < 2, trending down appropriately encouraged him to be patient, goal is to get him home before the New Year Review of Systems Review of Systems: All systems reviewed & are unremarkable except as noted in Subjective Respiratory: + cough, + dyspnea and + dyspnea on exertion Physical Exam Physical Exam: General: well developed, well nourished, middle aged man, ill appearing, no distress Neck: supple, trachea midline, normal thyroid Lungs: clear to auscultation bilaterally, + tachypneic, no accessory muscle use, no distress Heart: regular S1 and S2, no murmur, peripheral pulses normal, capillary refill normal, no edema Abdomen: soft, NT, ND, + BS, no hepatomegaly, normal to percussion Extremities: normal in appearance, no cyanosis, no petechiae, strength is 5/5 bilaterally Neuro: awake, cooperative, moves all extremities, no focal motor deficits, CN II-XII intact, sensation in extremities intact, normal speech Skin: warm, dry, no rash, normal turgor Psych: Awake, alert oriented x 3, euthymic affect Results & Data Results & Data ([facility]) Vital Signs (Past 12 Hours) Vital Signs Temp Pulse Resp BP Pulse Ox 05/11/21 11:35 36.8 C 62 18 116/54 L 91 05/11/21 11:34 65 18 90 05/11/21 07:56 37.1 C 72 18 124/70 90 05/11/21 07:52 71 18 91 05/11/21 05:50 37.1 C 62 22 111/69 92 Laboratory Results Laboratory Results - last 24 hr 05/11/21 05/11/21 05/11/21 07:37 07:37 07:37 WBC 17.17 H RBC 4.79 Hgb 14.4 Hct 42.1 MCV 87.9 MCH 30.1 MCHC 34.2 RDW Std Deviation 41.5 RDW Coeff of Wan 13.0 Plt Count 352 MPV 11.4 H Sodium 136 Potassium 3.8 Chloride 103 Carbon Dioxide 28 Anion Gap 5.0 BUN 23 H Creatinine 0.95 Est Cr Clr Drug Dosing 99.2 Est GFR ( Amer) 106.2 Est GFR (Non-Af Amer) 91.7 BUN/Creatinine Ratio 23.9 H Glucose 92 POC Glucose Calcium 8.8 Phosphorus 3.9 Magnesium 2.3 Total Bilirubin 0.5 Direct Bilirubin 0.1 AST 63 H ALT 122 H Alkaline Phosphatase 111 C-Reactive Protein 1.33 H Total Protein 6.5 Albumin 2.5 L Procalcitonin 0.11 05/11/21 05/11/21 05/11/21 07:50 11:51 16:45 WBC RBC Hgb Hct MCV MCH MCHC RDW Std Deviation RDW Coeff of Wan Plt Count MPV Sodium Potassium Chloride Carbon Dioxide Anion Gap BUN Creatinine Est Cr Clr Drug Dosing Est GFR ( Amer) Est GFR (Non-Af Amer) BUN/Creatinine Ratio Glucose POC Glucose 95 196 H 242 H Calcium Phosphorus Magnesium Total Bilirubin Direct Bilirubin AST ALT Alkaline Phosphatase C-Reactive Protein Total Protein Albumin Procalcitonin 05/11/21 20:09 WBC RBC Hgb Hct MCV MCH MCHC RDW Std Deviation RDW Coeff of Wan Plt Count MPV Sodium Potassium Chloride Carbon Dioxide Anion Gap BUN Creatinine Est Cr Clr Drug Dosing Est GFR ( Amer) Est GFR (Non-Af Amer) BUN/Creatinine Ratio Glucose POC Glucose 184 H Calcium Phosphorus Magnesium Total Bilirubin Direct Bilirubin AST ALT Alkaline Phosphatase C-Reactive Protein Total Protein Albumin Procalcitonin Medications Administered Current Inpatient Medications Acetaminophen (Acetaminophen 325 Mg Tab) 650 mg PO Q4H PRN PRN Reason: Headache Stop: 06/08/21 11:15 Last Admin: 05/09/21 11:45 Dose: 650 mg Documented by: Albuterol (Albut/Ipratrop 3mg/0.5mg Neb 3 Ml Vial) 3 ml NEB Q4 PRN PRN Reason: Shortness Of Breath Or Wheezing Stop: 06/02/21 11:59 Ascorbic Acid (Ascorbic Acid 500 Mg Tab) 500 mg PO DAILY [facility] Stop: 05/30/21 08:59 Last Admin: 05/11/21 08:43 Dose: 500 mg Documented by: Baricitinib (4mg Daily X 14 Days (Egfr >60 Ml/Min/1.73m2)) 4 mg PO DAILY [facility]; Protocol Stop: 05/14/21 10:59 Last Admin: 05/11/21 08:48 Dose: 4 mg Documented by: Dextrose (Dextrose 50% 50 Ml Syringe) 25 - 50 ml IV UD PRN; Protocol PRN Reason: Hypoglycemia Protocol Stop: 05/30/21 06:32 Last Admin: 05/02/21 05:03 Dose: 25 ml Documented by: Enoxaparin Sodium (Enoxaparin Inj 60 Mg/0.6 Ml Syr) 50 mg SQ Q12H [facility] Stop: 05/30/21 07:59 Last Admin: 05/11/21 21:07 Dose: 50 mg Documented by: Famotidine (Famotidine 20 Mg Tab) 20 mg PO BID [facility] Stop: 05/30/21 08:59 Last Admin: 05/11/21 21:06 Dose: 20 mg Documented by: Furosemide (Furosemide Inj 20 Mg/2 Ml Vial) 20 mg IV [id number] [facility] Stop: 06/10/21 08:59 Last Admin: 05/11/21 17:54 Dose: 20 mg Documented by: Glucagon (Glucagon For Inj 1 Mg Vial) 1 mg SQ UD PRN; Protocol PRN Reason: Hypoglycemia Protocol Stop: 05/30/21 06:32 Glucose (Glucose 10 Tabs/Tube) 4 - 8 tabs PO UD PRN; Protocol PRN Reason: Hypoglycemia Protocol Stop: 05/30/21 06:32 Glucose (Glucose 40% Gel 15 Gm Tube) 15 - 30 gm PO UD PRN; Protocol PRN Reason: Hypoglycemia Protocol Stop: 05/30/21 06:32 Guaifenesin (Guaifenesin 600 Mg Tabcr) 1,200 mg PO Q12 [facility] Stop: 05/30/21 08:59 Last Admin: 05/11/21 21:06 Dose: 1,200 mg Documented by: Guaifenesin/Codeine Phosphate (Guaifenesin/Codeine 200mg/20mg 10ml Udc) 10 ml PO Q6H PRN PRN Reason: Cough Stop: 06/08/21 09:04 Dexamethasone 20 mg/ Dextrose 30 mls @ 60 mls/hr IV DAILY@0900 [facility] Stop: 06/08/21 08:59 Last Infusion: 05/11/21 09:40 Dose: Infused Documented by: Ibuprofen (Ibuprofen 200 Mg Tab) 400 mg PO TID PRN PRN Reason: Headache Stop: 06/08/21 11:15 Insulin Aspart (Insulin Aspart Per Unit) 0 units SC ACHS [facility] Stop: 05/30/21 16:29 Last Admin: 05/11/21 21:17 Dose: 3 units Documented by: Insulin Human NPH (Insulin Human Nph) 45 units SC DAILY [facility] Stop: 06/09/21 08:59 Last Admin: 05/11/21 08:45 Dose: 45 units Documented by: Miscellaneous (Carbohydrates For Hypoglycemia ) 15 - 30 gm PO UD PRN PRN Reason: Hypoglycemia Protocol Stop: 05/30/21 06:32 Miscellaneous Information (Pharmacy Glycemic Mgmt Consult) 1 ea N/A UD PRN PRN Reason: Consult Stop: 05/30/21 14:08 Ondansetron HCl (Ondansetron Inj 2 Mg/Ml 2 Ml Vial) 4 mg IV Q6H PRN PRN Reason: Nausea Stop: 05/30/21 06:32 Vitamin B Complex (Vitamin B Complex Tab) 1 tab PO DAILY [facility] Stop: 05/30/21 08:59 Last Admin: 05/11/21 08:43 Dose: 1 tab Documented by: Vitamin D (Cholecalciferol 1,000 Units 25 Mcg Tab) 1,000 units PO DAILY [facility] Stop: 05/30/21 08:59 Last Admin: 05/11/21 08:43 Dose: 1,000 units Documented by: Zinc Sulfate (Zinc Sulfate 220 Mg Capsule) 220 mg PO QAM [facility] Stop: 05/30/21 08:59 Last Admin: 05/11/21 08:43 Dose: 220 mg Documented by: PG Care Time/CCT Total # of Minutes Spent Total Time Spent: 32 Total Time Spent with Patient: Total time spent is greater than 50% in coordination of care (as documented) at patient's floor/unit and/or counseling patient: Coding Level of Care Code 49843 Subseq Hosp Care Lvl 3 (25 - SIGNIFICANT, SEPARATELY IDENTIFIABLE ) Diagnoses Pneumonia due to 2019-nCoV U07.1; J12.82 Acute respiratory failure with hypoxia J96.01 Diabetes mellitus type 2, uncontrolled E11.65 Fatty liver K76.0 Transaminitis R74.01 DVT prophylaxis Z29.9 Depressed affect R45.89
[2021-05-12] MEDS: ENOXAPARIN INJ 60 MG/0.6 ML SYR SQ SCH ×2 (09:04→22:27)
[2021-05-12] MEDS: VITAMIN B COMPLEX TAB PO SCH (09:07)
[2021-05-12] MEDS: ZINC SULFATE 220 MG CAPSULE PO SCH (09:07)
[2021-05-12] MEDS: CHOLECALCIFEROL 1,000 UNITS 25 MCG TAB PO SCH (09:08)
[2021-05-12] MEDS: ASCORBIC ACID 500 MG TAB PO SCH (09:08)
[2021-05-12] MEDS: guaiFENesin 600 MG TABCR PO SCH ×2 (09:08→22:27)
[2021-05-12] MEDS: FAMOTIDINE 20 MG TAB PO SCH ×2 (09:08→22:27)
[2021-05-12] MEDS: FUROSEMIDE INJ 20 MG/2 ML VIAL IV SCH ×2 (09:09→18:11)
[2021-05-12] MEDS: 4mg Daily x 14 days (eGFR >60 mL/min/1.73m2) PO SCH (09:21)
[2021-05-12] MEDS: ACETAMINOPHEN 325 MG TAB PO PRN (09:21)
[2021-05-12] MEDS: INSULIN HUMAN NPH SC SCH (09:22)
[2021-05-12] MEDS: INSULIN ASPART PER UNIT SC SCH ×4 (09:23→21:51)
[2021-05-12] MEDS: dexAMETHasone 20 MG in DEXTROSE 5% 25 ML IV SCH (09:24)
--- NOTE | 2021-05-12 11:43 | Hospitalist Progress Note ---
Date of Service May 12, 2021 Assessment & Plan (1) Pneumonia due to 2019-nCoV: Plan: Severe, with resulting acute hypoxic respiratory failure. weaned down to 35L and 60% FiO2 today, improving a bit each day completed 9 days of dexamethasone 6mg IV, no significant improvement 05/09: increased dexamethasone to 20mg IV x 5 days (day 4 today) then 10mg x 5 days, but if able tto wean off HFNC, will dc steroids Continue Baricitinib - day #13 today. CXR 05/07: no significant change compared to 04/30 Completed 5-day course of Remdesivir. Completed 5-day course of Azithromycin. Cont self-proning, flutter valve and incentive spirometry. Lovenox 50mg BID for DVT prophylaxis. Continue HFNC during the day; BIPAP at night. Cr is stable, continue increased dose Lasix 20mg IV to BID for more negative balance, see if oxygen requirements can come down procalcitonin is normal follow CBC< CMP, CRP in AM (2) Acute respiratory failure with hypoxia: Plan: 2nd to #1. Continue BIPAP at HS, HFNC during the day As above (3) Depressed affect: Plan: frustrated at being here so long, wants to get better faster sad that he will be here over [place] encourage him daily, short term goal is to get off Vapotherm, then work on getting home by the New Year (4) Diabetes mellitus type 2, uncontrolled: Plan: New diagnosis. A1C 8.7%. Needs diabetes education and dietary counseling. Pharmacy glycemic team involved; recommendations appreciated. Was on Insulin drip early in his stay then transitioned to basal-bolus SC regimen. Control acceptable at this time continue NPH with increase in dexamethasone to 20mg sugars managed by pharmacy (5) Fatty liver: Plan: LFTs mildly high but acceptable enough to continue Baricitinib AST 92 and ALT 117 when last checked (6) Transaminitis: Plan: see above (7) DVT prophylaxis: Plan: lovenox 50mg BID Plan: Dispo-continued stay tele COVID unit Discussed his care with his on his FaceTime in the room Admission and Anticipated Discharge Date Admission Date: April 30, 2021 Subjective Pt has no complaints, just frustrated about length of time in hospital. No CP or SOB, mild cough nonproductive. No diarrhea or constipation, no ab dpain. Tele with NSR Review of Systems Review of Systems: All systems reviewed & are unremarkable except as noted in HPI & below Physical Exam Constitutional: WD/WN, vitals as above Eyes: + anicteric sclerae Neck: trachea midline, no thyromegaly Respiratory: normal respiratory effort, lungs clear to auscultation (diminsihed throughout) Cardiovascular: RRR, no murmur, no edema Chest (Breasts): Chest: normal inspection of chest Gastrointestinal (Abdomen): normal bowel sounds, soft, nontender, no hepatosplenomegaly Musculoskeletal: Extremities: extremities normal to inspection; no cyanosis and no clubbing Skin: no rashes, warm and dry Neurologic: moves all extremities and awake; no focal motor deficits Psychiatric: A+Ox3, euthymic affect Lymphatic: no lymphedema Results & Data Results & Data ([facility]) Vital Signs (Past 12 Hours) Vital Signs Temp Pulse Pulse Pulse Resp BP Pulse Ox 05/12/21 11:28 66 18 92 05/12/21 08:15 19 88 L 05/12/21 07:24 36.4 C L 71 19 101/56 L 89 L 05/12/21 04:00 36.8 C 74 22 102/58 L 90 05/12/21 02:20 59 L 16 93 05/12/21 00:00 91 H Laboratory Results 05/12/21 05/11/21 05/11/21 Range/Units 07:53 20:09 16:45 POC Glucose 90 184 H 242 H (70-99) mg/dl 05/11/21 Range/Units 11:51 POC Glucose 196 H (70-99) mg/dl PG Care Time/CCT Total # of Minutes Spent Total Time Spent with Patient: Total time spent is greater than 50% in coordination of care (as documented) at patient's floor/unit and/or counseling patient: Coding Level of Care Code 06974 Subseq Hosp Care Lvl 3 Diagnoses Pneumonia due to 2019-nCoV U07.1; J12.82 Acute respiratory failure with hypoxia J96.01 Depressed affect R45.89 Diabetes mellitus type 2, uncontrolled E11.65 Fatty liver K76.0 Transaminitis R74.01 DVT prophylaxis Z29.9
[2021-05-13 08:00] LABS: Basophils # (auto) 0.01 K/uL (0-0.2); Basophils % (auto) 0.1 %; Eosinophils # (auto) 0.17 K/uL (0-0.5); Eosinophils % (auto) 1.1 %; Hematocrit (blood only) 43.8 % (42-52); Hemoglobin 14.7 g/dL (14.0-18.0); Immature Granulocytes # (auto) 0.13 K/uL (0.00-0.02); Immature Granulocytes % (auto) 0.9 %; Lymphocytes # (auto) 2.27 K/uL (1.2-3.4); Mean Corpuscular Hemoglobin 29.9 pg (25-34); Mean Corpuscular Hgb Conc 33.6 g/dL (32-36); Mean Platelet Volume 11.4 fL (7.4-10.4); Monocytes # (auto) 1.03 K/uL (0.11-0.59); Monocytes % (auto) 6.8 %; Neutrophils # (auto) 11.57 K/uL (1.4-6.5); Neutrophils % (auto) 76.1 %; Platelet Count 398 K/uL (130-400); RDW Coefficient of Variation 13.2 % (11.5-14.5); RDW Standard Deviation 42.5 fL (36.4-46.3); Red Blood Count 4.92 M/uL (4.7-6.1); White Blood Count 15.18 K/uL (4.8-10.8)
[2021-05-13] MEDS: INSULIN ASPART PER UNIT SC SCH ×4 (08:30→21:49)
[2021-05-13 08:31] LABS: Albumin Globulin Ratio 0.7 (0.9-2); Albumin Level 2.8 gm/dl (3.4-5.0); BUN Creatinine Ratio 23.8 (10-20); Bilirubin,Total 0.4 mg/dl (0.2-1); C Reactive Protein 0.41 mg/dl (0-0.29); Creatinine Clr Calc Pharmacy 102.7 ml/min; Est GFR (African American) 111.9 ml/min; Est GFR (Non-African American) 96.6 ml/min; Total Protein 6.8 gm/dl (6.4-8.2)
[2021-05-13] MEDS: FUROSEMIDE INJ 20 MG/2 ML VIAL IV SCH ×2 (08:50→18:24)
[2021-05-13] MEDS: dexAMETHasone 20 MG in DEXTROSE 5% 25 ML IV SCH (08:51)
[2021-05-13] MEDS: CHOLECALCIFEROL 1,000 UNITS 25 MCG TAB PO SCH (08:52)
[2021-05-13] MEDS: ASCORBIC ACID 500 MG TAB PO SCH (08:52)
[2021-05-13] MEDS: ENOXAPARIN INJ 60 MG/0.6 ML SYR SQ SCH ×2 (08:52→21:16)
[2021-05-13] MEDS: guaiFENesin 600 MG TABCR PO SCH ×2 (08:53→21:16)
[2021-05-13] MEDS: FAMOTIDINE 20 MG TAB PO SCH ×2 (08:53→21:16)
[2021-05-13] MEDS: ZINC SULFATE 220 MG CAPSULE PO SCH (08:54)
[2021-05-13] MEDS: VITAMIN B COMPLEX TAB PO SCH (08:55)
[2021-05-13] MEDS: 4mg Daily x 14 days (eGFR >60 mL/min/1.73m2) PO SCH (08:59)
[2021-05-13] MEDS ORDERED: INSULIN HUMAN NPH SC SCH ×2 (09:00)
--- NOTE | 2021-05-13 13:06 | Hospitalist Progress Note ---
Date of Service May 13, 2021 Assessment & Plan (1) Pneumonia due to 2019-nCoV: Plan: Severe, with resulting acute hypoxic respiratory failure. Was on high flow nasal cannula Vapotherm for almost 2 weeks and finally weaned down to 10 L nasal cannula on 05/13 completed 9 days of dexamethasone 6mg IV, no significant improvement 05/09: increased dexamethasone to 20mg IV x 5 days and now will discontinue as he is much improved and has been on steroids for 2 weeks Continue Baricitinib - day #14 today. We will now discontinue CXR 05/07: no significant change compared to 04/30 Completed 5-day course of Remdesivir. Completed 5-day course of Azithromycin. Cont self-proning, flutter valve and incentive spirometry. Lovenox 50mg BID for DVT prophylaxis. Continue supplemental O2 with wall nasal cannula and wean off as tolerated Cr is stable, continue increased dose Lasix 20mg IV to BID for more negative balance, see if oxygen requirements can come down procalcitonin is normal Follow CBC, CMP in the morning, CRP is now almost completely back to normal (2) Acute respiratory failure with hypoxia: Plan: As above (3) Depressed affect: Plan: frustrated at being here so long, wants to get better faster Improved today as he feels he is getting better (4) Diabetes mellitus type 2, uncontrolled: Plan: New diagnosis. A1C 8.7%. Needs diabetes education and dietary counseling. Pharmacy glycemic team involved; recommendations appreciated. Was on Insulin drip early in his stay then transitioned to basal-bolus SC regimen. Control acceptable at this time Steroids will now be discontinued-I let the pharmacist know and the NPH for the morning has now been discontinued (5) Fatty liver: Plan: LFTs mildly elevated but improved from previous (6) Transaminitis: Plan: see above, likely secondary to fatty liver and Covid-19 Follow LFTs (7) DVT prophylaxis: Plan: lovenox 50mg BID Plan: Dispo-continued stay tele COVID unit, but improving Expect discharge in the next 3 to 4 days Admission and Anticipated Discharge Date Admission Date: April 30, 2021 Subjective Feels well today, taken off Vapotherm and is on 10 L nasal cannula when I saw him. Reports he had the best night sleep yet last night. No other acute concerns, is eating and drinking. Telemetry with normal sinus rhythm with rates in the 50s to 60s Review of Systems Review of Systems: All systems reviewed & are unremarkable except as noted in HPI & below Physical Exam Constitutional: WD/WN, vitals as above Eyes: + anicteric sclerae Neck: trachea midline, no thyromegaly Respiratory: normal respiratory effort, lungs clear to auscultation (diminsihed throughout) Cardiovascular: RRR, no murmur, no edema Chest (Breasts): Chest: normal inspection of chest Gastrointestinal (Abdomen): normal bowel sounds, soft, nontender, no hepatosplenomegaly Musculoskeletal: Extremities: extremities normal to inspection; no cyanosis and no clubbing Skin: no rashes, warm and dry Neurologic: moves all extremities and awake; no focal motor deficits Psychiatric: A+Ox3, euthymic affect Lymphatic: no lymphedema Results & Data Results & Data ([facility]) Vital Signs (Past 12 Hours) Vital Signs Temp Pulse Pulse Resp BP Pulse Ox 05/13/21 11:44 36.5 C 71 21 97/55 L 91 05/13/21 07:47 36.6 C 69 22 99/61 L 94 05/13/21 03:41 96 05/13/21 02:55 36.5 C 66 14 119/66 90 Laboratory Results 05/13/21 05/13/21 05/13/21 Range/Units 19:49 16:28 11:43 WBC (4.8-10.8) K/uL RBC (4.7-6.1) M/uL Hgb (14.0-18.0) g/dL Hct (42-52) % MCV (80-100) fL MCH (25-34) pg MCHC (32-36) g/dL RDW Std Deviation (36.4-46.3) fL RDW Coeff of Wan (11.5-14.5) % Plt Count (130-400) K/uL MPV (7.4-10.4) fL Immature Gran % (Auto) % Neut % (Auto) % Lymph % (Auto) % [place] % (Auto) % Eos % (Auto) % Baso % (Auto) % Neut # (Auto) (1.4-6.5) K/uL Lymph # (Auto) (1.2-3.4) K/uL [place] # (Auto) (0.11-0.59) K/uL Eos # (Auto) (0-0.5) K/uL Baso # (Auto) (0-0.2) K/uL Immature Gran # (Auto) (0.00-0.02) K/uL Sodium (136-145) mmol/L Potassium (3.5-5.1) mmol/L Chloride (98-107) mmol/L Carbon Dioxide (21-32) mmol/L Anion Gap (3-11) BUN (7-18) mg/dl Creatinine (0.6-1.4) mg/dl Est Cr Clr Drug Dosing ml/min Est GFR ( Amer) ml/min Est GFR (Non-Af Amer) ml/min BUN/Creatinine Ratio (10-20) Glucose (70-99) mg/dl POC Glucose 157 H 143 H 152 H (70-99) mg/dl Calcium (8.5-10.1) mg/dl Total Bilirubin (0.2-1) mg/dl AST (15-37) U/L ALT (12-78) Alkaline Phosphatase (45-117) U/L C-Reactive Protein (0-0.29) mg/dl Total Protein (6.4-8.2) gm/dl Albumin (3.4-5.0) gm/dl Globulin (2.5-4.0) gm/dl Albumin/Globulin Ratio (0.9-2) 05/13/21 05/13/21 05/13/21 Range/Units 07:48 06:29 06:29 WBC 15.18 H (4.8-10.8) K/uL RBC 4.92 (4.7-6.1) M/uL Hgb 14.7 (14.0-18.0) g/dL Hct 43.8 (42-52) % MCV 89.0 (80-100) fL MCH 29.9 (25-34) pg MCHC 33.6 (32-36) g/dL RDW Std Deviation 42.5 (36.4-46.3) fL RDW Coeff of Wan 13.2 (11.5-14.5) % Plt Count 398 (130-400) K/uL MPV 11.4 H (7.4-10.4) fL Immature Gran % (Auto) 0.9 % Neut % (Auto) 76.1 % Lymph % (Auto) 15.0 % [place] % (Auto) 6.8 % Eos % (Auto) 1.1 % Baso % (Auto) 0.1 % Neut # (Auto) 11.57 H (1.4-6.5) K/uL Lymph # (Auto) 2.27 (1.2-3.4) K/uL [place] # (Auto) 1.03 H (0.11-0.59) K/uL Eos # (Auto) 0.17 (0-0.5) K/uL Baso # (Auto) 0.01 (0-0.2) K/uL Immature Gran # (Auto) 0.13 H (0.00-0.02) K/uL Sodium 136 (136-145) mmol/L Potassium 4.0 (3.5-5.1) mmol/L Chloride 102 (98-107) mmol/L Carbon Dioxide 30 (21-32) mmol/L Anion Gap 4.0 (3-11) BUN 22 H (7-18) mg/dl Creatinine 0.91 (0.6-1.4) mg/dl Est Cr Clr Drug Dosing 102.7 ml/min Est GFR ( Amer) 111.9 ml/min Est GFR (Non-Af Amer) 96.6 ml/min BUN/Creatinine Ratio 23.8 H (10-20) Glucose 80 (70-99) mg/dl POC Glucose 84 (70-99) mg/dl Calcium 9.0 (8.5-10.1) mg/dl Total Bilirubin 0.4 (0.2-1) mg/dl AST 47 H (15-37) U/L ALT 120 H (12-78) Alkaline Phosphatase 91 (45-117) U/L C-Reactive Protein 0.41 H (0-0.29) mg/dl Total Protein 6.8 (6.4-8.2) gm/dl Albumin 2.8 L (3.4-5.0) gm/dl Globulin 4.0 (2.5-4.0) gm/dl Albumin/Globulin Ratio 0.7 L (0.9-2) PG Care Time/CCT Total # of Minutes Spent Total Time Spent with Patient: Total time spent is greater than 50% in coordination of care (as documented) at patient's floor/unit and/or counseling patient: Coding Level of Care Code 07456 Subseq Hosp Care Lvl 3 Diagnoses Pneumonia due to 2019-nCoV U07.1; J12.82 Acute respiratory failure with hypoxia J96.01 Depressed affect R45.89 Diabetes mellitus type 2, uncontrolled E11.65 Fatty liver K76.0 Transaminitis R74.01 DVT prophylaxis Z29.9
--- NOTE | 2021-05-13 14:13 | Pharmacy Report ---
Pharmacy Glycemic Short Note 2 - Date of Service May 13, 2021 - Glycemic Short BSG Results (Last 24 hours): 05/12/21 05/12/21 05/13/21 16:38 20:27 06:29 Glucose 80 POC Glucose 144 H 100 H 05/13/21 05/13/21 07:48 11:43 Glucose POC Glucose 84 152 H OUTPATIENT ANTIDIABETIC REGIMEN: * N/A * A1c = 8.7% 05/01/21 ASSESSMENT: 05/11: * Patient received total of 88 units of insulin yesterday, of which 45 units were NPH * Fasting BSG 80 mg/dL - scaled back on NPH, unclear if lasting longer? * Steroids stopped today, therefore will hold NPH tomorrow and continue only SSI 05/10: * Pt received total 93 units of insulin yesterday: 40 units basal NPH and 53 units bolus. * Fasting BSG today = 96 mg/dl. * IV Dexamethasone continues at 20 mg q24h. Yesterday dinner BSG was 282 mg/dl and this was the only BSG that was significantly elevated. NPH dose today increased slightly to 45 units with IV Dex today AM. * Novolog CF tightened slightly this AM as well. 05/09: * Pt received total of 64 units of insulin yesterday: 25 units basal and 39 units bolus. * Fasting BSG today was 119 mg/dl. * IV Dexamethasone increased from 6 mg yesterday to 20 mg daily this AM. NPH dose therefore increased to 40 units (0.4 units/kg) to be given with IV Dex. May need adjusted further depending on how BSGs trend in the evening. * Novolog CR tightened slightly with breakfast. 05/07/21 * Patient's BSGs yesterday were [phone] mg/dL. Fasting today is 137 mg/dL. * Patient received 57 units of insulin yesterday. * 25 units of basal with NPH for steroid induced hyperglycemia * 22 units of bolus with NovoLog * BSGs well controlled with current orders. All BSGs <180. No changes needed to regimen at this time. 05/05 * Pt has received 47 units of insulin over the past 24hrs * 25 units of basal with NPH for steroid induced hyperglycemia * 22 units of bolus with NovoLog * BSGs well controlled with current orders. All BSGs <180. No changes needed to regimen at this time. 05/02: * BSGs well-controlled yesterday while on insulin infusion * Insulin infusion discontinued this morning due to BSGs below goal range at reasonable insulin infusion rates * Will cover IV dexamethasone with conservative NPH dose and maintain aggressive Novolog parameters 05/01: * Patient admitted for COVID19 viral pneumonia * Severely hyperglycemic on admission, but no prior dx of DM. A1c consistent with DM. Hyperglycemic but not DKA/HHS. * IV insulin infusion started due to addition of IV steroids while already hyperglycemic. Low dose basal insulin also started in attempts to make future transition to SQ regimen easier. * Insulin infusion continues this AM, running steadily at 3.8units/hr with BSGs in goal range. Discussed pt's respiratory and nutritional status w/ RN this AM. Pt quickly desaturates when off BiPAP and likely will not be able to eat much if any today. Will refrain from adding NPH insulin due to uncertain PO intake. Will wait to see response to IV dexamethasone while NPO this AM to determine if NPH would still be appropriate moving forward. Insulin drip remains most appropriate therapy this AM, however may be able to begin transition to SQ later today once more data collected. PLAN FOR INPATIENT GLYCEMIC CONTROL: * Basal insulin: decrease * NPH 35 units SQ daily to be given with IV dexamethasone 20mg - then d/c tomorrow with steroids d/c * Bolus insulin: loosen for tomorrow * NovoLog per scale ACHS or Q6hrs while NPO * Goal Range: Low 110 mg/dL - High 140 mg/dL * Correction Factor: 20 mg/dL/unit * Nutritional / Prandial insulin per carb ratio of 1 unit per 6 grams CHO consumed PLAN FOR DISCHARGE: * HbA1c of 8.7% (05/01/21), reasonable goal for this patient would be less than 7% * Metformin should be started at the time type 2 diabetes is diagnosed unless there are contraindications. Metformin is effective and safe, is inexpensive, and may reduce risk of cardiovascular events and . * B12 supplementation may be necessary with [place] metformin use * FDA has revised the label for metformin to reflect its safety in patients with eGFR 30 mL/min or above * Recommend starting: Metformin XR 500mg PO daily with evening meal. Typically the XR formulation of metformin is better tolerated than the immediate release formulation. Continue to titrate metformin dosing upwards as recommended. Dosage increases should be made in increments of 500 mg weekly, up to 2,000 mg/day PO, given in divided doses. Doses above 2000 mg/day may be better tolerated if divided and given 3 times per day with meals. Max: 2,550 mg/day PO, in divided doses * Support Patient Self-Management * Healthy Lifestyle (diet, exercise, and smoking cessation) * Disease self-management (SMBG) * Prevention of complications (BP, Lipid goals, Immunizations) * Consider outpatient Diabetes Self-Management Education & Support * Patient will likely require additional antidiabetic therapy, but would first trial metformin and defer further decision-making to outpatient provider
[2021-05-14 07:24] LABS: Basophils # (auto) 0.01 K/uL (0-0.2); Basophils % (auto) 0.1 %; Eosinophils # (auto) 0.21 K/uL (0-0.5); Eosinophils % (auto) 1.4 %; Hematocrit (blood only) 43.8 % (42-52); Hemoglobin 14.9 g/dL (14.0-18.0); Immature Granulocytes # (auto) 0.18 K/uL (0.00-0.02); Immature Granulocytes % (auto) 1.2 %; Lymphocytes # (auto) 2.16 K/uL (1.2-3.4); Lymphocytes % (auto) 14.8 %; Mean Corpuscular Hemoglobin 30.2 pg (25-34); Mean Corpuscular Volume 88.7 fL (80-100); Mean Platelet Volume 11.2 fL (7.4-10.4); Monocytes % (auto) 8.2 %; Neutrophils # (auto) 10.87 K/uL (1.4-6.5); Neutrophils % (auto) 74.3 %; Platelet Count 377 K/uL (130-400); RDW Coefficient of Variation 13.2 % (11.5-14.5); RDW Standard Deviation 42.5 fL (36.4-46.3); Red Blood Count 4.94 M/uL (4.7-6.1); White Blood Count 14.63 K/uL (4.8-10.8)
[2021-05-14 07:54] LABS: Albumin Level 2.9 gm/dl (3.4-5.0); BUN Creatinine Ratio 20.2 (10-20); Calcium 9.1 mg/dl (8.5-10.1); Creatinine Clr Calc Pharmacy 97.8 ml/min; Est GFR (African American) 104.9 ml/min; Est GFR (Non-African American) 90.5 ml/min; Potassium 4.2 mmol/L (3.5-5.1)
[2021-05-14 07:56] LABS: Albumin Globulin Ratio 0.8 (0.9-2); Bilirubin,Total 0.5 mg/dl (0.2-1); Globulin 3.8 gm/dl (2.5-4.0); Total Protein 6.7 gm/dl (6.4-8.2)
[2021-05-14] MEDS: FUROSEMIDE INJ 20 MG/2 ML VIAL IV SCH ×2 (08:26→18:09)
[2021-05-14] MEDS: guaiFENesin 600 MG TABCR PO SCH ×2 (08:26→21:02)
[2021-05-14] MEDS: ASCORBIC ACID 500 MG TAB PO SCH (08:27)
[2021-05-14] MEDS: ZINC SULFATE 220 MG CAPSULE PO SCH (08:27)
[2021-05-14] MEDS: CHOLECALCIFEROL 1,000 UNITS 25 MCG TAB PO SCH (08:27)
[2021-05-14] MEDS: ENOXAPARIN INJ 60 MG/0.6 ML SYR SQ SCH ×2 (08:28→21:01)
[2021-05-14] MEDS: VITAMIN B COMPLEX TAB PO SCH (08:29)
[2021-05-14] MEDS: FAMOTIDINE 20 MG TAB PO SCH ×2 (08:29→21:02)
[2021-05-14] MEDS: INSULIN ASPART PER UNIT SC SCH ×4 (08:35→20:16)
--- NOTE | 2021-05-14 10:18 | Pharmacy Report ---
Pharmacy Glycemic Short Note 2 - Date of Service May 14, 2021 - Glycemic Short BSG Results (Last 24 hours): 05/13/21 05/13/21 05/13/21 11:43 16:28 19:49 Glucose POC Glucose 152 H 143 H 157 H 05/14/21 05/14/21 06:41 07:46 Glucose 89 POC Glucose 102 H OUTPATIENT ANTIDIABETIC REGIMEN: * N/A * A1c = 8.7% 05/01/21 ASSESSMENT: 05/14 * No dexamethasone today- will hold NPH and loosen CF/CR. * May need to add Lantus back based on A1c of 8.7%. Will reassess tomorrow. None needed today for fasting BSG of 102 mg/dl. 05/11: * Patient received total of 88 units of insulin yesterday, of which 45 units were NPH * Fasting BSG 80 mg/dL - scaled back on NPH, unclear if lasting longer? * Steroids stopped today, therefore will hold NPH tomorrow and continue only SSI 05/10: * Pt received total 93 units of insulin yesterday: 40 units basal NPH and 53 units bolus. * Fasting BSG today = 96 mg/dl. * IV Dexamethasone continues at 20 mg q24h. Yesterday dinner BSG was 282 mg/dl and this was the only BSG that was significantly elevated. NPH dose today increased slightly to 45 units with IV Dex today AM. * Novolog CF tightened slightly this AM as well. 05/09: * Pt received total of 64 units of insulin yesterday: 25 units basal and 39 units bolus. * Fasting BSG today was 119 mg/dl. * IV Dexamethasone increased from 6 mg yesterday to 20 mg daily this AM. NPH dose therefore increased to 40 units (0.4 units/kg) to be given with IV Dex. May need adjusted further depending on how BSGs trend in the evening. * Novolog CR tightened slightly with breakfast. 05/07/21 * Patient's BSGs yesterday were [phone] mg/dL. Fasting today is 137 mg/dL. * Patient received 57 units of insulin yesterday. * 25 units of basal with NPH for steroid induced hyperglycemia * 22 units of bolus with NovoLog * BSGs well controlled with current orders. All BSGs <180. No changes needed to regimen at this time. 05/05 * Pt has received 47 units of insulin over the past 24hrs * 25 units of basal with NPH for steroid induced hyperglycemia * 22 units of bolus with NovoLog * BSGs well controlled with current orders. All BSGs <180. No changes needed to regimen at this time. 05/02: * BSGs well-controlled yesterday while on insulin infusion * Insulin infusion discontinued this morning due to BSGs below goal range at reasonable insulin infusion rates * Will cover IV dexamethasone with conservative NPH dose and maintain aggressive Novolog parameters 05/01: * Patient admitted for COVID19 viral pneumonia * Severely hyperglycemic on admission, but no prior dx of DM. A1c consistent with DM. Hyperglycemic but not DKA/HHS. * IV insulin infusion started due to addition of IV steroids while already hyperglycemic. Low dose basal insulin also started in attempts to make future transition to SQ regimen easier. * Insulin infusion continues this AM, running steadily at 3.8units/hr with BSGs in goal range. Discussed pt's respiratory and nutritional status w/ RN this AM. Pt quickly desaturates when off BiPAP and likely will not be able to eat much if any today. Will refrain from adding NPH insulin due to uncertain PO intake. Will wait to see response to IV dexamethasone while NPO this AM to determine if NPH would still be appropriate moving forward. Insulin drip remains most appropriate therapy this AM, however may be able to begin transition to SQ later today once more data collected. PLAN FOR INPATIENT GLYCEMIC CONTROL: * Basal insulin: * then d/c with steroids d/c * Bolus insulin: loosen * NovoLog per scale ACHS or Q6hrs while NPO * Goal Range: Low 110 mg/dL - High 140 mg/dL * Correction Factor: 25 mg/dL/unit * Nutritional / Prandial insulin per carb ratio of 1 unit per 7 grams CHO consumed PLAN FOR DISCHARGE: * HbA1c of 8.7% (05/01/21), reasonable goal for this patient would be less than 7% * Metformin should be started at the time type 2 diabetes is diagnosed unless there are contraindications. Metformin is effective and safe, is inexpensive, and may reduce risk of cardiovascular events and . * B12 supplementation may be necessary with [facility] metformin use * FDA has revised the label for metformin to reflect its safety in patients with eGFR 30 mL/min or above * Recommend starting: Metformin XR 500mg PO daily with evening meal. Typically the XR formulation of metformin is better tolerated than the immediate release formulation. Continue to titrate metformin dosing upwards as recommended. Dosage increases should be made in increments of 500 mg weekly, up to 2,000 mg/day PO, given in divided doses. Doses above 2000 mg/day may be better tolerated if divided and given 3 times per day with meals. Max: 2,550 mg/day PO, in divided doses * Support Patient Self-Management * Healthy Lifestyle (diet, exercise, and smoking cessation) * Disease self-management (SMBG) * Prevention of complications (BP, Lipid goals, Immunizations) * Consider outpatient Diabetes Self-Management Education & Support * Patient will likely require additional antidiabetic therapy, but would first trial metformin and defer further decision-making to outpatient provider
--- NOTE | 2021-05-14 21:01 | Hospitalist Progress Note ---
Date of Service May 14, 2021 Assessment & Plan (1) Pneumonia due to 2019-nCoV: Plan: Severe, with resulting acute hypoxic respiratory failure. Was on high flow nasal cannula Vapotherm for almost 2 weeks and finally weaned down to 10 L nasal cannula on 05/13 On 05/14, is weaned down to 6 L nasal cannula and doing very well completed 9 days of dexamethasone 6mg IV, no significant improvement 05/09: increased dexamethasone to 20mg IV x 5 days and then discontinued as he is much improved and has been on steroids for 2 weeks Completed 14-day course of baricitinib CXR 05/07: no significant change compared to 04/30 Completed 5-day course of Remdesivir. Completed 5-day course of Azithromycin. Cont self-proning, flutter valve and incentive spirometry. Lovenox 50mg BID for DVT prophylaxis. Continue supplemental O2 with wall nasal cannula and wean off as tolerated Encouraged him to walk around the room, continue flutter valve and incentive spirometry Received IV Lasix twice daily for many days-changed to p.o. Lasix for tomorrow procalcitonin is normal Doing well, expect he may be able to be discharged home in the next 1 to 2 days (2) Acute respiratory failure with hypoxia: Plan: As above (3) Diabetes mellitus type 2, uncontrolled: Plan: New diagnosis. A1C 8.7%. Needs diabetes education and dietary counseling. Will ensure he has this prior to discharge Pharmacy glycemic team involved; recommendations appreciated. Was on Insulin drip early in his stay then transitioned to basal-bolus SC regime n. Control acceptable at this time Steroids have since been discontinued-I let the pharmacist know and the NPH for the morning has now been discontinued We will plan to place him on Metformin XR 500 mg twice daily upon discharge He will need close follow-up with PCP after discharge (4) Fatty liver: Plan: LFTs mildly elevated but continue to improve Follow CMP (5) Transaminitis: Plan: see above, likely secondary to fatty liver and Covid-19 Follow LFTs (6) Depressed affect: Plan: Much improved as his condition is improving (7) DVT prophylaxis: Plan: lovenox 50mg BID and plan to discharged home with Xarelto 10 mg once daily for 35 days upon discharge Plan: Dispo-continued stay tele COVID unit, but improving Expect discharge in the next 1 to 2 days. Will need a two-step walking test prior to discharge Admission and Anticipated Discharge Date Admission Date: April 30, 2021 Subjective Patient feels really well today. He was on 13 L nasal cannula at this morning and was down to 6 L nasal cannula when I saw him with a pulse ox of 90%. He denies any chest pains or shortness of breath, no abdominal pains or diarr hea. He is eating and drinking. Has no complaints. Telemetry with normal sinus rhythm with PVCs and rates in the 80s. Review of Systems Review of Systems: All systems reviewed & are unremarkable except as noted in HPI & below Physical Exam Constitutional: WD/WN, vitals as above Eyes: + anicteric sclerae Neck: trachea midline, no thyromegaly Respiratory: normal respiratory effort, lungs clear to auscultation (diminished throughout) Cardiovascular: RRR, no murmur, no edema Chest (Breasts): Chest: normal inspection of chest Gastrointestinal (Abdomen): normal bowel sounds, soft, nontender, no hepatosplenomegaly Musculoskeletal: Extremities: extremities normal to inspection; no cyanosis and no clubbing Skin: no rashes, warm and dry Neurologic: moves all extremities and awake; no focal motor deficits Psychiatric: A+Ox3, euthymic affect Lymphatic: no lymphedema Results & Data Results & Data ([facility]) Vital Signs (Past 12 Hours) Vital Signs Temp Pulse Pulse Resp BP Pulse Ox 05/14/21 19:20 36.9 C 80 17 120/72 93 05/14/21 11:53 36.7 C 60 18 108/64 96 05/14/21 09:00 49 L Laboratory Results 05/14/21 05/14/21 05/14/21 Range/Units 20:12 16:49 11:35 WBC (4.8-10.8) K/uL RBC (4.7-6.1) M/uL Hgb (14.0-18.0) g/dL Hct (42-52) % MCV (80-100) fL MCH (25-34) pg MCHC (32-36) g/dL RDW Std Deviation (36.4-46.3) fL RDW Coeff of Wan (11.5-14.5) % Plt Count (130-400) K/uL MPV (7.4-10.4) fL Immature Gran % (Auto) % Neut % (Auto) % Lymph % (Auto) % [place] % (Auto) % Eos % (Auto) % Baso % (Auto) % Neut # (Auto) (1.4-6.5) K/uL Lymph # (Auto) (1.2-3.4) K/uL [place] # (Auto) (0.11-0.59) K/uL Eos # (Auto) (0-0.5) K/uL Baso # (Auto) (0-0.2) K/uL Immature Gran # (Auto) (0.00-0.02) K/uL Sodium (136-145) mmol/L Potassium (3.5-5.1) mmol/L Chloride (98-107) mmol/L Carbon Dioxide (21-32) mmol/L Anion Gap (3-11) BUN (7-18) mg/dl Creatinine (0.6-1.4) mg/dl Est Cr Clr Drug Dosing ml/min Est GFR ( Amer) ml/min Est GFR (Non-Af Amer) ml/min BUN/Creatinine Ratio (10-20) Glucose (70-99) mg/dl POC Glucose 131 H 114 H 139 H (70-99) mg/dl Calcium (8.5-10.1) mg/dl Total Bilirubin (0.2-1) mg/dl AST (15-37) U/L ALT (12-78) Alkaline Phosphatase (45-117) U/L Total Protein (6.4-8.2) gm/dl Albumin (3.4-5.0) gm/dl Globulin (2.5-4.0) gm/dl Albumin/Globulin Ratio (0.9-2) 05/14/21 05/14/21 05/14/21 Range/Units 07:46 06:41 06:41 WBC 14.63 H (4.8-10.8) K/uL RBC 4.94 (4.7-6.1) M/uL Hgb 14.9 (14.0-18.0) g/dL Hct 43.8 (42-52) % MCV 88.7 (80-100) fL MCH 30.2 (25-34) pg MCHC 34.0 (32-36) g/dL RDW Std Deviation 42.5 (36.4-46.3) fL RDW Coeff of Wan 13.2 (11.5-14.5) % Plt Count 377 (130-400) K/uL MPV 11.2 H (7.4-10.4) fL Immature Gran % (Auto) 1.2 % Neut % (Auto) 74.3 % Lymph % (Auto) 14.8 % [place] % (Auto) 8.2 % Eos % (Auto) 1.4 % Baso % (Auto) 0.1 % Neut # (Auto) 10.87 H (1.4-6.5) K/uL Lymph # (Auto) 2.16 (1.2-3.4) K/uL [place] # (Auto) 1.20 H (0.11-0.59) K/uL Eos # (Auto) 0.21 (0-0.5) K/uL Baso # (Auto) 0.01 (0-0.2) K/uL Immature Gran # (Auto) 0.18 H (0.00-0.02) K/uL Sodium 135 L (136-145) mmol/L Potassium 4.2 (3.5-5.1) mmol/L Chloride 100 (98-107) mmol/L Carbon Dioxide 31 (21-32) mmol/L Anion Gap 4.0 (3-11) BUN 19 H (7-18) mg/dl Creatinine 0.96 (0.6-1.4) mg/dl Est Cr Clr Drug Dosing 97.8 ml/min Est GFR ( Amer) 104.9 ml/min Est GFR (Non-Af Amer) 90.5 ml/min BUN/Creatinine Ratio 20.2 H (10-20) Glucose 89 (70-99) mg/dl POC Glucose 102 H (70-99) mg/dl Calcium 9.1 (8.5-10.1) mg/dl Total Bilirubin 0.5 (0.2-1) mg/dl AST 40 H (15-37) U/L ALT 106 H (12-78) Alkaline Phosphatase 89 (45-117) U/L Total Protein 6.7 (6.4-8.2) gm/dl Albumin 2.9 L (3.4-5.0) gm/dl Globulin 3.8 (2.5-4.0) gm/dl Albumin/Globulin Ratio 0.8 L (0.9-2) PG Care Time/CCT Total # of Minutes Spent Total Time Spent with Patient: Total time spent is greater than 50% in coordination of care (as documented) at patient's floor/unit and/or counseling patient: Coding Level of Care Code 39154 Subseq Hosp Care Lvl 3 Diagnoses Pneumonia due to 2019-nCoV U07.1; J12.82 Acute respiratory failure with hypoxia J96.01 Depressed affect R45.89 Diabetes mellitus type 2, uncontrolled E11.65 Fatty liver K76.0 Transaminitis R74.01 DVT prophylaxis Z29.9
[2021-05-15 06:49] LABS: Basophils # (auto) 0.01 K/uL (0-0.2); Basophils % (auto) 0.1 %; Eosinophils # (auto) 0.45 K/uL (0-0.5); Hematocrit (blood only) 42.6 % (42-52); Hemoglobin 14.5 g/dL (14.0-18.0); Immature Granulocytes # (auto) 0.15 K/uL (0.00-0.02); Immature Granulocytes % (auto) 1.3 %; Lymphocytes % (auto) 15.2 %; Mean Platelet Volume 10.9 fL (7.4-10.4); Monocytes # (auto) 1.05 K/uL (0.11-0.59); Monocytes % (auto) 9.4 %; Neutrophils # (auto) 7.81 K/uL (1.4-6.5); Platelet Count 311 K/uL (130-400); RDW Coefficient of Variation 13.2 % (11.5-14.5); RDW Standard Deviation 42.5 fL (36.4-46.3); Red Blood Count 4.84 M/uL (4.7-6.1); White Blood Count 11.17 K/uL (4.8-10.8)
[2021-05-15 07:17] LABS: Albumin Level 2.8 gm/dl (3.4-5.0); BUN Creatinine Ratio 19.6 (10-20); Calcium 8.6 mg/dl (8.5-10.1); Creatinine Clr Calc Pharmacy 102.8 ml/min; Est GFR (African American) 111.9 ml/min; Est GFR (Non-African American) 96.6 ml/min; Potassium 3.6 mmol/L (3.5-5.1)
[2021-05-15 07:20] LABS: Albumin Globulin Ratio 0.8 (0.9-2); Bilirubin,Total 0.5 mg/dl (0.2-1); Globulin 3.5 gm/dl (2.5-4.0); Total Protein 6.3 gm/dl (6.4-8.2)
[2021-05-15] MEDS: INSULIN ASPART PER UNIT SC SCH ×4 (08:45→22:00)
[2021-05-15] MEDS: FUROSEMIDE 20 MG TAB PO SCH (08:47)
[2021-05-15] MEDS: VITAMIN B COMPLEX TAB PO SCH (08:47)
[2021-05-15] MEDS: ZINC SULFATE 220 MG CAPSULE PO SCH (08:47)
[2021-05-15] MEDS: CHOLECALCIFEROL 1,000 UNITS 25 MCG TAB PO SCH (08:47)
[2021-05-15] MEDS: guaiFENesin 600 MG TABCR PO SCH ×2 (08:47→21:43)
[2021-05-15] MEDS: FAMOTIDINE 20 MG TAB PO SCH ×2 (08:47→21:42)
[2021-05-15] MEDS: ASCORBIC ACID 500 MG TAB PO SCH (08:48)
[2021-05-15] MEDS: ENOXAPARIN INJ 60 MG/0.6 ML SYR SQ SCH ×2 (08:48→21:43)
--- NOTE | 2021-05-15 17:03 | Hospitalist Progress Note ---
Date of Service May 15, 2021 Assessment & Plan (1) Pneumonia due to 2019-nCoV: Plan: Severe, with resulting acute hypoxic respiratory failure. Procalcitonin was negative Was on high flow nasal cannula Vapotherm for almost 2 weeks and finally weaned down to 10 L nasal cannula on 05/13 On 05/14, is weaned down to 6 L nasal cannula and doing very well On 05/15, weaned down to 5 L at rest, however desaturated to 81% on 5 L with walking approximately 10 feet and took several minutes to recover back to the high 80s. Completed 14 days of dexamethasone Completed 14-day course of baricitinib Completed 5-day course of Remdesivir. Completed 5-day course of Azithromycin. CXR 05/07: no significant change compared to 04/30 And encouraged increased use of cont self-proning, flutter valve and incentive spirometry. Continue supplemental O2 with wall nasal cannula and wean off as tolerated Received IV Lasix twice daily for many days-changed to p.o. Lasix Patient is adamant about being discharged on Wednesday 05/16, however I do have concerns that he will be requiring more than 6 L with ambulation on his two-step walk test. I did order the two-step walk test for the morning of 05/16 to see how he does. (2) Acute respiratory failure with hypoxia: Plan: As above (3) Diabetes mellitus type 2, uncontrolled: Plan: New diagnosis. A1C 8.7%. Needs diabetes education and dietary counseling. Will ensure he has this prior to discharge Pharmacy glycemic team involved; recommendations appreciated. Was on Insulin drip early in his stay then transitioned to basal-bolus SC regimen. Control acceptable at this time Steroids have since been discontinued We will plan to place him on Metformin XR 500 mg twice daily upon discharge He will need close follow-up with PCP after discharge (4) Fatty liver: Plan: LFTs mildly elevated but continue to improve Follow CMP (5) Transaminitis: Plan: see above, likely secondary to fatty liver and Covid-19 Follow LFTs (6) Depressed affect: Plan: Was improved, but very irritable on 05/15 due to frustration of being in the hospital for so long (7) DVT prophylaxis: Plan: lovenox 50mg BID and plan to discharged home with Xarelto 10 mg once daily for 35 days upon discharge Plan: Dispo-continued stay tele COVID unit, but improving, adamant about discharge on 05/16 Will need a two-step walking test prior to discharge Admission and Anticipated Discharge Date Admission Date: April 30, 2021 Subjective Patient extremely irritated about still being in the hospital. He has been weaned down to 5 L nasal cannula at rest, but he stood up and walked around the head of his bed to show me how he does with exertion, and his pulse ox dropped to 81% and he staggered and almost fell over at one point. He became angry when I told him he was not ready to go home and threw his telemetry box and it bounced off the side rail of his bed as he yelled about how frustrated he was. I discussed his care with respiratory therapist who said that it is possible to have up to 8 L of oxygen at home although not ideal. Advised patient to be aggressive with flutter valve and incentive spirometry through the rest of the evening, and encouraged use of bronchodilator nebulizer treatment which he then refused. Told him that we would do a two-step walk test in the morning so that he would know right away if he would be able to be discharged tomorrow. I advised him that I would not recommend discharge if he is still needing more than 6 L of oxygen with ambulation. He did not seem to agree. Telemetry with normal sinus rhythm rates in the 50s to 80s Review of Systems Review of Systems: All systems reviewed & are unremarkable except as noted in HPI & below Physical Exam Constitutional: WD/WN, vitals as above Eyes: + anicteric sclerae Neck: trachea midline, no thyromegaly Respiratory: normal respiratory effort, lungs clear to auscultation (diminished throughout) Cardiovascular: RRR, no murmur, no edema Chest (Breasts): Chest: normal inspection of chest Gastrointestinal (Abdomen): normal bowel sounds, soft, nontender, no hepatosplenomegaly Musculoskeletal: Extremities: extremities normal to inspection; no cyanosis and no clubbing Skin: no rashes, warm and dry Neurologic: moves all extremities and awake; no focal motor deficits Psychiatric: Orientation: alert, oriented x 3 and cooperative Mood: + irritable mood Lymphatic: no lymphedema Results & Data Results & Data ([facility]) Vital Signs (Past 12 Hours) Vital Signs Temp Pulse Pulse Resp BP BP Pulse Ox 05/15/21 15:43 85 05/15/21 15:03 36.9 C 80 24 103/62 93 05/15/21 11:08 37.1 C 83 14 121/60 94 05/15/21 08:17 54 L 05/15/21 06:59 36.5 C 56 L 16 104/59 L 91 Laboratory Results 05/15/21 05/15/21 05/15/21 Range/Units 20:21 16:17 11:33 WBC (4.8-10.8) K/uL RBC (4.7-6.1) M/uL Hgb (14.0-18.0) g/dL Hct (42-52) % MCV (80-100) fL MCH (25-34) pg MCHC (32-36) g/dL RDW Std Deviation (36.4-46.3) fL RDW Coeff of Wan (11.5-14.5) % Plt Count (130-400) K/uL MPV (7.4-10.4) fL Immature Gran % (Auto) % Neut % (Auto) % Lymph % (Auto) % [place] % (Auto) % Eos % (Auto) % Baso % (Auto) % Neut # (Auto) (1.4-6.5) K/uL Lymph # (Auto) (1.2-3.4) K/uL [place] # (Auto) (0.11-0.59) K/uL Eos # (Auto) (0-0.5) K/uL Baso # (Auto) (0-0.2) K/uL Immature Gran # (Auto) (0.00-0.02) K/uL Sodium (136-145) mmol/L Potassium (3.5-5.1) mmol/L Chloride (98-107) mmol/L Carbon Dioxide (21-32) mmol/L Anion Gap (3-11) BUN (7-18) mg/dl Creatinine (0.6-1.4) mg/dl Est Cr Clr Drug Dosing ml/min Est GFR ( Amer) ml/min Est GFR (Non-Af Amer) ml/min BUN/Creatinine Ratio (10-20) Glucose (70-99) mg/dl POC Glucose 177 H 102 H 134 H (70-99) mg/dl Calcium (8.5-10.1) mg/dl Total Bilirubin (0.2-1) mg/dl AST (15-37) U/L ALT (12-78) Alkaline Phosphatase (45-117) U/L Total Protein (6.4-8.2) gm/dl Albumin (3.4-5.0) gm/dl Globulin (2.5-4.0) gm/dl Albumin/Globulin Ratio (0.9-2) 05/15/21 05/15/21 05/15/21 Range/Units 07:39 05:57 05:57 WBC 11.17 H (4.8-10.8) K/uL RBC 4.84 (4.7-6.1) M/uL Hgb 14.5 (14.0-18.0) g/dL Hct 42.6 (42-52) % MCV 88.0 (80-100) fL MCH 30.0 (25-34) pg MCHC 34.0 (32-36) g/dL RDW Std Deviation 42.5 (36.4-46.3) fL RDW Coeff of Wan 13.2 (11.5-14.5) % Plt Count 311 (130-400) K/uL MPV 10.9 H (7.4-10.4) fL Immature Gran % (Auto) 1.3 % Neut % (Auto) 70.0 % Lymph % (Auto) 15.2 % [place] % (Auto) 9.4 % Eos % (Auto) 4.0 % Baso % (Auto) 0.1 % Neut # (Auto) 7.81 H (1.4-6.5) K/uL Lymph # (Auto) 1.70 (1.2-3.4) K/uL [place] # (Auto) 1.05 H (0.11-0.59) K/uL Eos # (Auto) 0.45 (0-0.5) K/uL Baso # (Auto) 0.01 (0-0.2) K/uL Immature Gran # (Auto) 0.15 H (0.00-0.02) K/uL Sodium 136 (136-145) mmol/L Potassium 3.6 (3.5-5.1) mmol/L Chloride 100 (98-107) mmol/L Carbon Dioxide 32 (21-32) mmol/L Anion Gap 4.0 (3-11) BUN 18 (7-18) mg/dl Creatinine 0.91 (0.6-1.4) mg/dl Est Cr Clr Drug Dosing 102.8 ml/min Est GFR ( Amer) 111.9 ml/min Est GFR (Non-Af Amer) 96.6 ml/min BUN/Creatinine Ratio 19.6 (10-20) Glucose 96 (70-99) mg/dl POC Glucose 96 (70-99) mg/dl Calcium 8.6 (8.5-10.1) mg/dl Total Bilirubin 0.5 (0.2-1) mg/dl AST 36 (15-37) U/L ALT 103 H (12-78) Alkaline Phosphatase 86 (45-117) U/L Total Protein 6.3 L (6.4-8.2) gm/dl Albumin 2.8 L (3.4-5.0) gm/dl Globulin 3.5 (2.5-4.0) gm/dl Albumin/Globulin Ratio 0.8 L (0.9-2) PG Care Time/CCT Total # of Minutes Spent Total Time Spent with Patient: Total time spent is greater than 50% in coordination of care (as documented) at patient's floor/unit and/or counseling patient: Coding Level of Care Code 45603 Subseq Hosp Care Lvl 3 Diagnoses Pneumonia due to 2019-nCoV U07.1; J12.82 Acute respiratory failure with hypoxia J96.01 Diabetes mellitus type 2, uncontrolled E11.65 Fatty liver K76.0 Transaminitis R74.01 Depressed affect R45.89 DVT prophylaxis Z29.9
[2021-05-16] MEDS: FUROSEMIDE 20 MG TAB PO SCH (09:07)
[2021-05-16] MEDS: VITAMIN B COMPLEX TAB PO SCH (09:07)
[2021-05-16] MEDS: guaiFENesin 600 MG TABCR PO SCH (09:07)
[2021-05-16] MEDS: ENOXAPARIN INJ 60 MG/0.6 ML SYR SQ SCH (09:07)
[2021-05-16] MEDS: FAMOTIDINE 20 MG TAB PO SCH (09:07)
[2021-05-16] MEDS: ASCORBIC ACID 500 MG TAB PO SCH (09:08)
[2021-05-16] MEDS: ZINC SULFATE 220 MG CAPSULE PO SCH (09:08)
[2021-05-16] MEDS: CHOLECALCIFEROL 1,000 UNITS 25 MCG TAB PO SCH (09:08)
[2021-05-16] MEDS: INSULIN ASPART PER UNIT SC SCH (09:19)
--- NOTE | 2021-05-16 09:58 | Discharge Summary ---
Date of Service May 16, 2021 Principal Diagnosis COVID 19 pneumonia Acute hypoxic respiratory failure Discharge Exam General: well developed, well nourished, middle aged man, ill appearing, no distress Neck: supple, trachea midline, normal thyroid Lungs: clear to auscultation bilaterally, normal effort, no accessory muscle use, no distress Heart: regular S1 and S2, no murmur, peripheral pulses normal, capillary refill normal, no edema Abdomen: soft, NT, ND, + BS, no hepatomegaly, normal to percussion Extremities: normal in appearance, no cyanosis, no petechiae, strength is 5/5 bilaterally Neuro: awake, cooperative, moves all extremities, no focal motor deficits, CN II-XII intact, sensation in extremities intact, normal speech Skin: warm, dry, no rash, normal turgor Psych: Awake, alert oriented x 3, euthymic affect Discharge Data Allergies Allergy/AdvReac Type Severity Reaction Status Date / Time No Known Drug Allergies Allergy Mild . Verified 04/30/21 02:37 Consultations 04/30/21 02:53 ED Decision to Admit Stat Ordered Studies 04/30/21 02:38 CT angio chest PE protocol Urgent Diabetes Follow up Diabetes Follow-up Needed for Newly Diagnosed Diabetes Hospital Course (1) Pneumonia due to 2019-nCoV: Severe, with resulting acute hypoxic respiratory failure. Procalcitonin was negative Was on high flow nasal cannula Vapotherm for almost 2 weeks and finally weaned down to 10 L nasal cannula on 05/13 05/16: 2 step completed, 4L at rest, needs 8L on exertion but could walk 40 feet before saturations dropped he has a lot of family support at home, will limit exertion anticipate he will need oxygen for 2-3 weeks Completed 14 days of dexamethasone, inflammatory marker down to < 1, no further steroids needed Completed 14-day course of baricitinib Completed 5-day course of Remdesivir. Completed 5-day course of Azithromycin. CXR 05/07: no significant change compared to 04/30 stay on Lasix 20mg daily for the next week to help keep lungs dry discharge to home with family support (2) Acute respiratory failure with hypoxia: As above (3) Diabetes mellitus type 2, uncontrolled: New diagnosis. A1C 8.7%. received diabetes education off of steroids at this point, making management a little easier We will plan to place him on Metformin XR 500 mg twice daily upon discharge diabetic diet He will need close follow-up with PCP after discharge (4) Fatty liver: LFTs mildly elevated improved on follow up (5) Transaminitis: see above, likely secondary to fatty liver and Covid-19 Follow LFTs (6) Depressed affect: Was improved, but very irritable on 05/15 due to frustration of being in the hospital for so long better now that he can go (7) DVT prophylaxis: lovenox 50mg BID and plan to discharged home with Xarelto 10 mg once daily for 30 days upon discharge d/c to home Total Time Total Time Spent Total Time Spent (In Minutes): 34 minutes Total Time Includes: Examination of the Patient, Discharge Planning and Medication Reconciliation Discharge Plan Discharge Items Patient Disposition: Home - Self-Care Reason For Visit: COVID-19 PNEUMONIA/ACUTE RESP FAILURE WITH HYPOXIA Discharge Diagnosis: COVID 19 pneumonia Acute hypoxic respiratory failure Condition on Discharge: Good Goals: slowly wean back oxygen stay well nourished, well hydrated Activity: Resume your previous activity Driving/Machine Use: No limitations Weightbearing: Full weightbearing Non-emergency contact: Primary Care Provider Call non-emergency contact if: you have any medication questions Follow-up/Referrals: Janny Cool MD [Primary Care Provider] - (one week) Diet: Carb Consistent or DM2 Addtl Attending Provider Instructions: Medications: - LASIX: 20mg daily, take for the next week to keep lungs dry - METFORMIN: 500mg twice a day for diabetes, can cause some diarrhea but should resolved after a week - XARELTO: 10mg daily for 30 days to prevent blood clots as you recover from COVID COVID 19 pneumonia, acute hypoxic respiratory failure still requiring 4L at rest, you needed 8L on exertion but you walked 40 feet before saturations dropped on the 4L avoid excessive exertion, get plenty of help from family stay well nourished and well rested anticipate you will need oxygen for 2-3 weeks, slowly taper off, follow up with PCP in a week Diabetes type II new diagnosis, start on Metformin, follow low carb diet Pending Studies at Discharge: No Stand-Alone Forms: [email or web address], Work/School Release, Smoking Cessation Medications and DC Order Prescriptions: New furosemide 20 mg Tablet 20 mg PO QAM 7 Days Qty: 7 RF: 0 Xarelto 10 mg tablet 10 mg PO DAILY Qty: 30 RF: 0 Continued ascorbic acid (vitamin C) [Vitamin C] 500 mg Tablet 0 mg PO DAILY RF: 0 vitamin B complex Tablet 1 tab PO DAILY RF: 0 cholecalciferol (vitamin D3) [Vitamin D3] 25 mcg (1,000 unit) Tablet 0 mcg PO DAILY RF: 0 Discontinued ivermectin 3 mg Tablet 12 mg PO .TODAY RF: 0 Discharge Orders: Discharge Order (Routine); Ordered 05/16/21 Ordered By: Robinson Sandoval Admission Data Admit Date/Time: 04/30/21 05:55 Attending Provider: Robinson Sandoval Admit Provider: Jordy rWight Primary Care Provider: Janny Cool V. Other Providers: Jordy Wright Coding Level of Care Code D/C DAY MANAGEMENT >30 MINS Diagnoses Pneumonia due to 2019-nCoV U07.1; J12.82 Acute respiratory failure with hypoxia J96.01 Diabetes mellitus type 2, uncontrolled E11.65 Fatty liver K76.0 Transaminitis R74.01 Depressed affect R45.89 DVT prophylaxis Z29.9
--- NOTE | 2021-05-16 12:27 | Pharmacy Report ---
Pharmacy Glycemic Short Note 2 - Date of Service May 16, 2021 - Glycemic Short BSG Results (Last 24 hours): 05/15/21 05/15/21 05/16/21 16:17 20:21 07:26 POC Glucose 102 H 177 H 126 H 05/16/21 11:38 POC Glucose 145 H OUTPATIENT ANTIDIABETIC REGIMEN: * N/A * A1c = 8.7% 05/01/21 ASSESSMENT: 05/15: * BSGs well controlled over the last 24 hours. Will continue with novolog coverage only and monitor fasting BSG. Patient is tolerating a diet. 05/14 * No dexamethasone today- will hold NPH and loosen CF/CR. * May need to add Lantus back based on A1c of 8.7%. Will reassess tomorrow. None needed today for fasting BSG of 102 mg/dl. 05/11: * Patient received total of 88 units of insulin yesterday, of which 45 units were NPH * Fasting BSG 80 mg/dL - scaled back on NPH, unclear if lasting longer? * Steroids stopped today, therefore will hold NPH tomorrow and continue only SSI 05/10: * Pt received total 93 units of insulin yesterday: 40 units basal NPH and 53 units bolus. * Fasting BSG today = 96 mg/dl. * IV Dexamethasone continues at 20 mg q24h. Yesterday dinner BSG was 282 mg/dl and this was the only BSG that was significantly elevated. NPH dose today increased slightly to 45 units with IV Dex today AM. * Novolog CF tightened slightly this AM as well. 05/09: * Pt received total of 64 units of insulin yesterday: 25 units basal and 39 units bolus. * Fasting BSG today was 119 mg/dl. * IV Dexamethasone increased from 6 mg yesterday to 20 mg daily this AM. NPH dose therefore increased to 40 units (0.4 units/kg) to be given with IV Dex. May need adjusted further depending on how BSGs trend in the evening. * Novolog CR tightened slightly with breakfast. 05/07/21 * Patient's BSGs yesterday were [phone] mg/dL. Fasting today is 137 mg/dL. * Patient received 57 units of insulin yesterday. * 25 units of basal with NPH for steroid induced hyperglycemia * 22 units of bolus with NovoLog * BSGs well controlled with current orders. All BSGs <180. No changes needed to regimen at this time. 05/05 * Pt has received 47 units of insulin over the past 24hrs * 25 units of basal with NPH for steroid induced hyperglycemia * 22 units of bolus with NovoLog * BSGs well controlled with current orders. All BSGs <180. No changes needed to regimen at this time. 05/02: * BSGs well-controlled yesterday while on insulin infusion * Insulin infusion discontinued this morning due to BSGs below goal range at reasonable insulin infusion rates * Will cover IV dexamethasone with conservative NPH dose and maintain aggressive Novolog parameters 05/01: * Patient admitted for COVID19 viral pneumonia * Severely hyperglycemic on admission, but no prior dx of DM. A1c consistent with DM. Hyperglycemic but not DKA/HHS. * IV insulin infusion started due to addition of IV steroids while already hyperglycemic. Low dose basal insulin also started in attempts to make future transition to SQ regimen easier. * Insulin infusion continues this AM, running steadily at 3.8units/hr with BSGs in goal range. Discussed pt's respiratory and nutritional status w/ RN this AM. Pt quickly desaturates when off BiPAP and likely will not be able to eat much if any today. Will refrain from adding NPH insulin due to uncertain PO intake. Will wait to see response to IV dexamethasone while NPO this AM to determine if NPH would still be appropriate moving forward. Insulin drip remains most appropriate therapy this AM, however may be able to begin transition to SQ later today once more data collected. PLAN FOR INPATIENT GLYCEMIC CONTROL: * Basal insulin: * then d/c with steroids d/c * Bolus insulin: loosen * NovoLog per scale ACHS or Q6hrs while NPO * Goal Range: Low 110 mg/dL - High 140 mg/dL * Correction Factor: 25 mg/dL/unit * Nutritional / Prandial insulin per carb ratio of 1 unit per 7 grams CHO consumed PLAN FOR DISCHARGE: * HbA1c of 8.7% (05/01/21), reasonable goal for this patient would be less than 7% * Metformin should be started at the time type 2 diabetes is diagnosed unless there are contraindications. Metformin is effective and safe, is inexpensive, and may reduce risk of cardiovascular events and . * B12 supplementation may be necessary with mcc metformin use * FDA has revised the label for metformin to reflect its safety in patients with eGFR 30 mL/min or above * Recommend starting: Metformin XR 500mg PO daily with evening meal. Typically the XR formulation of metformin is better tolerated than the immediate release formulation. Continue to titrate metformin dosing upwards as recommended. Dosage increases should be made in increments of 500 mg weekly, up to 2,000 mg/day PO, given in divided doses. Doses above 2000 mg/day may be better tolerated if divided and given 3 times per day with meals. Max: 2,550 mg/day PO, in divided doses * Support Patient Self-Management * Healthy Lifestyle (diet, exercise, and smoking cessation) * Disease self-management (SMBG) * Prevention of complications (BP, Lipid goals, Immunizations) * Consider outpatient Diabetes Self-Management Education & Support * Patient will likely require additional antidiabetic therapy, but would first trial metformin and defer further decision-making to outpatient provider
== END 2021-05-16 14:00 | disposition home or self-care (01) | DRG 177 ==
LOC: ED 01:12 → SUATTDRO 05:55 → EDINP 05:55 → 2S 05-02 06:04